=== PATIENT | female | born 1935 | race Caucasian/White ===

== ENCOUNTER 2017-08-30 16:56 | Emergency (ER) | payer MEDICARE, OTHER ==
[~2017-08-30] VITALS: Ht 162.6 cm; Wt 86.2 kg
[~2017-08-30 16:56] MED LIST: ALLOPURINOL 10100 M1 PO; ALLOPURINOL 10100 M2 PO; ALLOPURINOL 30300 M3 PO; AMLODIPINE BESYL5 MG PO; ANASTROZOLE1 MG PO; ASA81BEC PO; AUGMENTIN 875875 MG PO; AVELOX 400 MG400 MG PO; AZITHROMYCIN 2250 MG PO; BENEFIBER98 GM; BENICAR20 MG PO; BENICAR40 MG PO; BIPAP MISCELL; CALCIUM + D SO1 EACH PO; CATAPRES PO; CATAPRES-TTS 10.1 MG PO; CELEXA20 MG PO; CENTRUM SILVER1 EAC2 PO; CEPHALEXIN 500500 M3 PO; CHERATUSSIN DA480 ML; CLONIDINE0.1 PO; CO Q-10200 MG PO; CYCLOBENZAPRINE10 MG PO; DARVOCET-N 1001 EAC1; DIABETES HEALT1 EAC1 PO; DIFLUCAN PO; DIGEST ADV INT1 EACH PO; DUONEB 2.5-0.5 M3 ML INH; ELIQUIS5 MG PO; FISH OIL 1,2001 EAC4 PO; HORIZANT600 MG PO; HUMALOG MI100 UNIT/6 SQ; HYDROCODON-ACE1 EACH; HYDROCODON-ACE1 EACH PO; HYDROCODONE-AP1 EAC6 PO; LASIX 40 MG TAB40 M1 PO; LASIX 40 MG TAB40 M2 PO; LEVEMIR100 UNIT/1 SUBQ; LEVSIN0.125 MG PO; LIPITOR 20 MG T20 M1 PO; LORTABELXR PO; MEDROL DOSPAK21 TA1; MOBIC7.5 MG PO; MUCINEX TA600 MG/TA2 PO; MUCINEX600 MG PO; MULTIVITAMINS; NITROFURANTOIN100 MG PO; NITROFURANTOIN25 MG PO; NORVASC5 MG PO; NOVOLOG100 UNIT/1 SUBQ; OSCIMIN SL0.125 MG SL; PREDNISONE 10 M10 M1; PREDNISONE 10 M10 M1 PO; PREDNISONE 10 M10 MG PO; PREDNISONE50 MG PO; PRILOSEC 20 MG20 MG PO; PRISTIQ50 MG PO; PULMICORT0.25 MG/3 INH; PULMICORT0.5 MG/22 INH; PURELAX510 GM PO; SIMVASTATIN40 MG PO; SINGULAIR 10 MG10 M1 PO; STOOL SOFTENER50 MG PO; SYMBICORT160 MCG/4. INH; TESSALON PERLE100 MG PO; TESSALON200 MG PO; TYLENOL325 MG PO; VENTOLIN HFA 1818 GM INH; VENTOLIN HFA INH8 GM INH; VITAMIN D1000 UNI1 PO; ZOCOR80 MG PO; ZPAK PO; calcium; digestive advantage PO
[2017-08-30] MEDS ORDERED: ELIQUIS2.5 MG PO (17:10)
[2017-08-30] MEDS ORDERED: NITROFURANTOIN50 M2 PO (17:13)
[2017-08-30] MEDS ORDERED: NORCO 5-325 TA1 EACH PO (18:40)
[2017-08-30 19:55] VITALS: BP 173/72
== END 2017-08-30 19:56 | disposition home or self-care (01) ==
LOC: M.ERS 16:56
DX: S52.021A Displaced fracture of olecranon process without intraarticular extension of right ulna, initial encounter for closed fracture (principal); S09.8XXA Other specified injuries of head, initial encounter; J44.9 Chronic obstructive pulmonary disease, unspecified; I10 Essential (primary) hypertension; E11.9 Type 2 diabetes mellitus without complications; G89.29 Other chronic pain; M54.9 Dorsalgia, unspecified; M19.90 Unspecified osteoarthritis, unspecified site; I48.91 Unspecified atrial fibrillation; G47.33 Obstructive sleep apnea (adult) (pediatric); Z88.2 Allergy status to sulfonamides; Z79.4 Long term (current) use of insulin; W01.190A Fall on same level from slipping, tripping and stumbling with subsequent striking against furniture, initial encounter; Y93.89 Activity, other specified; Y92.090 Kitchen in other non-institutional residence as the place of occurrence of the external cause; Y99.8 Other external cause status

== ENCOUNTER 2017-09-25 10:17 | Inpatient (IN) | payer MEDICARE, OTHER ==
[~2017-09-25] VITALS: Ht 162.6 cm; Wt 95.3 kg
[~2017-09-25 10:17] MED LIST changes: +ELIQUIS2.5 MG PO; +NITROFURANTOIN50 M2 PO; +NORCO 5-325 TA1 EACH PO
[2017-09-25 10:23] VITALS: BP 138/87
[2017-09-25 10:47] LABS: ABSOLUTE BASOPHILS 0.1 thou/uL (0.0-0.2); ABSOLUTE LYMPHOCYTES 1.6 thou/uL (0.8-5.3); ABSOLUTE MONOCYTES 1.1 thou/uL (0.0-1.2); BASOPHILS 1.2 %; EOSINOPHILS 0.7 %; HEMATOCRIT 35.1 % (37.0-47.0); HEMOGLOBIN 11.3 gm/dL (12.0-15.0); MCH 30.3 pg (26.0-34.0); MCHC 32.2 g/dL (28.0-37.0); MCV 94.1 fL (80.0-100.0); MONOCYTES 15.8 %; MPV 8.8 fl. (7.2-11.1); NUCLEATED RBCS 0 /100WBC; PLATELET COUNT* 310 thou/uL (150-400); POLYS 59.3 %; RBC 3.73 mil/uL (4.20-5.00); RDW-CV 14.9 % (10.5-14.5); WBC 6.8 thou/uL (4.0-11.0)
[2017-09-25 10:55] LABS: CALCIUM 8.3 mg/dL (8.5-10.1); CREATININE 1.3 mg/dL (0.6-1.3); POTASSIUM 3.6 mmol/L (3.5-5.1)
[2017-09-25 11:00] LABS: ALBUMIN 2.9 g/dL (3.4-5.0); TOTAL BILIRUBIN 0.6 mg/dL (<0.1-1.0); TOTAL PROTEIN 6.2 g/dL (6.4-8.2)
[2017-09-25 11:04] LABS: BE 0.7 mmol/L (-2 to +3); HCO3 25.5 mmol/L (22.0-26.0); PCO2 41.4 mmHg (35.0-45.0); PO2 94.3 mmHg (75.0-100.0); pH 7.407 (7.340-7.450)
[2017-09-25] MEDS ORDERED: TESSALON PERLE100 MG PO (11:06)
[2017-09-25] MEDS ORDERED: LIPITOR 20 MG T20 M1 PO (11:06)
[2017-09-25] MEDS ORDERED: ELIQUIS5 MG PO (11:09)
[2017-09-25] MEDS ORDERED: CENTRUM SILVER1 EAC4 PO (11:11)
[2017-09-25] MEDS ORDERED: MUCINEX D ER 61 EACH PO (11:11)
[2017-09-25] MEDS ORDERED: NOVOLOG100 UNIT/1 SUBQ (11:12)
[2017-09-25] MEDS ORDERED: PROBIOTIC1 EAC1 PO (11:13)
[2017-09-25] MEDS ORDERED: PULMICORT0.5 MG/22 INH (11:14)
[2017-09-25] MEDS ORDERED: VITAMIN D3400 UNIT PO (11:15)
[2017-09-25 13:45] VITALS: BP 143/53
[2017-09-25 13:49] LABS: INFLUENZA A ANTIGEN None Detected (None Detect)
[2017-09-25 14:00] VITALS: BP 150/57
[2017-09-25 20:30] VITALS: BP 137/48
[2017-09-25 23:53] VITALS: BP 128/47
[2017-09-26 04:00] VITALS: BP 105/54
[2017-09-26 05:10] LABS: ABSOLUTE LYMPHOCYTES 0.4 thou/uL (0.8-5.3); ABSOLUTE MONOCYTES 0.3 thou/uL (0.0-1.2); ABSOLUTE NEUTROPHILS 3.1 thou/uL (1.6-8.1); BASOPHILS 0.2 %; HEMATOCRIT 32.5 % (37.0-47.0); HEMOGLOBIN 10.5 gm/dL (12.0-15.0); LYMPHOCYTES 10.9 %; MCH 30.2 pg (26.0-34.0); MCHC 32.2 g/dL (28.0-37.0); MCV 93.5 fL (80.0-100.0); MONOCYTES 7.1 %; MPV 9.3 fl. (7.2-11.1); NUCLEATED RBCS 0 /100WBC; PLATELET COUNT* 278 thou/uL (150-400); POLYS 81.8 %; RBC 3.47 mil/uL (4.20-5.00); RDW-CV 14.8 % (10.5-14.5); WBC 3.8 thou/uL (4.0-11.0)
[2017-09-26 05:57] LABS: CALCIUM 8.2 mg/dL (8.5-10.1); CREATININE 1.7 mg/dL (0.6-1.3); POTASSIUM 4.1 mmol/L (3.5-5.1)
[2017-09-26 08:00] VITALS: BP 145/66
[2017-09-26 10:26] LABS: URINE BILIRUBIN NEGATIVE (Negative); URINE BLOOD NEGATIVE (Negative); URINE CLARITY SL CLOUDY; URINE COLOR YELLOW; URINE GLUCOSE-RANDOM TRACE (Negative); URINE KETONES NEGATIVE (Negative); URINE LEUKOCYTES-REFLEX NEGATIVE (Negative); URINE NITRITE-REFLEX NEGATIVE (Negative); URINE PROTEIN 1+ (Negative); URINE SPECIFIC GRAVITY 1.025 (1.005-1.030); URINE UROBILINOGEN 0.2 E.U./dl (0.2-1.0)
[2017-09-26 10:35] LABS: CASTS None Seen /LPF (None Seen); CRYSTALS None Seen /LPF (None Seen); SQUAMOUS >10 Many /LPF (0-3); URINE RBC None Seen /HPF (0-2); URINE WBC-REFLEX 0-5 Rare /HPF (0-5)
[2017-09-26 19:45] VITALS: BP 109/39
[2017-09-26 23:49] VITALS: BP 142/51
[2017-09-27 03:08] LABS: GLYCOHEMOGLOBIN (HGB A1C) 7.1 % (4.8-5.6)
[2017-09-27 04:02] LABS: HEMATOCRIT 30.8 % (37.0-47.0); HEMOGLOBIN 9.9 gm/dL (12.0-15.0); MCHC 32.2 g/dL (28.0-37.0); MCV 93.2 fL (80.0-100.0); NUCLEATED RBCS 0 /100WBC; PLATELET COUNT* 256 thou/uL (150-400); RDW-CV 14.6 % (10.5-14.5)
[2017-09-27 04:20] LABS: ALBUMIN 2.5 g/dL (3.4-5.0); CALCIUM 8.1 mg/dL (8.5-10.1); POTASSIUM 3.9 mmol/L (3.5-5.1); TOTAL BILIRUBIN 0.4 mg/dL (<0.1-1.0); TOTAL PROTEIN 5.5 g/dL (6.4-8.2)
[2017-09-27 04:23] LABS: WBC 13.8 thou/uL (4.0-11.0)
[2017-09-27 06:54] LABS: ABSOLUTE LYMPHOCYTES 0.7 thou/uL (0.8-5.3); ABSOLUTE MONOCYTES 0.3 thou/uL (0.0-1.2); ABSOLUTE NEUTROPHILS 12.8 thou/uL (1.6-8.1); PLATELET ESTIMATE ADEQUATE
[2017-09-27 06:55] LABS: ANISOCYTOSIS 1+; OVALOCYTES 1+; POIKILOCYTOSIS 1+
[2017-09-27 07:30] VITALS: BP 142/50
[2017-09-27 16:00] VITALS: BP 140/44
[2017-09-27 20:00] VITALS: BP 152/65
[2017-09-28 07:45] VITALS: BP 115/50
[2017-09-28 11:45] LABS: CALCIUM 8.2 mg/dL (8.5-10.1); POTASSIUM 4.4 mmol/L (3.5-5.1)
[2017-09-28 16:50] VITALS: BP 137/59
[2017-09-28 19:50] VITALS: BP 129/54
[2017-09-29 08:10] VITALS: BP 156/57
[2017-09-29 10:53] LABS: CALCIUM 7.9 mg/dL (8.5-10.1); CREATININE 1.8 mg/dL (0.6-1.3); POTASSIUM 4.1 mmol/L (3.5-5.1)
[2017-09-29 11:21] VITALS: BP 156/57
[2017-09-29] MEDS ORDERED: ELIQUIS2.5 MG PO (12:22)
[2017-09-29] MEDS ORDERED: LEVAQUIN 250 M250 MG PO (12:23)
[2017-09-29] MEDS ORDERED: HYDROCODONE-AP1 EAC6 PO (12:25)
[2017-09-29] MEDS ORDERED: PREDNISONE 10 M10 MG PO (12:26)
[2017-09-29] MEDS ORDERED: PROTONIX40 M1 PO (12:27)
[2017-09-29] MEDS ORDERED: VITAMIN D1000 UNI1 PO (12:29)
== END 2017-09-29 13:40 | DRG 177 ==
LOC: M.ERS 10:17 → M.TBA-ER 12:51 → M.2W 12:51 → M.3W 09-26 16:35
PROVIDERS: Personal Emergency Response Attendant; ADMIT Internal Medicine
DX: J10.00 Influenza due to other identified influenza virus with unspecified type of pneumonia (principal); J96.21 Acute and chronic respiratory failure with hypoxia; J15.6 Pneumonia due to other Gram-negative bacteria; J44.1 Chronic obstructive pulmonary disease with (acute) exacerbation; J44.0 Chronic obstructive pulmonary disease with (acute) lower respiratory infection; R65.10 Systemic inflammatory response syndrome (SIRS) of non-infectious origin without acute organ dysfunction; N17.9 Acute kidney failure, unspecified; E11.9 Type 2 diabetes mellitus without complications; J20.9 Acute bronchitis, unspecified; I10 Essential (primary) hypertension; M19.90 Unspecified osteoarthritis, unspecified site; G47.33 Obstructive sleep apnea (adult) (pediatric); I48.91 Unspecified atrial fibrillation; Z87.891 Personal history of nicotine dependence; Z86.73 Personal history of transient ischemic attack (TIA), and cerebral infarction without residual deficits; Z79.01 Long term (current) use of anticoagulants; Z79.4 Long term (current) use of insulin; Z79.899 Other long term (current) drug therapy; Z88.2 Allergy status to sulfonamides; Z82.49 Family history of ischemic heart disease and other diseases of the circulatory system; Z83.3 Family history of diabetes mellitus

== ENCOUNTER 2017-10-03 11:34 | Inpatient (IN) | payer MEDICARE, OTHER ==
[~2017-10-03] VITALS: Ht 160 cm; Wt 88.5 kg
[~2017-10-03 11:34] MED LIST changes: +CENTRUM SILVER1 EAC4 PO; +LEVAQUIN 250 M250 MG PO; +MUCINEX D ER 61 EACH PO; +PROBIOTIC1 EAC1 PO; +PROTONIX40 M1 PO; +VITAMIN D3400 UNIT PO
[2017-10-03 11:48] VITALS: BP 183/89
[2017-10-03 13:03] LABS: BE 4.2 mmol/L (-2 to +3); HCO3 28.7 mmol/L (22.0-26.0); PO2 79.7 mmHg (75.0-100.0); pH 7.443 (7.340-7.450)
[2017-10-03 13:26] LABS: HEMATOCRIT 36.4 % (37.0-47.0); HEMOGLOBIN 11.4 gm/dL (12.0-15.0); MCH 29.4 pg (26.0-34.0); MCHC 31.3 g/dL (28.0-37.0); MCV 93.9 fL (80.0-100.0); MPV 9.8 fl. (7.2-11.1); NUCLEATED RBCS 0 /100WBC; PLATELET COUNT* 286 thou/uL (150-400); RBC 3.88 mil/uL (4.20-5.00); WBC 28.4 thou/uL (4.0-11.0)
[2017-10-03 13:34] LABS: CREATININE 1.3 mg/dL (0.6-1.3); POTASSIUM 4.4 mmol/L (3.5-5.1)
[2017-10-03 13:43] LABS: ALBUMIN 2.8 g/dL (3.4-5.0); TOTAL BILIRUBIN 1.6 mg/dL (<0.1-1.0); TOTAL PROTEIN 6.4 g/dL (6.4-8.2)
[2017-10-03 14:07] LABS: ABSOLUTE LYMPHOCYTES 1.7 thou/uL (0.8-5.3); ABSOLUTE MONOCYTES 0.9 thou/uL (0.0-1.2); ABSOLUTE NEUTROPHILS 25.8 thou/uL (1.6-8.1); ATYPICAL LYMPHS 3 %; PLATELET ESTIMATE ADEQUATE
[2017-10-03 16:32] VITALS: BP 125/68
--- NOTE | 2017-10-03 17:09 | EKG ---
[place] [address] ELECTROCARDIOGRAM REPORT Name: GORDOAZEB Room: [address] R.#: [id number] Admission: 10/03/17 Attend Phys: Ruby Jolly MD Discharge: Date of : 35 Report #: [id number] THIS REPORT FOR: //name// [facility] ED Test Date: 2017-10-03 Test Time: 12:56:26 Pat Name: AZEB ALARCON Department: Room: [facility] Gender: F Director Of Retail Analytics: Jose De Jesus FANG : 1935 Requested By: Marley Gil Order Number: [id number] MD: Gallo Martinez Measurements Intervals [place] Rate: 85 P: VT: QRS: -15 QRSD: 141 T: 4 QT: 415 QTc: 494 Interpretive Statements Atrial fibrillation Ventricular premature complex Right bundle branch block Compared to ECG 06/20/2016 13:45:59 Ventricular premature complex(es) now present Electronically Signed On 10-03-2017 17:09:15 SOLID STATE TESTER by Gallo Martinez [email or web address] <ELECTRONICALLY SIGNED> By: Gallo Martinez MD, [facility] 10/03/17 1709 [id number] Gallo Martinez MD, [facility] /EPI
[2017-10-03] MEDS ORDERED: MUCINEX600 MG PO (18:57)
[2017-10-03 20:00] VITALS: BP 141/83
[2017-10-04 00:33] VITALS: BP 139/59
[2017-10-04 04:43] VITALS: BP 139/58
[2017-10-04 05:00] LABS: HEMATOCRIT 28.7 % (37.0-47.0); MCH 30.1 pg (26.0-34.0); MCHC 32.9 g/dL (28.0-37.0); MCV 91.6 fL (80.0-100.0); MPV 10.2 fl. (7.2-11.1); RBC 3.14 mil/uL (4.20-5.00); RDW-CV 14.8 % (10.5-14.5); WBC 14.7 thou/uL (4.0-11.0)
[2017-10-04 05:02] LABS: CALCIUM 8.4 mg/dL (8.5-10.1); CREATININE 1.8 mg/dL (0.6-1.3); POTASSIUM 4.3 mmol/L (3.5-5.1)
[2017-10-04 05:27] LABS: HEMOGLOBIN 9.4 gm/dL (12.0-15.0)
--- NOTE | 2017-10-04 05:38 | NUR ---
PT CARE ASSUMED AFTER REPORT. ASSESSMENT COMPLETE. AFIB/AFLUTTER ON MONITOR. O2 2L NC. DENIES PAIN. INCREASED BG TREATED PER ORDERS. WEAK. UP TO BEDSIDE COMMODE WITH ASSIST. FALL PRECAUTIONS IN PLACE INCLUDING BED ALARM. CALL LIGHT IN REACH. BED IN LOWEST POSITION. SLOW TO PROGRESS TOWARDS GOALS.
[2017-10-04 08:00] VITALS: BP 104/62
[2017-10-04 12:07] VITALS: BP 150/71
--- NOTE | 2017-10-04 12:44 | NUR ---
CM ASSESSMENT: Pt is A&O. Resides at home with dtr. Per chart, it appears that Pt has been at [facility], spoke with Karol, tools administrator, she confirmed that Pt had recently discharged from there. Pt states that her dtr takes care of her. Pt wears home o2 at [facility], provided through [facility] and has a cpap. Pt uses a walker for mobility. Hx of , unsure of the name of the agency. Hx of [facility]. Pt's goal is to return home. Following for dc needs.
[2017-10-04 17:17] VITALS: BP 156/68
--- NOTE | 2017-10-04 19:11 | NUR ---
PT SLEPT THROUGHOUT DAY DENIES PAIN OR DISCOMFORT SOA NOTED ON 2L NC IN BED DID NOT GET UP EXCEPT TO VOID CALL LIGHT IN REACH
[2017-10-04 20:00] VITALS: BP 147/58
[2017-10-05] VITALS (7 sets, daily range): BP systolic 98–159; BP diastolic 43–79
[2017-10-05 05:26] LABS: HEMATOCRIT 33.3 % (37.0-47.0); HEMOGLOBIN 10.7 gm/dL (12.0-15.0); MCH 29.4 pg (26.0-34.0); MCHC 32.1 g/dL (28.0-37.0); MCV 91.6 fL (80.0-100.0); MPV 9.8 fl. (7.2-11.1); NUCLEATED RBCS 0 /100WBC; PLATELET COUNT* 298 thou/uL (150-400); RBC 3.64 mil/uL (4.20-5.00); RDW-CV 14.8 % (10.5-14.5); WBC 27.3 thou/uL (4.0-11.0)
--- NOTE | 2017-10-05 05:30 | NUR ---
PT CARE ASSUMED AFTER REPORT. ASSESSMENT COMPLETE. AFIB/AFLUTTER ON MONITOR. DENIES PAIN. O2 2L NC. PT WEAK. FALL PRECAUTIONS IN PLACE INCLUDING BED ALARM. CALL LIGHT IN REACH. BED IN LOWEST POSITION. SLOW TO PROGRESS TOWARDS GOALS.
[2017-10-05 05:53] LABS: CALCIUM 8.5 mg/dL (8.5-10.1); CREATININE 1.6 mg/dL (0.6-1.3)
[2017-10-05 06:06] LABS: ABSOLUTE MONOCYTES 1.6 thou/uL (0.0-1.2); ABSOLUTE NEUTROPHILS 22.7 thou/uL (1.6-8.1); PLATELET ESTIMATE ADEQUATE
[2017-10-05 06:07] LABS: ANISOCYTOSIS 1+; POIKILOCYTOSIS 1+
--- NOTE | 2017-10-05 09:44 | NUR ---
CM faxed initial referral to [facility] wants Pt to dc there for SNF. Awaiting decision to accept.
--- NOTE | 2017-10-05 18:48 | NUR ---
PT C/O OF SOA WHILE EATING BREAKFAST. PT WAS ABLE TO RESOLVE ON OWN AFTER GUIDED BREATHING EXERCISE. RESPIRATIONS SLIGHTLY LABORED, COARSE THROUGHOUT, LOOSE OCCASIONAL COUGH. O2 SAT MID 90'S 2L O2 NC. PT UP TO BSC WITH MOD ASSIST X1. PT ABLE TO MAKE NEEDS KNOWN, CALL LIGHT IN REACH
[2017-10-06 03:45] VITALS: BP 144/56
[2017-10-06 05:10] LABS: HEMATOCRIT 30.6 % (37.0-47.0); HEMOGLOBIN 9.8 gm/dL (12.0-15.0); MCH 29.9 pg (26.0-34.0); MCHC 31.9 g/dL (28.0-37.0); MCV 93.7 fL (80.0-100.0); MPV 11.1 fl. (7.2-11.1); RBC 3.26 mil/uL (4.20-5.00); RDW-CV 15.4 % (10.5-14.5); WBC 16.5 thou/uL (4.0-11.0)
[2017-10-06 05:26] LABS: ALBUMIN 2.4 g/dL (3.4-5.0); CREATININE 1.6 mg/dL (0.6-1.3); MAGNESIUM 2.2 mg/dL (1.8-2.4); POTASSIUM 4.8 mmol/L (3.5-5.1); TOTAL BILIRUBIN 0.7 mg/dL (<0.1-1.0); TOTAL PROTEIN 5.1 g/dL (6.4-8.2)
--- NOTE | 2017-10-06 05:42 | NUR ---
PT CARE ASSUMED AFTER REPORT. ASSESSMENT COMPLETE. AFIB/AFLUTTER ON MONITOR. BG 37 PER AM LABS. HYPOGLYCEMIC PROTOCOL FOLLOWED. D50 GIVEN. WILL CONTINUE TO MONITOR GLUCOSE LEVEL. O2 2L NC. DENIES PAIN. FALL PRECAUTIONS IN PLACE INCLUDING BED ALARM. CALL LIGHT IN REACH. BED IN LOWEST POSITION. SLOW TO PROGRESS TOWARDS GOALS.
[2017-10-06 09:00] VITALS: BP 143/62
[2017-10-06 12:05] VITALS: BP 144/64
--- NOTE | 2017-10-06 15:32 | NUR ---
I have reviewed the documentation by RINA SONG from 10/06/17 to 10/06/17 and I concur with it. GALE SORIANO
[2017-10-06 15:33] VITALS: BP 176/67
--- NOTE | 2017-10-06 18:25 | NUR ---
ASSUMED PT CARE AT 0730, FULL ASSESMENT DONE CHARTED. PT A/O X4, DENIES PAIN, VSS, BS IN APPROPRIATE RANGE THIS SHIFT, INSULIN GIVEN ONLY WITH DINNER. PT AFIB/AFLUTTER ON THE MONITOR. PT HAS PRODUCTIVE COUGH, WHEEZY, ON 2L O2 SATS 98%. PT DID COUGH WHEN TAKING PILLS THIS AM, ST CONSULTED, PT OK WITH THIN LIQUIDS, NO STRAW. PT EDUCATED ON THIS. PT UP WITH 1 ASSIST TO BSC. FALL PRECATIONS IN PLACE, CALL LIGHT IN REACH, PT USES IT APPROPRIATLY. WILL CONTINUE WITH PLAN OF CARE.
[2017-10-06 19:45] VITALS: BP 151/69
[2017-10-07 00:04] VITALS: BP 131/62
[2017-10-07 04:00] VITALS: BP 136/70
--- NOTE | 2017-10-07 05:23 | NUR ---
END SHIFT: PT RESTED WELL. NO COMPLAINS. AFIB NOTED ON MONIOR. ASSESSMENT UNCHANGED. VSS. 2L NC ON AND TOLERATING WELL. R ELBOW BRACE IN PLACE. SAFETY PRECAUTIONS IN PLACE. CALL LIGHT IN REACH. PERFORMED HOURLY ROUNDING. WILL CONT TO MONITOR.
[2017-10-07 05:35] LABS: HEMATOCRIT 30.2 % (37.0-47.0); HEMOGLOBIN 9.7 gm/dL (12.0-15.0); MCH 29.9 pg (26.0-34.0); MCV 93.3 fL (80.0-100.0); MPV 10.2 fl. (7.2-11.1); RBC 3.24 mil/uL (4.20-5.00); RDW-CV 15.4 % (10.5-14.5)
[2017-10-07 05:53] LABS: CALCIUM 7.8 mg/dL (8.5-10.1); CREATININE 1.8 mg/dL (0.6-1.3); MAGNESIUM 2.2 mg/dL (1.8-2.4); POTASSIUM 4.7 mmol/L (3.5-5.1)
[2017-10-07 08:04] VITALS: BP 117/76
[2017-10-07 12:00] VITALS: BP 145/65
[2017-10-07 20:00] VITALS: BP 141/58
--- NOTE | 2017-10-07 20:40 | NUR ---
ASSUMED CARES OF PT AT 1810 FROM TELE TRANSFER. PT ARRIVED VIA BED. BED IN LOW AND LOCKED POSITION. CALL BUTTON AND PERSONAL ITEMS IN PT REACH. DOCUMENTATION/ASSESSMENT REVIEWED AND AGREED BY THIS NURSE. PT STABLE AT TRANSFER AND SHIFT CHANGE. PT A&O X4, TALKATIVE, COOPERATIVE, DAUGHTER AT BEDSIDE. PT EDUCATED ON ROOM AND FALL PRECAUTIONS TO REINFORCE KNOWLEDGE AND AWARENESS. PT DENIES PAIN. LEFT HAND 22 GAUGE IV PATENT TO FLUSH. LUNGS COARSE TO AUSCULTATION. HOURLY ROUNDS AND ACCU CHECKS COMPLETED FOR THIS SHIFT. REPORT TO CONTINUOUS CRUSHER OPERATOR FOR CONTINUED CARES. BM TODAY.
[2017-10-08 07:30] VITALS: BP 150/68
--- NOTE | 2017-10-08 08:08 | NUR ---
PATIENT PROGRESS CONTINUES TOWARDS GOALS WITHOUT S/SX OF ACUTE DISTRESS IV ABX CONTINUES WITHOUT S/SX OF ADVERSE EFFECTS MEDICATIONS ADMINISTERED WHOLE 1 AT A TIME WITH APPLESAUCE PATIENT RESTING COMFORTABLY REPORT GIVEN TO ONCOMING RN
--- NOTE | 2017-10-08 09:39 | NUR ---
[facility] should [facility] a bed available Tuesday or Tuesday for Pt. Spoke with Neha, she had a few questions 1. is bipap continuous-no, at NOC 2. how old is fx 3. smoke free facility, does Pt still smoke? p:[phone] f:[phone]
[2017-10-08 16:00] VITALS: BP 137/50
--- NOTE | 2017-10-08 16:11 | NUR ---
ASSUMED CARE AT 0730. ALERT ORIENTED PLEASANT COPERATIVE. HX OF COPD PNEUMONIA. O2 ON AT 2L/M PER N/C CONTINOUSLY. SITTING UP IN CHAIR AT BEDSIDE FOR BREAKFAST. FEEDS SELF APPETITE GOOD. BLOOD SUGARS RUNNING HIGH [phone]. WORKING WITH P.T. AMBULATING IN HALLS WITH WALKER. DENIES PAIN OR REQUESTS. SLEPT AT LONG INTERVAL AFTER P.T. SESSION. USES CALL LIGHT APPROPRIATELY FOR ASSISTANCE. WILL BE DISCHARGED TOMORROW PER HIMS. IV ANTIBIOTICS WERE INFUSED NEW ORDERS PER HIMS.
[2017-10-08 17:33] VITALS: BP 132/48
--- NOTE | 2017-10-08 19:02 | NUR ---
PT. UP IN CHAIR AT BEDSIDE FOR SUPPER MEAL. BLOOD SUGAR 271 AT SUPPER. DENIES REQUESTS BRACE REAPPLIED ON RT. ELBOW X 1.
[2017-10-08 20:00] VITALS: BP 149/55
--- NOTE | 2017-10-09 04:54 | NUR ---
ASSUMED CARE OF PATIENT AT 1900 THE PATIENT O2 SAT MAINTAINED ON NC AT 2 L CONTINUES TO BE UP WITH ASSIST ROUTINE REGIMEN CONTINUES TO BE EFFECTIVE FOR SX MANAGEMENT PATINET PROGRESSING TOWARDS GOALS WITHOUT S/SX OF ACUTE DISTRESS SHIFT SAFETY INTERVENTIONS CONTINUE BED LOWERED WHEELS LOCKED CALL LIGHT IN REACH SIDE RAILS UP REPORT TO BE GIVEN TO ONCOMING RN
[2017-10-09 09:30] VITALS: BP 165/56
[2017-10-09 16:40] VITALS: BP 149/47
--- NOTE | 2017-10-09 20:47 | NUR ---
ASSUMED CARES OF PT AT 0700. PT IN BED, BED IN LOW LOCKED POSITION. FALL PRECAUTIONS IN PLACE. CALL BUTTON AND PERSONAL ITEMS IN PT REACH. PT A&O X4, IRREGULAR R/T CONTROLLED AFIB. VSS ON RA, AFEBRILE, PERRLA, SKIN INTACT, SCATTERED BRUISING AND SCARS. PT UP 1-2 ASSIST/WALKER TO BSC/WEAK. LEFT HAND 22 GAUGE IV PATENT TO FLUSH. HOURLY ROUNDING, Q2 TURNS AND ACCU CHECKS COMPLETED, LISPRO AND HUMALIN R GIVEN ORDERED. MEDS TAKEN 1-2 AT A TIME IN APPLESAUCE/MARY ANNE. PUDDING, WELL DONE. LOOSE, NONE PRODUCTIVE COUGH OCC. PT PROGRESSING TOWARDS GOAL, POSSIBLE D/C TOMORROW BACK TO SNF. REPORT TO HEAT ENGINEERING TEACHER FOR CONTINUED CARES.
[2017-10-09 21:35] VITALS: BP 167/80
--- NOTE | 2017-10-10 06:34 | NUR ---
Pt reports she slept "very well" overnight. Incontinent of bowel & bladder while up in chair last evening, likely related to coughing spell she had. VSS, and remains on RA with SaO2 mid-90s. States she is hopeful of being discharged today. Will continue to monitor.
[2017-10-10 08:00] VITALS: BP 169/73
--- NOTE | 2017-10-10 12:21 | NUR ---
Nutrition: Pt seen for LOS. Pt and dtr stated that pt is discharging to facility in [place] today. They had no nutrition questions/concerns at this time. Low risk.
[2017-10-10] MEDS ORDERED: AZITHROMYCIN 2250 MG PO (14:21)
[2017-10-10 14:22] VITALS: BP 169/73
[2017-10-10] MEDS ORDERED: CEFDINIR300 MG PO (14:22)
[2017-10-10 14:43] VITALS: BP 169/73
--- NOTE | 2017-10-10 14:44 | NUR ---
SW received dc orders and called [facility] [phone] and spoke with Kelsi who requested updated information and answers to her questions to which SW explained Bipap only at night, nurse stated actually CPAP and pt stated that she does not use her machine. According to nurse, pt has used 2L O2 at night. SW relayed info (after speaking with pt dtr) that pt fracture is at least 6 weeks old and pt has not smoked since the 1960s. Pt dtr to provide transportation. PALOMO faxed dc orders to fax [phone] and provided nurse with number and name of Iesha to whom to call report.
--- NOTE | 2017-10-10 16:07 | NUR ---
[facility] LEFT WITH DAUGHTER ASSISTX2 WITH A WALKER SOA AND WHEEZING STILL NOTED WITH COARSE LUNG SOUNDS PT TO WEAR 2L NC AT NIGHT OR CPAP/BIPAP AT NIGHT AND FACILITY AWARE PT IS DIABETIC ACHS ALERT AND ORIENTED FORGETFUL AND CONFUSED AT TIMES INCONTINENT NOTED IRREGULAR HR HX OF A-FIB ON ELIQUIS GAVE NUMBER TO JOCELYN IF NEED ANY QUESTIONS OR CONCERNS ANSWERED
== END 2017-10-10 16:10 | DRG 177 ==
LOC: M.ERS 11:34 → M.TBA-ER 14:56 → M.2W 14:56 → M.3W 10-07 18:11
PROVIDERS: Personal Emergency Response Attendant; ADMIT Internal Medicine
DX: J11.08 Influenza due to unidentified influenza virus with specified pneumonia (principal); J96.91 Respiratory failure, unspecified with hypoxia; J15.6 Pneumonia due to other Gram-negative bacteria; J44.1 Chronic obstructive pulmonary disease with (acute) exacerbation; J44.0 Chronic obstructive pulmonary disease with (acute) lower respiratory infection; N17.9 Acute kidney failure, unspecified; I10 Essential (primary) hypertension; E11.9 Type 2 diabetes mellitus without complications; M19.90 Unspecified osteoarthritis, unspecified site; G47.33 Obstructive sleep apnea (adult) (pediatric); K59.00 Constipation, unspecified; I48.91 Unspecified atrial fibrillation; Z87.891 Personal history of nicotine dependence; Z79.01 Long term (current) use of anticoagulants; Z79.4 Long term (current) use of insulin; Z79.899 Other long term (current) drug therapy; Z88.2 Allergy status to sulfonamides; Z82.49 Family history of ischemic heart disease and other diseases of the circulatory system; Z83.3 Family history of diabetes mellitus

== ENCOUNTER 2018-02-20 09:48 | Inpatient (IN) | payer MEDICARE, OTHER ==
[~2018-02-20] VITALS: Ht 162.6 cm; Wt 81.6 kg
[~2018-02-20 09:48] MED LIST changes: +CEFDINIR300 MG PO
[2018-02-20 09:49] VITALS: BP 181/74
[2018-02-20 10:31] LABS: ABSOLUTE BASOPHILS 0.2 thou/uL (0.0-0.2); ABSOLUTE EOSINOPHILS 0.2 thou/uL (0.0-0.7); ABSOLUTE LYMPHOCYTES 2.2 thou/uL (0.8-5.3); ABSOLUTE MONOCYTES 1.3 thou/uL (0.0-1.2); BASOPHILS 1.3 %; EOSINOPHILS 1.6 %; HEMATOCRIT 36.6 % (37.0-47.0); HEMOGLOBIN 11.7 gm/dL (12.0-15.0); MCH 29.3 pg (26.0-34.0); MCHC 31.9 g/dL (28.0-37.0); MCV 91.8 fL (80.0-100.0); MONOCYTES 10.2 %; MPV 9.4 fl. (7.2-11.1); NUCLEATED RBCS 0 /100WBC; PLATELET COUNT* 275 thou/uL (150-400); POLYS 69.9 %; RBC 3.98 mil/uL (4.20-5.00); RDW-CV 15.6 % (10.5-14.5); WBC 12.8 thou/uL (4.0-11.0)
[2018-02-20 10:42] LABS: ANION GAP 7 mmol/L (7-16); BUN 25 mg/dL (7-18); CALCIUM 9.2 mg/dL (8.5-10.1); CHLORIDE 109 mmol/L (98-107); CO2 27 mmol/L (21-32); CREATININE 1.3 mg/dL (0.6-1.3); GLUCOSE 107 mg/dL (70-99); POTASSIUM 3.5 mmol/L (3.5-5.1); SODIUM 143 mmol/L (136-145)
[2018-02-20 10:53] LABS: ALBUMIN 3.1 g/dL (3.4-5.0); ALKALINE PHOSPHATASE 77 U/L (46-116); NT-PRO BRAIN NAT PEPTIDE 8727 pg/mL (<300); SGOT 15 U/L (15-37); SGPT 14 U/L (30-65); TOTAL BILIRUBIN 0.9 mg/dL (<0.1-1.0); TOTAL PROTEIN 6.5 g/dL (6.4-8.2); TROPONIN-I LEVEL <0.06 ng/mL (<0.06)
[2018-02-20 11:30] LABS: URINE BILIRUBIN NEGATIVE (Negative); URINE BLOOD 1+ (Negative); URINE CLARITY CLEAR; URINE COLOR YELLOW; URINE GLUCOSE-RANDOM NEGATIVE (Negative); URINE KETONES NEGATIVE (Negative); URINE LEUKOCYTES-REFLEX NEGATIVE (Negative); URINE NITRITE-REFLEX NEGATIVE (Negative); URINE PROTEIN 2+ (Negative); URINE SPECIFIC GRAVITY 1.025 (1.005-1.030); URINE UROBILINOGEN 0.2 E.U./dl (0.2-1.0)
[2018-02-20 11:44] LABS: CRYSTALS None Seen /LPF (None Seen); SQUAMOUS NONE SEEN /LPF (0-3); URINE WBC-REFLEX 0-5 Rare /HPF (0-5)
[2018-02-20 11:45] LABS: BACTERIA-REFLEX None Seen /HPF (None Seen); CASTS None Seen /LPF (None Seen); URINE RBC 0-2 Rare /HPF (0-2)
[2018-02-20 13:28] VITALS: BP 149/62
--- NOTE | 2018-02-20 15:29 | EKG ---
[place] [address] ELECTROCARDIOGRAM REPORT Name: AZEB ALARCON Room: [address] IN [facility]#: [id number] Admission: 02/20/18 Attend Phys: Jaxon Hdez MD Discharge: Date of : 35 Report #: [id number] THIS REPORT FOR: //name// [facility] ED Test Date: 2018-02-20 Test Time: 09:53:14 Pat Name: AZEB ALARCON Department: Room: Gender: F Fast Food Sales Assistant: Jose De Jesus GTZ : 1935 Requested By: Carl Kirkland Order Number: [id number] MD: Damaso Renteria Measurements Intervals [place] Rate: 88 P: AR: QRS: -43 QRSD: 147 T: -9 QT: 409 QTc: 495 Interpretive Statements Atrial fibrillation Right bundle branch block septal infarct, age indeterminate Compared to ECG 10/03/2017 12:56:26 Ventricular premature complex(es) no longer present Electronically Signed On 02-20-2018 15:28:58 CDT by Damaso Renteria [email or web address] <ELECTRONICALLY SIGNED> By: Damaso Renteria MD, [facility] 02/20/18 [id number] Damaso Renteria MD, [facility] /EPI
[2018-02-20 16:30] VITALS: BP 152/55
--- NOTE | 2018-02-20 19:00 | NUR ---
ALERT AND ORIENTED X4. FORGETFUL AT TIMES. IV IS PATENT AND INFUSING. DENIES PAIN AND NAUSEA. ATTENDED THERAPY THIS AFTERNOON. TOLERATING DIET. VSS ON 2LO2. HOURLY ROUNDS HAVE BEEN MAINTAINED SINCE ARRIVING ON UNIT. CALL LIGHT IS WITHIN REACH. NURSING WILL CONTINUE TO MONITOR.
[2018-02-20 20:00] VITALS: BP 150/69
[2018-02-21 04:08] LABS: HEMATOCRIT 32.5 % (37.0-47.0); HEMOGLOBIN 10.3 gm/dL (12.0-15.0); MCH 29.3 pg (26.0-34.0); MCHC 31.7 g/dL (28.0-37.0); MCV 92.5 fL (80.0-100.0); RBC 3.51 mil/uL (4.20-5.00); RDW-CV 15.9 % (10.5-14.5); WBC 11.9 thou/uL (4.0-11.0)
[2018-02-21 04:27] LABS: CALCIUM 8.7 mg/dL (8.5-10.1); CREATININE 1.6 mg/dL (0.6-1.3); MAGNESIUM 1.3 mg/dL (1.8-2.4); POTASSIUM 4.4 mmol/L (3.5-5.1)
--- NOTE | 2018-02-21 05:44 | NUR ---
PATIENT ALERT AND ORIENTED X4 BUT FORGETFUL AT TIMES. REPOSITIONED FOR COMFORT. IV ABX INFUSED ORDERED. NON PRODUCTIVE COUGH NOTED. CONTACT ISOLATION MAINTAINED PENDING MRSA RESULTS. VITALS STABLE ON 1.5L NC. CONTINUE TO MONITIOR.
[2018-02-21 08:00] VITALS: BP 166/72
--- NOTE | 2018-02-21 15:13 | NUR ---
MET WITH PT TO DISCUSS HOME SITUATION/DC PLANNING. PT LIVES WITH HER DTR/PARRIS. SHE IS FAIRLY INDEPENDENT AT HOME. USES WALKER, W/C, SHOWER BENCH, NEB O2 AND CPAP THRU [facility]. SHE IS CURRENT WITH [facility] AND WOULD LIKE TO CONTINUE WITH THEM [place]. NOTIFIED THEM THAT PT WAS HOSPITALIZED. PT HAS HAD SNF STAYS AT [facility] AND [facility]. WOULD PREFER [facility] IF NEEDED SNF BUT SHE WANTS TO RETURN HOME AT [place]. DTR PARRIS IS DPOA. WILL FOLLOW ENCOURAGED PT TO WORK WITH THERAPY SO SHE KEEPS UP HER STRENGTH
--- NOTE | 2018-02-21 16:35 | NUR ---
PT C/O SOA AT REST, RESPIRATIONS EVEN AND UNLABORED AT REST. LUNGS CLEAR AND DIM IN BASES, NONPRODUCTIVE LOOSE SOUNDING COUGH. C/O PAIN IN LEGS, GIVEN PAIN MED ORDERED WITH SOME RELIEF ON REASSESSMENT. PT UP TO CHAIR WITH ASSIST X1. PT ABLE TO MAKE NEEDS KNOWN, CALL LIGHT IN REACH
[2018-02-21 16:54] VITALS: BP 127/70
[2018-02-21 20:00] VITALS: BP 131/47
[2018-02-22 04:40] LABS: ABSOLUTE BASOPHILS 0.1 thou/uL (0.0-0.2); ABSOLUTE EOSINOPHILS 0.3 thou/uL (0.0-0.7); ABSOLUTE LYMPHOCYTES 2.3 thou/uL (0.8-5.3); ABSOLUTE MONOCYTES 1.3 thou/uL (0.0-1.2); ABSOLUTE NEUTROPHILS 7.4 thou/uL (1.6-8.1); BASOPHILS 0.7 %; EOSINOPHILS 2.7 %; HEMATOCRIT 31.1 % (37.0-47.0); MCH 29.8 pg (26.0-34.0); MONOCYTES 11.3 %; NUCLEATED RBCS 0 /100WBC; PLATELET COUNT* 205 thou/uL (150-400); POLYS 65.3 %; RBC 3.35 mil/uL (4.20-5.00); RDW-CV 15.8 % (10.5-14.5); WBC 11.3 thou/uL (4.0-11.0)
--- NOTE | 2018-02-22 06:51 | NUR ---
ASSUMED PATIENT CARE AT 1900. PATIENT VERBALIZES CONTENTMENT WITH RELAXING IN BED. IV PATENT TO ABT'S. ALERT AND ORIENTED TIMES FOUR. NO COMPLAINTS OF PAIN OR DISCOMFORT NOTED. HOURLY ROUNDING AND FOOD PRESERVATION SCIENTIST COMPLETED DOCUMENTED
[2018-02-22 09:15] VITALS: BP 128/62
[2018-02-22 17:03] VITALS: BP 138/70
--- NOTE | 2018-02-22 17:15 | NUR ---
ASSUMED CARE OF PATIENT AFTER MORNING REPORT AT 0720. ALERT AND ORIENTED X4. ASSESSMENT COMPLETED AND CHARTED. VSS ON 1.5 LITERS 02. NO COMPLAINTS OF PAIN, NAUSEA, OR SOS THIS SHIFT. BREATHING TREATMENTS ADMINISTEED BY RT. ANTIBIOTICS INFUSED ORDERED. PATIENT UP IN THE CHAIR FOR MEALS THIS SHIFT.RESTING COMFORTABLY IN BED AT THIS TIME. HOURLY ROUNDS MAINTAINED, CALL LIGHT IN REACH, NURSING WILL CONTINUE TO MONITOR.
[2018-02-22 20:10] VITALS: BP 121/49
--- NOTE | 2018-02-23 04:58 | NUR ---
PT RESTED WELL THROUGHOUT HOURLY ROUNDS, LOOSE CONGESTED COUGH NOTED SHIFT PROGRESS , SOA NOTED WHEN UP TO BSC. TOLERATING IV ABX. NO CHANGES NOTED WILL CONITINUE WITH CURRENT PLAN OF CARE.
[2018-02-23 05:37] LABS: CALCIUM 8.3 mg/dL (8.5-10.1); CREATININE 2.1 mg/dL (0.6-1.3); MAGNESIUM 1.6 mg/dL (1.8-2.4); POTASSIUM 4.3 mmol/L (3.5-5.1)
--- NOTE | 2018-02-23 05:38 | NUR ---
AGREE WITH ALL CHARTING BY ELISSA LOPEZ.
[2018-02-23 09:37] VITALS: BP 132/55
--- NOTE | 2018-02-23 12:00 | NUR ---
SPOKE WITH PT.AND DAUGHTER,PARRIS,IN ROOM. TALKED ABOUT DISCHARGE PLANNING, THAT SHE MIGHT BE READY FOR DISCHARGE TOMORROW. DAUGHTER WOULD LIKE FOR HER TO GO TO A SNF FOR SHORT TERM STAY. SHE DOES NOT FEEL SHE CAN TAKE CARE OF HER THE WAY SHE IS RIGHT NOW. ONLY ABLE TO WALK 30 FT.TODAY WITH THERAPY. PT.RELUCTANT BUT WILL ALLOW CM TO MAKE REFERRAL TO [facility] AND WILL TALK WITH DAUGHTER,MORE ABOUT IT. YASMANI SPOKE WITH ANGÉLICA/[facility] [phone] AND FAXED HER REFERRAL [phone].
[2018-02-23 16:00] VITALS: BP 122/43
--- NOTE | 2018-02-23 18:46 | NUR ---
ASSUMED CARE OF PATIENT AFTER MORNING REPORT. ALERT AND ORIENTED X4. ASSESSMENT COMPLETED AND CHARTED. VSS ON 1.5 LITERS 02. IV REMAINS PATENT WITH FLUSHES AND ANTIBIOTICS INFUSED ORDERED. SOLUMEDROL, PREDNISONE AND RT TX GIVEN ORDERED TODAY. PATIENT HAS A MORE PROMINENT AND PRODUCTIVE COUGH THIS AFTERNOON. WORKED WELL WITH PT AND OT TODAY. HOURLY ROUNDS MAINTAIND, CALL LIGTH IN REACH, NURSING WILL CONTINUE TO MONITOR.
[2018-02-23 20:00] VITALS: BP 122/49
[2018-02-24 04:12] LABS: HEMATOCRIT 28.8 % (37.0-47.0); HEMOGLOBIN 9.4 gm/dL (12.0-15.0); MCH 29.9 pg (26.0-34.0); MCHC 32.5 g/dL (28.0-37.0); MPV 9.9 fl. (7.2-11.1); RBC 3.13 mil/uL (4.20-5.00); RDW-CV 15.3 % (10.5-14.5); WBC 7.5 thou/uL (4.0-11.0)
[2018-02-24 04:21] LABS: CALCIUM 8.7 mg/dL (8.5-10.1); CREATININE 2.5 mg/dL (0.6-1.3); MAGNESIUM 1.9 mg/dL (1.8-2.4); POTASSIUM 4.5 mmol/L (3.5-5.1)
--- NOTE | 2018-02-24 05:32 | NUR ---
ASSUMED CARE OF PT AT 1900 PT ALERT AND ORIENTED X4. VS AND ASSESSMENT STABLE. PT BEGAN COUGHING AT 0000 GAVE PRN JACQUES CAO AND LOUIS. PT THEN SLEPT THROUGH THE NIGHT. WILL CONTINUE PLAN OF CARE
[2018-02-24 07:30] VITALS: BP 139/45
--- NOTE | 2018-02-24 09:07 | NUR ---
PT.NOT STABLE FOR DISCHARGE TODAY. NOTIFIED [facility]. THEY HAVE ACCEPTED HER AND COULD TAKE HER TOMORROW IF ORDERS RECEIVED BY NOON. OTHERWISE IT WILL BE TUESDAY BEFORE THEY COULD ACCEPT. WILL NOTIFY PT.AND DAUGHTER. [phone]/[phone].
--- NOTE | 2018-02-24 14:54 | NUR ---
RECEIVED CONSULT FOR POSSIBLE REHAB ADMISSION. CONSULT HAS BEEN ACKNOWLEDGED BY SCRAP DROP OPERATOR AND DR. MASON. PATIENT DX WITH ENCEPHALOPATHY PNUEMONIA AND SEPSIS. SHE IS DEBILITATED AND WORKING WITH THERAPIES. SPOKE WITH THERAPIES AND PATIENT IS IN NEED OF AND APPROPRIATE FOR REHAB. SPOKE WITH PATIENT AND SHE IS WILLING AND AGREEABLE TO ACUTE REHAB. SPOKE WITH ADITI GRUBER AND NOTIFIED PATIENT ACCEPTED TO ACUTE REHAB ONCE MEDICALLY STABLE. THANK YOU FOR THIS CONSULT.
[2018-02-24 16:07] VITALS: BP 134/56
--- NOTE | 2018-02-24 18:32 | NUR ---
PT REMAINS A&OX4. VITAL SIGNS REMAIN STABLE WITH 2L OF O2. NO REPORTS OF PAIN OR NAUSEA. IV REMAINS PATENT WITH FLUIDS AND ANTIBIOTICS INFUSING ORDERED. PT HAD A MORE PROMINENT COUGH THIS AFTERNOON AND REPORTED SOME RELIEF AFTER MEDS. UP WITH 1X ASSIST WITH WALKER TO CHAIR AND COMMODE. HOURLY ROUNDS MAINTAINED, WILL CONTINUE TO MONITOR.
--- NOTE | 2018-02-24 20:05 | NUR ---
GRACIELA HOUSER HAS REVIEWED AND AGREES WITH PREVIOUS NURSES CHARTING.
[2018-02-24 21:30] VITALS: BP 149/60
[2018-02-25 03:16] LABS: CALCIUM 8.6 mg/dL (8.5-10.1); CREATININE 2.3 mg/dL (0.6-1.3); MAGNESIUM 1.9 mg/dL (1.8-2.4); POTASSIUM 5.3 mmol/L (3.5-5.1)
--- NOTE | 2018-02-25 08:11 | NUR ---
ALERT AND ORIENTED. UP WITH 1 ASSIST, WITH WALKER AND GAIT BELT. HAS MOST NONPRODUCTIVE COUGH. LUNGS SOUNDS COARSE AND HAS WHEEZES THROUGHOUT. CONTINUES ON BREATHING TREATMENT. CALL LIGHT WITHIN REACH.
[2018-02-25 08:15] VITALS: BP 139/44
--- NOTE | 2018-02-25 11:10 | NUR ---
YASMANI RECIEVED A CALL FROM YAJAIRA WITH [facility] AND SHE INFORMS THAT THE FACILITY WOULD NEED D/C ORDERS TODAY BY IN ORDER TO ACCEPT THE PATIENT AND OBTAIN MEDS FROM PHARMACY, AND IS NOT ABLE TO ACCEPT THE PATIENT ON TUESDAY. YAJAIRA ALSO INFORMS THAT THE FACILITY IS ABLE TO ACCEPT THE PAITENT ON TUESDAY IF NEEDED. YASMANI INFORMED YAJAIRA THAT THE PATIENT'S DISCHARGE IS BEING HELD D/T LABS. YASMANI WILL REMAIN AVAILABLE TO ASSIST AND FOLLOW NEEDED.
[2018-02-25 16:11] VITALS: BP 136/64
--- NOTE | 2018-02-25 17:37 | NUR ---
PATIENT RESTING IN BED. PATIENT IS UP WITH MIN/MOD ASSIST WITH GAITBELT. PATIENT WAS UP IN CHAIR FOR LUNCH. PATIENT DENIES ANY PAIN. PATIENT HAS CONGESTED COUGH. PATIENT HAS FAIR APPETITE. PATIENT DENIES ANY NEEDS AT THIS TIME. CALL LIGHT WITHIN REACH. WILL CONTINUE TO MONITOR.
[2018-02-25 20:30] VITALS: BP 144/85
--- NOTE | 2018-02-26 05:13 | NUR ---
UP WITH 1 ASSIST GAIT BELT AND WALKER IN ROOM . OCCASSIONALLY HAS STRESS INCONTINENTS. DENIES NEED FOR PAIN OR NAUSEA MEDICATON. CONTINUES TO RECEIVE BREATHING TREATMENTS. HAS MOIST NONPRODUCTIVE COUGH. REMAINS ON O2 AT 1L/C. CALL LIGHT WITHIN REACH. BED ALARM ON.
[2018-02-26 07:45] VITALS: BP 136/60
[2018-02-26 08:50] VITALS: BP 136/60
[2018-02-26 10:03] LABS: CALCIUM 8.7 mg/dL (8.5-10.1); CREATININE 2.2 mg/dL (0.6-1.3); POTASSIUM 4.4 mmol/L (3.5-5.1)
--- NOTE | 2018-02-26 15:10 | NUR ---
PATIENT A&OX4, FORGETFUL AT TIMES. 1L O2 VIA NC, IV RIGHT FOREARM SALINE LOCK. DISCONTINUED, CATHETER FULLY INTACT. UP WITH ASSISTX1 WITH GAITBELT AND WALKER, STEADY GIAT. NO C/O PAIN/N/V. PATIENT DISCHARGED TO IN HOUSE REHAB FACILITY. CALLED AND GAVE REPORT TO BASHIR, ALL QUESTIONS AND CONCERNS ANSWERED. PATIENT LEFT UNIT AT 1510 VAI W/C WITH ALL BELONGINGS, NOTHING LEFT BEHIND. APPROPRIATE AND COOPORATIVE WITH CARE.
[2018-02-26] MEDS ORDERED: MELATONIN5 M1 PO (16:40)
[2018-02-26] MEDS ORDERED: LEVAQUIN 750 M750 MG PO (17:21)
== END 2018-02-26 15:14 | DRG 871 ==
LOC: M.ERS 09:48 → M.ORTHSURG 12:46 → M.TBA-ER 12:46 → M.ORTHSURG 13:20
PROVIDERS: Emergency Medicine Emergency Medical Services; Internal Medicine; ADMIT Internal Medicine
DX: A41.9 Sepsis, unspecified organism (principal); G92 Toxic encephalopathy; J15.9 Unspecified bacterial pneumonia; J44.1 Chronic obstructive pulmonary disease with (acute) exacerbation; J96.11 Chronic respiratory failure with hypoxia; J44.0 Chronic obstructive pulmonary disease with (acute) lower respiratory infection; J20.9 Acute bronchitis, unspecified; I10 Essential (primary) hypertension; M19.90 Unspecified osteoarthritis, unspecified site; G47.33 Obstructive sleep apnea (adult) (pediatric); E11.9 Type 2 diabetes mellitus without complications; G89.29 Other chronic pain; I48.91 Unspecified atrial fibrillation; Z96.651 Presence of right artificial knee joint; Z79.01 Long term (current) use of anticoagulants; Z79.2 Long term (current) use of antibiotics; Z87.891 Personal history of nicotine dependence; Z79.4 Long term (current) use of insulin; Z79.899 Other long term (current) drug therapy; Z88.2 Allergy status to sulfonamides; Z82.49 Family history of ischemic heart disease and other diseases of the circulatory system; Z83.3 Family history of diabetes mellitus

== ENCOUNTER 2018-02-26 14:32 | Inpatient (IN) | payer MEDICARE, OTHER ==
[~2018-02-26] VITALS: Ht 162.6 cm; Wt 92.7 kg
--- NOTE | 2018-02-26 16:33 | NUR ---
PATIENT TO ROOM 333 THIS AFTERNOON, ADMITTING DIAGNOSIS OF ENCEPHALOPATHY SECONDARY TO RECURRENT PNEUMONIA. REPORTS RECENT FALL AT [facility], NON-INJURY. DENIES CURRENT PAIN, REPORTS CHRONIC PAIN TO LEFT SHOULDER AND RIGHT ELBOW. BASELINE HOME FUNCTION IS UP WITH USE OF WALKER AND OXYGEN. EXT ASSIST OF ONE WITH STAND/PIVOT FOR USE OF BSC, BASELINE INCONTINENCE OF BOWEL AND BLADDER, LUNGS COARSE, STRIDOR, WHEEZES, NONPROD COUGH, HISTORY OF A-FIB, IRREG ON AUSC. ADELA DIET WELL, LAST BM THIS AM, BILAT UE BRUISING FROM IV/LAB DRAW, OTHERWISE SKIN IS W/D/I, FAMILY AT BEDSIDE, PATIENT STATED CODE STATUS INTENT IS "DO NOT RECUSSITATE", DOES NOT HAVE ANY SUPPORTING DOCUMENTATION AT THIS TIME. CARE PLAN REVIEWED WITH PATIENT AND FAMILY, NO QUESTIONS VOICED AT THIS TIME, CALL LIGHT IN REACH, BED ALARM ON.
[2018-02-26] MEDS ORDERED: MELATONIN5 M1 PO (16:40)
[2018-02-26] MEDS ORDERED: LEVAQUIN 750 M750 MG PO (17:21)
[2018-02-26 19:30] VITALS: BP 160/61
--- NOTE | 2018-02-27 01:47 | NUR ---
ASSUMED CARE @ 1924-02/26-TUESDAY.AWAKE IN BED W/ HOB UP & O2 CONTINOUS @ 1L/NC. BED ALARM PUT ON @ 1924.COARSE COUGHING & PATIENT REQUESTED PRN PUL TX.CALLED @ 2049 & PUL TX GIVEN TO PATIENT @ 2099.COUGH-RESOLVED AFTER PUL TX.AT 1924-HAD GARGLING NOISE THROAT BUT UNABLE TO CLEAR.AFTER PUL TX-GARGLING SOUND THROAT-ALSO RESOLVED.ON HOURLY ROUNDS.
[2018-02-27 04:15] LABS: HEMATOCRIT 29.2 % (37.0-47.0); HEMOGLOBIN 9.2 gm/dL (12.0-15.0); MCH 28.8 pg (26.0-34.0); MCHC 31.4 g/dL (28.0-37.0); MCV 91.7 fL (80.0-100.0); MPV 10.7 fl. (7.2-11.1); NUCLEATED RBCS 0 /100WBC; PLATELET COUNT* 210 thou/uL (150-400); RBC 3.19 mil/uL (4.20-5.00); RDW-CV 15.6 % (10.5-14.5); WBC 12.7 thou/uL (4.0-11.0)
[2018-02-27 04:57] LABS: CALCIUM 8.8 mg/dL (8.5-10.1); POTASSIUM 5.2 mmol/L (3.5-5.1)
--- NOTE | 2018-02-27 05:38 | NUR ---
SLEEPING SINCE 2199.USED BSC X3.URINE ACCIDENTS X3.PULL UPS PUT ON @ 0440. ASSISTED TO TURN TO RIGHT SIDE @ 0450.REFUSED HS SNACKS.
[2018-02-27 05:46] LABS: ABSOLUTE LYMPHOCYTES 1.8 thou/uL (0.8-5.3); ABSOLUTE MONOCYTES 0.4 thou/uL (0.0-1.2); ABSOLUTE NEUTROPHILS 10.5 thou/uL (1.6-8.1); ANISOCYTOSIS 1+; PLATELET ESTIMATE ADEQUATE; POIKILOCYTOSIS 1+
[2018-02-27 08:00] VITALS: BP 180/69
--- NOTE | 2018-02-27 11:14 | NUR ---
SW met with pt to complete initial assessment, introduce self, and SW role on rehab unit. Pt alert, oriented. Pt lives at home with her dtr and pt reports that her dtr is able to be with her "most of the time". From initial assessment on acute stay, pt was fairly independent prior to hospitalization. Pt has a nebulizer, CPAP, oxygen at night through [employer], and RW, wc, shower chair. Pt says she is current with agency but could not recall name (from previous note, pt is current with [facility]). Pt has history with [facility] and [facility]. Pt goal is to be able to return home at ut. SW to continue to follow as well as follow up with pt dtr Yadira.
--- NOTE | 2018-02-27 13:23 | NUR ---
Nutrition: Pt admitted with encephalopathy, PNA w/ sepsis. Labs: WBC 12.7, alb 3.1, BUN 66, cr 2, BG 249, K+ 5.2. PMHx: DM, COPD, afib. Eating 100% of CHO count diet. Wt: stable at 196#. RX: MVI, fish oil, L. acidophilus, D3, Ca, insulin. Uses CPAP at home. No acute nutrition concerns at this time. Will follow po intake, wt, labs weekly.
--- NOTE | 2018-02-27 17:09 | NUR ---
ASSUMED CARE AT 0730 ALERT ORIENTED, PLEASANT COOPERATIVE. HX OF ENCEPHALOPATHY COPD WEARS O2 AT 1 L/M PER N/C. GETS SOA WITH EXERTION. COUGHS AT INTERVALS NON PRODUCTIVELY. WHEEZES AUDIBLY WITHOUT AUSCULTATION. TAKES MEDS WHOLE WITH WATER 1-2 AT A TIME FEEDS SELF APPETITE GOOD. DENIES PAIN. VOIDS IN TOILET WEARS PULLUPS FOR STRESS INCONTINENCE. PARTICIPATING IN THERAPIES THROUGHOUT THE DAY. RT TX X 2 TODAY. USES CALL LIGHT APPROPRIATELY FOR ASSIST. TO DR FOR MEALS. WILL BE ON LOW ENDURANCE PROTOCOL TOMORROW.
[2018-02-27 19:57] VITALS: BP 104/53
--- NOTE | 2018-02-28 02:28 | NUR ---
ASSUMED CARE @ 1939-02/27-TUESDAY.SITS IN W/C DOING BILLS W/ DAUGHTER.FOUND O2 OFF @ THIS TIME.O2 1L/NC PUT ON.HOB UP IN BED.BED ALARM PUT ON @ 2044.WEARS PULL UPS.BP @ 0800-180/69.BP @ 1956-104/53.HS DOSE CLONIDINE HELD.COARSE COUGHING @ 2151.PRN TESSALON PERLE ONE CAP ORAL GIVEN @ 2151.CALLED FOR RESP.TX & GIVEN @ 2214-FOR GARGLING SOUND THROAT.SLEEPING @ 2229 W/ GARGLING THROAT SOUND RESOLVED.ON HOURLY ROUNDS.PROCESSING TECHNICIAN DOING ODD HOUR ROUNDS.SEE POSITION CHANGE CHARTING.
--- NOTE | 2018-02-28 05:50 | NUR ---
SLEPT LATE @ 2230.REFUSED HS SNACK.HAD COUGHING SPELL @ 0240.BUT NOT TIME YET FOR PRN [place] NULL.WARM TEA GIVEN @ 0250 & DRANK ALL.SLEEPING @ 0316 W/ COUGH RESOLVED.USED BSC X2.STRESS INCONTINENCE X1 @ 0250.PULL UPS CHANGED. SEE POSITION CHANGE CHARTING.
[2018-02-28 08:24] VITALS: BP 163/64
--- NOTE | 2018-02-28 14:38 | NUR ---
PALOMO called and spoke with pt dtr in law Cathy at [phone] in preparation for team conference tomorrow. Cathy said that she did not have any questions except wondering if pt is "just weak from the pnuemonia". SW to update pt and pt family after team conference and SW to continue to follow to assist with safe dc planning.
--- NOTE | 2018-02-28 16:02 | NUR ---
AM ASSESSMENT AND VITAL SIGNS COMPLETED DOCUMENTED. PT HAS WORKED WITH PT, OT AND ST BUT HAS VERY POOR ENDURANCE. PT HAS A FREQUENT LOOSE, NON PRODUCTIVE COUGH AND IS ON OXYGEN AT 1-2 LITERS DEPENDING ON HER ACTIVITY LEVEL. PT ENCOURAGED TO USE THE INCENTIVE SPIROMETER EVERY HOUR WHILE AWAKE. HOURLY ROUNDING AND FALL PRECAUTIONS IN PLACE.
[2018-02-28 20:30] VITALS: BP 94/55
--- NOTE | 2018-03-01 02:37 | NUR ---
ASSUMED CARE @ 1939-02/28-TUESDAY.SITS IN W/C WATCHING TV W/ 02 ON @ 1L/NC. LUNGS-EXP.WHEEZES.HS DOSE CLONIDINE HELD.BP @ 2029-/58.HOB UP WHEN IN BED. BED ALARM PUT ON @ 2099.PRN TESSALON PERLE-ONE PERLE GIVEN @ 2145.COUGH- -RESOLVED.SEE POSITION CHANGE CHARTING.AWAKE @ 0025 W/CONGESTED COUGHS.WARM TEA GIVEN & COUGHING-RESOLVED.WEARS PULL UPS.ON HOURLY ROUNDS.[employer] DOING ODD HOUR ROUNDS.CALLED FOR RESP.TX @ 0030 FOR SOB.SLEEPING NOW @ 0110 & BREATHING BETTER.
--- NOTE | 2018-03-01 05:34 | NUR ---
SLEEPING SINCE 2199.REFUSED HS SNACK.USED BSC X2.STRESS INCONTINENCE X1.
[2018-03-01 08:00] VITALS: BP 157/57
--- NOTE | 2018-03-01 18:40 | NUR ---
AM ASSESSMENT AND VITAL SIGNS COMPLETED DOCUMENTED. PT IS LOW ENDURANCE WITH THERAPY DUE TO COPD. FALL PRECAUTIONS AND HOURLY ROUNDING CONTINUE.
[2018-03-01 20:26] VITALS: BP 111/75
--- NOTE | 2018-03-02 05:24 | NUR ---
ASSUMED PT CARE AT 1930. PT ALERT AND ORIENTED X4, POLITE AND COOPERATIVE WITH CARES. PT ON 2L 02 PER NC. PT AWAKENED SEVERAL TIMES OVERNIGHT WITH HARSH, NON-PRODUCTIVE COUGH. PRN RT TX TWICE THIS SHIFT FOR SHORTNESS OF AIR. TESSALON PERLES ONCE AND HOT TEA SEVERAL TIMES FOR COUGHING. PT ON LOW ENDURANCE THERAPY DUE TO COPD. PT UP TO BSC TO VOID SEVERAL TIMES OVERNIGHT. USES CALL LIGHT APPROPRIATELY. CALL LIGHT AND FREQUENTLY USED ITEMS WITHIN REACH. HOURLY ROUNDING IN PROGRESS, WILL CONTINUE TO MONITOR.
[2018-03-02 08:00] VITALS: BP 159/63
--- NOTE | 2018-03-02 14:10 | NUR ---
PALOMO and Dr Zambrano met with pt to review team conference summary. Plan for pt to remain on rehab unit another week with team to reassess pt length of stay during team conference on next Tuesday. Pt in agreement with plan. SW to continue to follow to assist with safe dc planning.
--- NOTE | 2018-03-02 17:53 | NUR ---
ASSUMMED CARE OF PT AT 0730, PT ALERT AND ORIENTED, TRANSFERS WITH ASSIST OF 1, GB AND WALKER, ON 02 AT 2 L SATING AT 98%, PT HAS HARSH DRY COUGH AT TIMES, MEDICATED X 1 FOR COUGH, PT VOIDS PER COMMODE,WEARS BRIEF, DENIES PAIN,TAKING FOOD AND FLUIDS WELL, PARTICIPATED IN ALL THERAPIES, HOURLY ROUDNING COMPLETED, ASSESSMENT COMPLETED.
[2018-03-02 20:39] VITALS: BP 155/62
--- NOTE | 2018-03-03 05:24 | NUR ---
ASSUMED PT CARE AT 1930. NURSING ASSESSMENT COMPLETED AT START OF SHIFT. PT VOICED NO CONCERNS THIS SHIFT. HIGH FALL PRECAUTIONS IN PLACE. HOURLY ROUNDING COMPLETED. CALL LIGHT WITHIN REACH.
[2018-03-03 08:07] VITALS: BP 154/57
--- NOTE | 2018-03-03 16:09 | NUR ---
ASSUMED CARE AT 0730. ALERT ORIENTED PLEASANT COOPERATIVE. HX OF ENCEPHALOPATHY COPD. WEARS O2 AT 2L/M PER N/C. SOA WITH EXERTION. COUGHS AT INTERVALS HAD CHOKING EPISODE AT LUNCH BUT WAS ABLE TO RECOVER QUICKLY. USES CALL LIGHT APPROPRIATELY FOR ASSIST PARTICIPATING IN THERAPIES. FEEDS SELF WITH MIN SET UP TAKES MEDS WHOLE WITHOUT DIFFICULTY. UP IN RECLINER AFTER THERAPIES COMPLETED. TESSALON PERLES X 1 GIVEN FOR COUGH. UP TO BSC TO VOID THIS AFTERNOON.
[2018-03-03 20:42] VITALS: BP 148/61
--- NOTE | 2018-03-04 05:13 | NUR ---
ASSUMED PT CARE AT 1930. PT ALERT AND ORIENTED X4, POLITE AND COOPERATIVE WITH CARES. HX OF ENCEPHALOPATHY AND COPD. WEARS 2L 02 PER NC. TESSALON PERLES WITH HS MEDS FOR COUGH. PT SLEPT WELL OVERNIGHT. TAKES MEDS WHOLE ONE AT A TIME WITHOUT DIFFICULTY. UP TO BSC TO VOID, STOOL X1 THIS SHIFT. USES CALL LIGHT APPROPRIATELY. CALL LIGHT AND FREQUENTLY USED ITEMS WITHIN REACH. HOURLY ROUNDING IN PROGRESS, WILL CONTINUE TO MONITOR.
[2018-03-04 08:16] VITALS: BP 145/61
--- NOTE | 2018-03-04 17:01 | NUR ---
ASSUMMED CARE OF PT AT 0730, PT ALERT AND ORIENTED, TRANSFERS WITH MIN ASSIST, GB AND WALKER, VOIDS PER COMMODE, PT HAS HARSH NON PRODUCTIVE COUGH, MEDICATED X 1 FOR COUGH, O2 ON AT 2L SATS OF 98%, CXR COMPLETED AND PHYSICIAN NOTIFIED OF RESULTS, PT DENIES PAIN, UP IN CHAIR ALL SHIFT, REPOSTIONED IN CHAIR EVERY 2 HOURS, PARTICIPATED IN ALL THERAPIES, HOURLY ROUNDING COMPLETED, ASSESSMENT COMPLETE, WILL CONTINUE TO MONITOR.
[2018-03-04 20:37] VITALS: BP 156/54
--- NOTE | 2018-03-04 21:00 | NUR ---
SITTING UP IN RECLINER WITH LEGS ELEVATED. DENIES DISCOMFORT. 02 NC AT 2 LITERS. HAS NON PRODUCTIVE COUGH. PRN TESSALON PERLES GIVEN. TOOK MEDICATIONS WHOLE A FEW SMALL ONES AT A TIME AND THE BIG ONES ONE AT A TIME AND FOLLOWED THE PILLS WITH WATER. TOOK 3 ATTEMPTS FOR PATIENT TO GET FROM SITTING TO STANDING POSITION BUT DID SO WITHOUT ASSIST. TRANSFERRED FROM CHAIR TO BEDSIDE COMMODE WITH CGA, GAITBELT, WALKER. DID OWN HYGIENE. NEEDED ASSIST WITH CLOTHING. SHORTNESS OF BREATH WITH EXERTION.
[2018-03-05 05:10] LABS: MCH 29.2 pg (26.0-34.0); MCHC 32.1 g/dL (28.0-37.0); MCV 91.1 fL (80.0-100.0); MPV 10.4 fl. (7.2-11.1); RBC 3.07 mil/uL (4.20-5.00); RDW-CV 15.2 % (10.5-14.5); WBC 15.4 thou/uL (4.0-11.0)
--- NOTE | 2018-03-05 05:34 | NUR ---
RESTED QUIETLY. NO COMPLAINTS VOICED. ASSISTED WITH REPOSITIONING DURING THE NIGHT. HOURLY ROUNDING IN PROGRESS.
[2018-03-05 05:36] LABS: CALCIUM 8.8 mg/dL (8.5-10.1); CREATININE 1.7 mg/dL (0.6-1.3); POTASSIUM 4.5 mmol/L (3.5-5.1)
[2018-03-05 08:21] VITALS: BP 173/60
--- NOTE | 2018-03-05 18:23 | NUR ---
ASSUMMED CARE OF PT AT 0730, PT ALERT AND ORIENTED, PT TRANSFERS WITH ASSIST OF 1, GB WALKER, O2 AT 2L WITH SATS OF 96%. PT BATHED WITH SET UP, GROOMING WITH SET UP, PT DENIES PAIN, TAKING FOOD AND FLUIDS WELL, TO DININGROOM FOR MEALS, HARSH LOOSE COUGH, MEDICATED X 1 PER ORDER, PT REPOSITIONED EVERY 2 HOURS, HOURLY ROUNDING COMPLETED, ASSESSMENT COMPLETE WILL CONTINUE TO MONITOR.
[2018-03-05 19:30] VITALS: BP 184/70
--- NOTE | 2018-03-05 20:15 | NUR ---
SITTING UP IN RECLINER WATCHING TV. 02 NC AT TWO LITERS. REQUIRED LIFTING ASSIST TO GET FROM SITTING TO STANDING. TOOK MEDICATIONS WHOLE ONE AT A TIME WITH WATER. PULL UPS WET BUT VOIDED MORE PER BEDSIDE COMMODE. DID OWN HYGIENE. NEEDS ASSISTANCE WITH PULLING PANTS UP AND DOWN. DENIES PAIN.
--- NOTE | 2018-03-06 04:55 | NUR ---
[place] BROWNING. UP X ONE DURING THE NIGHT TO BEDSIDE COMMODE TO VOID. HOURLY ROUNDING IN PROGRESS.
[2018-03-06 07:35] VITALS: BP 117/52
--- NOTE | 2018-03-06 15:58 | NUR ---
ARRIVED PER WHEELCHAIR TO INFUSION LAB. TRANSFERED SELF TO CART. MADE COMFORTABLE. RISK AND BENIFIT OF PICC REVIEWED. PT VOICED UNDERSTANDING AND AGREED. CONSENT SIGNED. RIGHT UPPER ARM ASSESSED WITH ULTRASOUND. RIGHT BASILIC IDENTIFIED AND NOTED TO BE WIDLEY PATENT. SINGLE LUMAN POWER PICC PLACED PER HOSPTIAL PROTOCOL. GOOD BRISK BLOOD RETURN AND FLUSHES WITH EASE. LINE SECURED. PT IN A-FIB. STAT CHEST X-RAY COMPLETED. AWAITING RESULTS. LINE SECURED.
--- NOTE | 2018-03-06 18:46 | NUR ---
ASSUMED CARE AT 0730. ALERT ORIENTED PLEASANT COOPERATIVE. HX OF ENCEPHALOPATHY AND COPD. TRANSFERS WITH SBA G BELT WALKER UP TO RECLINER FOR BREAKFAST VOIDS IN BSC BEFORE MEAL. FRESH PULLUP APPLIED AFTER LAMAR CARE FEEDS SELF BREAKFAST APPETITE GOOD TOOK MEDS WITHOUT DIFFICULTY. COUGHING AT INTERVALS TESSALON PERLE GIVEN WITH A.M. MEDS. O2 ON AT 2L/M PER N/C SOA WITH EXERTION. CXR DONE AND DR. RIVERA ORDERED IV ANTIBIOTICS PICC LINE PLACED THIS AFTERNOON. KERON DRESSING HAS BLOOD UNDER IT. FLUSHES WELL. SINGLE LUMEN PICC. PARTICIPATING IN THERAPIES THROUGHOUT THE DAY. TOOK SUPPER IN HER ROOM AFTER PICC PLACED. DAUGHTER VISITED WITH SARAY LUCIANO THIS AFTERNOON.
[2018-03-06 19:30] VITALS: BP 162/59
--- NOTE | 2018-03-06 20:45 | NUR ---
IN [place] IN BED WATCHING TV. 02 NASAL CANNULA AT 2 LITERS. WHEEZES AUSCULATED IN UPPER LOBES. LEIGH ANN ALSO COARSE. RESPIRATORY NOTIFIED OF PATIENT'S REQUEST FOR A PRN BREATHING TREATMENT. GAVE PRN TESSALON PERLE PER PATIENT'S REQUEST. TOOK MEDICATION WHOLE ONE AT A TIME WITH WATER.
[2018-03-07 03:51] LABS: HEMATOCRIT 27.5 % (37.0-47.0); HEMOGLOBIN 8.8 gm/dL (12.0-15.0); MCH 29.3 pg (26.0-34.0); MCHC 32.1 g/dL (28.0-37.0); MCV 91.1 fL (80.0-100.0); MPV 10.2 fl. (7.2-11.1); RBC 3.01 mil/uL (4.20-5.00); RDW-CV 15.6 % (10.5-14.5); WBC 17.2 thou/uL (4.0-11.0)
[2018-03-07 04:10] LABS: CALCIUM 8.2 mg/dL (8.5-10.1); CREATININE 1.8 mg/dL (0.6-1.3); MAGNESIUM 1.7 mg/dL (1.8-2.4); POTASSIUM 4.1 mmol/L (3.5-5.1)
--- NOTE | 2018-03-07 06:07 | NUR ---
UP X TWO DURING THE NIGHT TO THE BEDSIDE COMMODE TO VOID. NO COMPLAINTS VOICED. SWAB FOR MRSA DONE PER ORDER AND SENT TO LAB. GOOD BLOOD RETURN FROM SINGLE LUMEN UPPER RIGHT ARM PICC. HOURLY ROUNDING IN PROGRESS.
[2018-03-07 08:33] VITALS: BP 148/55
--- NOTE | 2018-03-07 15:35 | NUR ---
PALOMO called and spoke with pt dtr in [facility] in preparation for team conference tomorrow. Pt dtr in law said she would just like to know if pt has made any improvements over the past week. PALOMO explained that SW will be able to follow up with pt dtr in law after team conference and discuss pt progress in therapies. SW to continue to follow to assist with safe dc planning.
--- NOTE | 2018-03-07 17:13 | NUR ---
GRACIELA HOUSER HAS REVIEWED AND AGREES WITH STUDENT NURSES CHARTING.
--- NOTE | 2018-03-07 18:20 | NUR ---
PT REMAINS A&OX4. VITAL SIGNS STABLE WITH 2L OF O2. NO COMPLAINTS OF PAIN OR NAUSEA. SINGLE LUMEN PICC IS PATENT IN RUE INFUSING ANTIBIOTICS PER DR ORDERS. WHEEZES ASCULTATED IN UPPER LOBES, COARSE IN LOWER LOBES. TRANSFERS X1 WITH GB AND WALKER. PARTICIPATED IN THERAPIES THROUGHOUT SHIFT. HOURLY ROUNDING MAINTAINED. CALL LIGHT WITHIN REACH. WILL CONTINUE TO MONITOR.
[2018-03-07 19:30] VITALS: BP 154/56
--- NOTE | 2018-03-08 01:56 | NUR ---
ASSUMED CARE @ 1937-03/07-.SITS IN RECLINER W/ LE'S UP & O2 CONTINOUS @ 2L/NC.WATCHING TV @ THIS TIME.CHAIR ALARM PUT ON @ 1937.PICC LINE HAS GOOD BLOOD RETURN @ 1954 & FLUSHED WELL.EDEMA-+1 PITTING LEGS.+2 PITTING-FEET & ANKLES.ASSISTED BY STAINED GLASS PAINTER TO BED @ 2109.HOB UP.BED ALARM PUT ON @ 2119.FOOT OF BED UP.HEELS OFF BED ALSO @ 2199.ON HOURLY ROUNDS.STAINED GLASS PAINTER DOING ODD HOUR ROUNDS.
[2018-03-08 05:12] LABS: HEMATOCRIT 27.2 % (37.0-47.0); HEMOGLOBIN 8.9 gm/dL (12.0-15.0); MCH 29.5 pg (26.0-34.0); MCHC 32.7 g/dL (28.0-37.0); MCV 90.2 fL (80.0-100.0); MPV 9.9 fl. (7.2-11.1); RBC 3.01 mil/uL (4.20-5.00); RDW-CV 15.2 % (10.5-14.5); WBC 18.7 thou/uL (4.0-11.0)
--- NOTE | 2018-03-08 05:26 | NUR ---
AWAKE @ INTERVALS DURING NIGHT.BRP X1 & USED BSC X1 @ 0200.HAD SMALL BM @ 0200.REFUSED HS SNACK.SEE POSITION CHANGE CHARTING.PICC LINE DRESSING CHANGED @ 0500 AFTER BLOOD DRAWN FOR LAB WORKS TODAY-03/08-TUE.
[2018-03-08 05:35] LABS: ALBUMIN 2.5 g/dL (3.4-5.0); CALCIUM 8.2 mg/dL (8.5-10.1); CREATININE 1.6 mg/dL (0.6-1.3); MAGNESIUM 1.8 mg/dL (1.8-2.4); POTASSIUM 4.1 mmol/L (3.5-5.1); TOTAL BILIRUBIN 0.5 mg/dL (<0.1-1.0); TOTAL PROTEIN 5.4 g/dL (6.4-8.2)
[2018-03-08 08:00] VITALS: BP 144/64
--- NOTE | 2018-03-08 16:59 | NUR ---
Plan for team to reassess pt length of stay during team conference next Tuesday with tentative dc on Thursday 03/15 to home with dtr and HH services. SW to continue to follow to assist with safe dc planning.
--- NOTE | 2018-03-08 17:33 | NUR ---
AM ASSESSMENT AND VITAL SIGNS COMPLETED DOCUMENTED. PT HAS BEEN PLEASANT AND COOPERATIVE, CONTINUES TO WORK TOWARD DISCHARGE GOALS. OXYGEN HAS BEEN WEANED OFF TODAY AND IV ABX CONTINUE ORDERED. FALL PRECAUTIONS AND HOURLY ROUNDING CONTINUE. NO ACUTE DISSTRESS.
[2018-03-08 19:50] VITALS: BP 168/55
--- NOTE | 2018-03-08 20:00 | NUR ---
SITTING UP IN RECLINER WATCHING TV. DENIES DISCOMFORT. GOOD BLOOD RETURN FROM LEFT UPPER SINGLE LUMEN PICC. AMBULATED FROM THE RECLINER TO THE BATHROOM WITH SBA, GAITBELT, WALKER. DID OWN HYGIENE. NEEDED ASSIST WITH PULLING UP HER PULL UPS. NEEDED ASSIST TO GET FROM SITTING TO STANDING. TOOK MEDICATIONS WHOLE ONE AT A TIME WITH WATER. DAUGHTER HERE VISITING WITH PATIENT'S DASCHUND.
--- NOTE | 2018-03-09 06:17 | NUR ---
UP X ONE DURING THE NIGHT TO THE BEDSIDE COMMODE. VOIDED AND HAD A MODERATE SOFT UNFORMED BM. TOLERATED SLEEPING WITHOUT ANY OXYGEN. HOURLY ROUNDING IN PROGRESS.
[2018-03-09 08:27] VITALS: BP 163/58
--- NOTE | 2018-03-09 14:59 | NUR ---
PT CARE ASSUMED THIS AM AT 0730, ASSESSMENT AND VITAL SIGNS COMPLETED DOCUMENTED. PT IS ON LOW ENDURANCE THERAPY SCHEDULE AND TOLERATES IT WELL. PT IS AMBULATING 10-15 FEET WITH A WALKER AND MIN ASSIST. O2 SAT REMAINS ABOVE 90% WITH ACTIVITY. PT CONTINUES TO PROGRESS TOWARD DISCHARGE GOALS. FALL PRECAUTIONS AND HOURLY ROUNDING CONTINUE.
[2018-03-09 20:00] VITALS: BP 168/69
--- NOTE | 2018-03-10 05:09 | NUR ---
ASSUMED PT CARE AT 1930. PT ALREADY IN BED AT SHIFT CHANGE. DENIES PAIN. PT USED BSC TWICE OVERNIGHT. UP WITH SBA AND GAITBELT, NEEDS ASSIST TO STAND. NEEDS HELP WITH PULLUPS. TOOK MEDICATIONS ONE AT A TIME WITH WATER. SINGLE LUMEN PICC TO LEFT UPPER ARM FLUSHES EASILY AND GIVES GOOD BLOOD RETURN. LABS OBTAINED. PT REQUESTING TO WEAR 02 AT 2L PER NC, STATING THAT'S WHAT SHE WEARS AT HOME AT NIGHT. PRN BREATHING TREATMENT PER PT REQUEST. CALL LIGHT AND FREQUENTLY USED ITEMS WITHIN REACH. BED ALARM ON FOR SAFETY. HOURLY ROUNDING IN PROGRESS, WILL CONTINUE TO MONITOR.
[2018-03-10 08:00] VITALS: BP 170/60
--- NOTE | 2018-03-10 11:40 | NUR ---
SW tried to contact pt family, pt dtr in [facility] and pt dtr Yadira, no answer from either phone and no voice mail available. Plan for team to reteam with possible dc Thursday 03/15. [facility] services to resume at dc. SW was going to discuss with pt family the pt progress in therapies and what to expect at dc. SW to continue to follow to assist with safe dc planning.
--- NOTE | 2018-03-10 16:14 | NUR ---
ASSUMMED CARE OF PT AT 0730, PT ALERT AND ORIENTED, TRANSFERS WITH ASSIST OF 1, GB WALKER, PT DENIES PAIN, TAKING FOOD AND FLUIDS WELL, HARSH NON PRODUCTIVE COUGH NOTED AT TIMES, O2 ON AT NIGHT BUT REMOVED THIS AM, PT SATS 94-96% ON RA, PICC TO RIGHT ARM PATENT, NO LOOSE STOOLS THIS SHIFT, ORDER FOR C-DIFF DC'D PER PROTOCAL, PARTICIPATED IN ALL THERAPIES, HOURLY ROUNDING COMPLETED, HAD LUNCH IN DININGROOM, VOIDS PER TOILET, ASSESSMENT COMPLETE, WILL CONTINUE TO MONITOR,
[2018-03-10 20:09] VITALS: BP 165/70
[2018-03-10 22:08] LABS: GLYCOHEMOGLOBIN (HGB A1C) 7.7 % (4.8-5.6)
--- NOTE | 2018-03-11 05:22 | NUR ---
ASSUMED PT CARE AT 1930. PT ALREADY IN BED AT SHIFT CHANGE. DENIES PAIN. TAKES PILLS WHOLE WITH WATER ONE AT A TIME. SINGLE LUMEN PICC TO LEFT UPPER ARM FLUSHES EASILY AND GIVES GOOD BLOOD RETURN. IV ABX INFUSED PER OCT. PT ON 2L 02 PER NC OVERNIGHT. OCCASIONAL NON-PRODUCTIVE COUGH. UP TO BSC WITH SBA AND GAIT BELT. PT NEEDS ASSIST WITH PERICARES AND PULLUPS. STOOL X2 THIS SHIFT. CALL LIGHT AND FREQUENTLY USED ITEMS WITHIN REACH. HOURLY ROUNDING IN PROGRESS, WILL CONTINUE TO MONITOR.
[2018-03-11 08:00] VITALS: BP 162/60
--- NOTE | 2018-03-11 15:47 | NUR ---
PT CARE ASSUMED AT 0730, ASSESSMENT AND VITAL SIGNS COMPLETED DOCUMENTED. PT HAS BEEN PLEASANT AND COOPERATIVE, COMPLETED ALL THERAPY SESSIONS AND TOLERATED WELL. FALL PRECAUTIONS AND HOURLY ROUNDING IN PLACE. PT RESTING IN BED THIS AFTERNOON.
[2018-03-11 19:47] VITALS: BP 168/53
--- NOTE | 2018-03-11 20:08 | CON ---
[facility] [address] [place] [address] CONSULTATION Name: AZEB ALARCON Room: [address] IN [place]#: [id number] Admission: 02/26/18 Attend Phys: Andreia Zambrano DO Discharge: Date of : 35 Report #: [id number] THIS REPORT FOR: //name// CC: Andreia Gray DATE OF SERVICE: 03/09/2018 CONSULTATION: Infectious diseases. HISTORY OF PRESENT ILLNESS: Ms Catarina Alarcon is an 82-year-old white female who was admitted to [facility] 02/26/2018 because of increased dyspnea and weakness. She has some confusion and was unsteady on her feet. She was being treated for outpatient community-acquired pneumonia with Levaquin. In the hospital, the x-ray was considered to have atelectasis and COPD, but not an obvious infiltrate. The Levaquin was changed to IV antibiotic therapy. She was followed. The radiographs did show more atelectasis or infiltrates. The patient continued to be weak, so she was transferred for acute rehab. Here in rehab, the patient continued to have leukocytosis and more distinct infiltrates on chest x-ray in spite of being on Levaquin. On 03/06/2018, the antibiotics were changed to vancomycin plus Rocephin. The white count continued to go up and now the radiologist is interpreting the mid left lung is having a definitive infiltrate. In this setting, Infectious Disease consultation was requested. PAST MEDICAL HISTORY: Significant for COPD associated with tobacco use, atrial fibrillation, stroke, diabetes, hyperlipidemia, anxiety, depression, gout, chronic back pain. ALLERGIES: THE PATIENT HAS A HISTORY OF SULFA ALLERGY. MEDICATION RECONCILIATION: Current medication list is as follows: The patient is on prednisone 40 mg daily, vancomycin 500 mg b.i.d., Rocephin 1 g daily, amlodipine 10 mg daily, sliding scale insulin, glucose, glucagon, lactobacillus 1 tablet daily, multivitamins with minerals daily, fish oil daily, calcium carbonate supplement daily, cholecalciferol 1000 units p.o. daily, citalopram 30 mg daily, allopurinol 100 mg daily, budesonide 0.5 mg inhalation daily, pantoprazole 40 mg p.o. daily, montelukast 10 mg at bedtime, guaifenesin 600 mg b.i.d., clonidine 0.1 mg at bedtime., apixaban 2.5 mg p.o. b.i.d., atorvastatin 20 mg daily, docusate 100 mg b.i.d., melatonin 10 mg at bedtime p.r.n., DuoNeb inhaler 3 mL inhalation q.i.d., hydrocodone 5/325 one p.o. q.i.d. p.r.n., benzonatate 100 mg t.i.d., zolpidem 5 mg at bedtime daily, Maalox p.r.n., bisacodyl 10 mg CO daily p.r.n., Tylenol 325-650 mg q. 4 h. p.r.n. pain. FAMILY HISTORY: Noncontributory. [facility] [address] [place] [address] CONSULTATION Name: AZEB ALARCON Room: [address] IN [place]..#: [id number] Admission: 02/26/18 Attend Phys: Andreia Dela CruzBetty Juan Manuel Discharge: Date of : 35 Report #: [id number] SOCIAL HISTORY: The patient is . She lives with her daughter who does not work. Her other child last year from cancer. The patient did smoke cigarettes about a pack per day and quit 1 year ago. No history of significant alcohol use. REVIEW OF SYSTEMS: The patient says that she feels weak, but otherwise okay. She denies fevers, chills, sweats. She denies any malaise. She has weakness and difficulty walking. The patient denies headache, sinus congestion, sore throat, trouble swallowing. The patient has a cough, but is unable to produce any sputum. She says she is more short of breath than baseline, but notes that she has been taken off supplemental oxygen even at night. She denies any chest pain. She denies any angina, syncope, palpitations. GASTROINTESTINAL: The patient denies nausea, vomiting. She is having increasing bowel movements, but she does not characterize it as diarrhea. She denies any abdominal pain. GENITOURINARY: The patient notes incontinence of bowel and bladder. EXTREMITIES: No complaints. PHYSICAL EXAMINATION: GENERAL: The patient appears stated age, alert, oriented, comfortable, not in any distress. VITAL SIGNS: Show the patient has been afebrile throughout this hospitalization. SKIN: Pale and sallow, but without rash, lesions, wounds nor exanthem. PICC LINE: Right arm appears unremarkable. ENT: Negative. The patient is mentally awake, alert, appropriate, able to carry on a meaningful conversation. NECK: Supple. HEART: Sounds S1, S2. Irregular rhythm. CHEST: Breath sounds are coarse. The patient has what sounds like a productive cough, but said she could not raise up any sputum. ABDOMEN: Belly is obese, soft, nontender. Multiple ecchymoses, probably from enoxaparin earlier. The bowel sounds were not heard. EXTREMITIES: Show 1+ edema in the right leg, 2+ in the left. No wounds. LABORATORY DATA: White count is at a new high of 18.7, hemoglobin 8.9, hematocrit 27.2%, platelets 200,000. Electrolytes: Sodium 143, potassium 4.1, chloride 109, bicarbonate 27, BUN has gone from 70-47, creatinine has gone from 2.5-1.6. Liver function tests are normal. Chest x-ray now shows left lobe infiltrate. Multiple blood cultures are negative. There are no sputum nor urine cultures. ASSESSMENT AND PLAN: In summary, the patient [place] [address] CONSULTATION Name: AZEB ALARCON Room: [address] IN [facility]#: [id number] Admission: 02/26/18 Attend Phys: Andreia Zambrano, DO Discharge: Date of : 35 Report #: [id number] presumed pneumonia. In spite of that, she continues to be very weak, has a rising white count and decreasing strength. She continues to have a productive sounding cough. I concur with broader spectrum antibiotic therapy for patient who now is well colonized with nosocomial clay after being in the hospital for 10 days. I recommend vancomycin plus cefepime. Pharmacy is helping with vancomycin dosing. I will discontinue the Levaquin as patient has been on this now for almost 2 weeks. I would like to try to obtain sputum for culture. We can check urinary antigens for pneumococcus and legionella. With the abnormal stool and the prolonged antibiotics, we will check a C. difficile. I would like to check a BNP and TSH to see if there are other explanations for her dyspnea and weakness. We will want to do a followup chest x-ray, CBC and BMP in a few days. I appreciate the opportunity of input in the care of this complex patient. Thank you for requesting infectious disease consultation. <ELECTRONICALLY SIGNED> By: Gallo Braden MD 03/11/182007 [id number] Braden MD /nt
[2018-03-12 03:45] LABS: HEMATOCRIT 27.2 % (37.0-47.0); HEMOGLOBIN 8.7 gm/dL (12.0-15.0); MCH 28.9 pg (26.0-34.0); MCHC 31.9 g/dL (28.0-37.0); MCV 90.7 fL (80.0-100.0); MPV 9.8 fl. (7.2-11.1); NUCLEATED RBCS 0 /100WBC; PLATELET COUNT* 189 thou/uL (150-400); RDW-CV 15.7 % (10.5-14.5); WBC 18.3 thou/uL (4.0-11.0)
[2018-03-12 04:41] LABS: CALCIUM 8.3 mg/dL (8.5-10.1); CREATININE 1.3 mg/dL (0.6-1.3); POTASSIUM 4.3 mmol/L (3.5-5.1)
--- NOTE | 2018-03-12 05:57 | NUR ---
ASSUMED PT CARE AT 1930. PT SITTING UP IN RECLINER VISITING WITH FAMILY. DENIES PAIN. TAKES PILLS WHOLE WITH WATER ONE AT A TIME. SINGLE LUMEN PICC TO RIGHT UPPER ARM, IV ABX INFUSED PER OCT. PT ON 2L 02 PER NC OVERNIGHT. NO COUGH NOTED. UP TO BATHROOM X1 TO VOID WITH SBA, GAIT BELT AND WALKER. PT NEEDS ASSIST WITH PERICARES AND PULLUPS. NO STOOL THIS SHIFT. CALL LIGHT AND FREQUENTLY USED ITEMS WTIHIN REACH. HOURLY ROUNDING IN PROGRESS, WILL CONTINUE TO MONITOR.
[2018-03-12 06:40] LABS: ABSOLUTE LYMPHOCYTES 0.2 thou/uL (0.8-5.3); ABSOLUTE MONOCYTES 0.7 thou/uL (0.0-1.2); ABSOLUTE NEUTROPHILS 17.4 thou/uL (1.6-8.1)
[2018-03-12 06:42] LABS: PLATELET ESTIMATE ADEQUATE
[2018-03-12 06:43] LABS: HYPOCHROMASIA 1+
[2018-03-12 08:00] VITALS: BP 171/73
--- NOTE | 2018-03-12 18:44 | NUR ---
AM ASSESSMENT AND VITAL SIGNS COMPLETED DOCUMENTED. PT CONTINUES TO WORK TOWARD DISCHARGE GOALS. HOURLY ROUNDING AND FALL PRECAUTIONS IN PLACE.
[2018-03-12 20:00] VITALS: BP 160/60
--- NOTE | 2018-03-13 05:15 | NUR ---
ASSUMED CARES AT 1920. ALERT AND ORIENTED. PLEASANT. DENIED ANY PAIN. LUNGS COURSE. O2 2L NC OVERNIGHT. IV SL PICC KERON. SHE IS MIN ASSIST WITH GAIT BELT AND PLATFORM WALKER. UP TO BATHROOM. CAN GET SOA WITH EXERTION. WEARS PULLUPS FOR STRESS INCONTINENCE. SLEPT OFF AND ON. CALL LIGHT IN REACH AND BED ALARM ON.
[2018-03-13 08:00] VITALS: BP 146/57
--- NOTE | 2018-03-13 10:00 | NUR ---
SW called and spoke with pt dtr in [facility] to discuss safe dc planning and for pt possibly to dc on Thursday 03/15 after team reassesses pt length of stay. Pt dtr in law in agreement with plan and did not have any questions or concerns at this time. SW to continue to follow to assist with finalizing safe dc plan. SW to arrange resumption of care with [facility] at dc.
--- NOTE | 2018-03-13 16:22 | NUR ---
ASSUMMED CARE OF PT AT 0730, PT ALERT AND ORIENTED, TRANSFERS WITH SBA/MIN ASSIST GB WALKER, PICC LINE INTACT TO UPPER RIGHT ARM, VOIDS PER TOILET, INCONTINENT OF SMALL AMOUNT OF URINE X 1, WEARS BRIEF, DENIES PAIN, CXR COMPLETED, PT HAS COARSE LUNGS, OCCASIONAL HARSH COUGH, PARTICIPATED IN ALL THERAPIES, HOURLY ROUNDING COMPLETED, ASSESSMENT COMPLETE, WILL CONTINUE TO MONITOR.
[2018-03-13 20:45] VITALS: BP 163/56
--- NOTE | 2018-03-14 05:15 | NUR ---
ASSUMED PT CARE AT 1930. PT SITTING UP IN RECLINER WATCHING TELEVISION. ALERT AND ORIENTED X4, POLITE AND COOPERATIVE WITH CARES. DENIES PAIN. PICC TO RIGHT UPPER ARM, ABX INFUSED PER OCT. UP WITH MIN ASSIST, GAIT BELT AND PLATFORM WALKER TO BATHROOM TO VOID. WEARS PULLUPS FOR STRESS INCONTINENCE. PRN BREATHING TREATMENT PER PT REQUEST. OCCASIONAL HARSH PRODUCTIVE COUGH. 2L 02 PER NC OVERNIGHT. SLEPT WELL. USES CALL LIGHT APPROPRIATELY. CALL LIGHT AND FREQUENTLY USED ITEMS WITHIN REACH. HOURLY ROUNDING IN PROGRESS, WILL CONTINUE TO MONITOR.
[2018-03-14 08:00] VITALS: BP 137/69
[2018-03-14 14:15] LABS: URINE BILIRUBIN NEGATIVE (Negative); URINE BLOOD 1+ (Negative); URINE CLARITY CLEAR; URINE COLOR YELLOW; URINE GLUCOSE-RANDOM NEGATIVE (Negative); URINE KETONES NEGATIVE (Negative); URINE LEUKOCYTES-REFLEX TRACE (Negative); URINE NITRITE-REFLEX NEGATIVE (Negative); URINE PROTEIN 2+ (Negative); URINE UROBILINOGEN 0.2 E.U./dl (0.2-1.0)
[2018-03-14 14:47] LABS: BACTERIA-REFLEX 1-9 Few /HPF (None Seen); HYALINE CASTS 4-10 Moderate /LPF (None Seen); SQUAMOUS 4-10 Moderate /LPF (0-3); URINE RBC 3-10 Few /HPF (0-2); URINE WBC-REFLEX 0-5 Rare /HPF (0-5)
[2018-03-14 14:48] LABS: CRYSTALS None Seen /LPF (None Seen); YEAST-REFLEX Present (None Seen)
--- NOTE | 2018-03-14 18:21 | NUR ---
ASSUMMED CARE OF PT AT 0730, PT ALERT AND ORIENTED, PT TRANSFERS WITH SBA GB WALKER, PT HAS LOOSE COUGH BUT UNABLE TO BRING UP SPUTUM, PT AWARE OF NEED FOR SPUTUM SPECIMEN, CUP AT BEDSIDE, URINE SAMPLE OBTAINED AND SENT TO LAB, PT HAD LARGE INCONTINENT LOOSE STOOL X 1 THIS SHIFT, PT VOIDS PER TOILET, WEARS BRIEF AND HAS SOME URINARY INCONTINENCE, PT DENIES PAIN, TAKING FOOD AND FLUIDS WELL, OS SATS 92% ON RA, AMBULATES TO DININGROOM FOR MEALS, PARTICIPATED IN ALL THERAPIES, HOURLY ROUNDING COMPLETED, ASSESSMENT COMPLETE, WILL CONTINUE TO MONITOR.
[2018-03-14 19:50] VITALS: BP 166/55
--- NOTE | 2018-03-15 05:22 | NUR ---
ASSUMED PT CARE AT 1930. PT ALERT AND ORIENTED X4, POLITE AND COOPERATIVE WITH CARES. DENIES PAIN. PICC TO RIGHT UPPER ARM, ABX INFUSED PER ORDERS. UP WITH MIN ASSIST, GAIT BELT AND PLATF ORM WALKER TO BATHROOM TO VOID. WEARS BRIEF. INCONTIENT OF BLADDER ONCE THIS SHIFT. NO STOOL THIS SHIFT. OCCASIONAL HARSH COUGH, NO SPUTUM SPECIMEN OBTAINED. 2L 02 PER NC OVERNIGHT. PT SLEPT WELL OVERNIGHT. CALL LIGHT AND FREQUENTLY USED ITEMS WITHIN REACH. BED ALARM ON FOR SAFETY. HOURLY ROUNDING IN PROGRESS, WILL CONTINUE TO MONITOR.
[2018-03-15 08:11] VITALS: BP 167/74
--- NOTE | 2018-03-15 14:36 | NUR ---
PALOMO and Dr Zambrano met with pt to review team conference summary and plan for pt to remain on rehab unit a couple more days due to medical reasons of switching to oral abx soon and to ensure stability prior to dc home on Tuesday. PALOMO discussed a platform attachment for RW will be ordered and provided as well as HH services to be arranged. Pt in agreement with plan. PALOMO called and spoke with pt dtr in law Cathy and informed of the dc plans and Cathy will relay message to pt dtr Yadira as well. PALOMO to continue to follow to assist with safe dc planning.
--- NOTE | 2018-03-15 17:43 | NUR ---
ASSUMED CARE AT 0730 PATIENT ALERT/ORIENTED, NO COMPLAINTS OF PAIN THIS SHIFT, UP WITH ASSIST OF ONE WITH GAIT BELT AND WALKER, PARTICIPATED IN ALL THERAPIES TODAY, TO DINING ROOM FOR MEALS, BED/CHAIR ALARMS IN PLACE, CALL LIGHT IN REACH, HOURLY ROUNDING COMPLETED. IV ANTIBIOTICS INFUSING TO RIGHT PICC LINE WITH NO DIFFICULTIES. TO BE DISCHARGE TO HOME ON Tuesday03/17/18
[2018-03-15 19:30] VITALS: BP 171/56
--- NOTE | 2018-03-16 01:38 | NUR ---
ASSUMED CARE @ -TUE.AWAKE IN RECLINER W/ LE'S UP.WATCHING TV.PICCLINE HAS GOOD BLOOD RETURN @ 1957.ASSISTED TO BED @ 2049.HOB UP.HEELS OFF BED. EDEMA-+2 PITTING LEGS,FEET & ANKLES.BED ALARM PUT ON @ 2049.O2 ON @ 2/L NC @ 2049.AWAKENED ONLY TO TURN.ON HOURLY ROUNDS.OVERLAY PLASTICIAN DOING ODD HOUR ROUNDS.
--- NOTE | 2018-03-16 05:40 | NUR ---
REFUSED HS SNACK.SLEEPING SINCE -03/16-TUESDAY.BRP W/ ASSIST X1.FOR CHEST X RAY 03/17 & FOR DISCHARGE 03/17-TUESDAY.
[2018-03-16 07:35] LABS: HEMATOCRIT 28.8 % (37.0-47.0); HEMOGLOBIN 9.2 gm/dL (12.0-15.0); MCH 28.8 pg (26.0-34.0); MCV 90.1 fL (80.0-100.0); MPV 9.6 fl. (7.2-11.1); RBC 3.19 mil/uL (4.20-5.00); RDW-CV 16.3 % (10.5-14.5); WBC 26.4 thou/uL (4.0-11.0)
[2018-03-16 07:45] LABS: CALCIUM 8.7 mg/dL (8.5-10.1); CREATININE 1.3 mg/dL (0.6-1.3); MAGNESIUM 1.9 mg/dL (1.8-2.4); POTASSIUM 3.8 mmol/L (3.5-5.1)
[2018-03-16 08:00] VITALS: BP 177/59
--- NOTE | 2018-03-16 12:46 | H ---
[place] [address] HISTORY AND PHYSICAL Name: AZEB ALARCON Room: [address] IN [facility]#: [id number] Admission: 02/26/18 Attend Phys: Andreia Zambrano DO Discharge: Date of : 35 Report #: [id number] THIS REPORT FOR: //name// CC: Andreia Gray DATE OF SERVICE: 02/26/2018 HISTORY OF PRESENT ILLNESS: This is an 82-year-old female, admitted to inpatient rehabilitation to facilitate safe discharge home, status post acute diagnosis of debility with alterations in activities of daily living, admitted through the Emergency Department with worsening shortness of breath, generalized weakness, previously independent to modified independent with activities of daily living, currently minimum to moderate assistance of 1-2 depending on therapy, activity and time of day. She is having difficulty toileting, this is not her baseline. She has been on antibiotics and a steroid taper. Weakness has been worsening over the last 2-3 days, more confused from her baseline. No significant changes since the preadmission screening. Estimated length of stay is 14-16 days with discharge disposition to the home setting where she has an accessible home and supportive family. She has multiple medical comorbidities requiring acute daily medical care. PAST MEDICAL HISTORY: History of fall, altered mental status, closed head injury, COPD exacerbation, CVA, dyspnea with respiratory abnormalities, fall, fracture of the right olecranon process, laceration, pneumonia, respiratory distress, shortness of breath, urinary tract infection. Wheezing. ALLERGIES: SULFA. Vital signs, laboratories and diagnostics have all been reviewed. MEDICATIONS: Reviewed, reconciled and are available in the MAR. FAMILY HISTORY: Heart disease and diabetes. SOCIAL HISTORY: No tobacco, alcohol or illicit drug use. REVIEW OF SYSTEMS: A 14-point review of systems is done and is negative except as mentioned in HPI, specifically no fever, chest pain, shortness of breath, abdominal pain or distention, change in bowel or change in bladder. PHYSICAL EXAMINATION: GENERAL: Alert, oriented, no apparent distress. VITAL SIGNS: Reviewed and are stable. HEENT: Head atraumatic, normocephalic. Pupils equal, round, reactive. ABDOMEN: Soft, nontender, [place] [address] HISTORY AND PHYSICAL Name: AZEB ALARCON Alex Room: [address]#: [id number] Admission: 02/26/18 Attend Phys: Andreia Zambrano DO Discharge: Date of : 35 Report #: [id number] NEUROLOGIC: Cranial nerves 2 through 12 are grossly intact. No focal neuro deficits, 5/5 strength in the bilateral upper and lower extremities. SKIN: Warm and dry. No rashes or lesions noted. ASSESSMENT: 1. Acute debility. 2. Toxic encephalopathy. 3. Alterations in activities of daily living from previously modified independent to independent level of care. 4. Acute bacterial bronchitis with chronic hypoxic respiratory failure. 5. Chronic obstructive pulmonary disease with exacerbation. 6. Diabetes. 7. Atrial fibrillation. PLAN: 1. Recommend admission to inpatient rehabilitation to facilitate safe discharge home. 2. PT, OT, speech, language, case management, nursing and HIMS to make evaluations and recommendations. 3. Plan of care is pending. 4. We will team her weekly and make changes to plan of care. The remainder of issues can be noted from her admission paperwork. <ELECTRONICALLY SIGNED> By: Andreia Zambrano DO 03/16/18 1246 1555 [id number] Zambrano DO /nt
--- NOTE | 2018-03-16 16:15 | NUR ---
SW ordered platform for rolling walker and discussed with PT that platform could be issued as approved and provided through [employer]. SW to finalize dc plan and fax orders and info to [facility] at nm. Pt to dc home tomorrow, Tuesday with pt dtr.
--- NOTE | 2018-03-16 17:53 | NUR ---
ASSUMED CARE AT 0730 PATIENT ALERT/ORIENTED, NO COMPLAINTS OF PAIN THIS SHIFT, PARTICIPATED IN ALL THERAPIES TODAY, TO DINING ROOM FOR MEALS, BED/CHAIR ALARMS IN PLACE, CALL LIGHT IN REACH, HOURLY ROUNDING COMPLETED.
[2018-03-16 19:45] VITALS: BP 121/64
--- NOTE | 2018-03-17 01:53 | NUR ---
ASSUMED CARE @ 1919-03/16-.SITS IN RECLINER WATCHING TV.BRP W/ ASSIST #1 @ 1924.SBA FOR TOILETING.WEARS PULL UPS.ASSISTED TO BED @ 1929.HOB UP.HEELS OFF BED & FOOT OF BED ELEVATED.EDEMA-+2 PITTING LEGS,FEET & ANKLES.BED ALARM PUT ON @ 1929.PICC LINE HAS BLOOD RETURN @ 1949.ON HOURLY ROUNDS.
--- NOTE | 2018-03-17 05:34 | NUR ---
SLEEPING SINCE 2299.INCREASED SOA & PRN RESP.TX GIVEN @ 2124.BRP W/ ASSIST X1 @ 1924.INC.URINE X1 IN PULL UPS @ 1924.PULL UPS CHANGED.TOOK ALL ONE PACKAGE FROY CRACKERS W/ APPLE JUICE 120 ML HS SNACKS.FOR CHEST X RAY & FOR DISCHARGE TODAY-03/17-TUESDAY.
[2018-03-17 08:00] VITALS: BP 182/64
--- NOTE | 2018-03-17 08:07 | NUR ---
JOELP W/ ASSIST #2 @ 0620.INC URINE ALREADY.WEARS PULL UPS BUT DRIBBLING ON FLOOR ON WAY TO TOILET.PULL UPS CHANGED.WEIGHT @ 0620-204.3.LAST WEIGHT TAKEN-03/10-194 LBS.EDEMA DECREASED FROM +2 TO +1 PITTING LEGS,ANKLES & FEET @ 0620.WILL ASK HIMS IF CAN GIVE LASIX THIS AM.
[2018-03-17] MEDS ORDERED: DIFLUCAN200 MG PO (11:15)
[2018-03-17] MEDS ORDERED: LEVAQUIN 500 M500 M2 PO (11:17)
[2018-03-17 11:29] VITALS: BP 182/64
[2018-03-17] MEDS ORDERED: LASIX 40 MG TAB40 M2 PO (12:56)
[2018-03-17 13:58] VITALS: BP 182/64
--- NOTE | 2018-03-17 14:19 | NUR ---
ASSUMED CARE AT 0730. ALERT ORIENTED PLEASANT COOPERATIVE. HX OF ENCEPHALOPATHY AND COPD. TRANSFERS WITH SBA G BELT WALKER AND AMBULATES TO BR TO VOID ABLE TO DO CLOTHING ADJUSTMENTS WEARS PULLUPS FOR STRESS INCONTINENCE. UP IN W/C AND READY FOR BREAKFAST FEEDS SELF OPENED MILK CONTAINER AND JUICE FOR PT. APPETITE GOOD TAKES MEDS 1 AT A TIME WITH WATER WITHOUT DIFFICULTY. HAD C XRAY THIS A.M. DENIES PAIN OR REQUESTS. HAS PICC LINE KERON FOR IV ANTIBIOTICS DR. EASTON ROUNDED AND D/CD IV ANTIBIOTICS STARTED ORAL. DR. PETERS WAS NOTIFIED OF WEIGHT GAIN IN 1 WEEK ORDERED LASIX 40 MG. PO X 7 DAYS. PARTICIPATED IN THERAPIES. PICC LINE DCD THIS AFTERNOON WITHOUT DIFFICULTY DRESSING APPLIED. RESTING IN BED AT PRESENT WILL D/C THIS AFTERNOON.
--- NOTE | 2018-03-17 15:46 | NUR ---
PALOMO faxed final orders and med list to pt preference of [facility]; PALOMO spoke with [facility] intake who accepted referral. Pt dtr Yadira to provide pt ride home. No other dc needs expressed.
--- NOTE | 2018-03-17 15:48 | NUR ---
DISMISSED WITH BELONGINGS WITH SCRIPT D/C INSTRUCTIONS WITH DAUGHTER PER W/C AND PRIVATE CAR AT 1430. VERBALIZED UNDERSTANDING OF INSTRUCTIONS ALLOWED TIME FOR QUESTIONS. WILL CALL ANY SCRIPTS TO [facility] IN [place].
--- NOTE | 2018-04-12 14:10 | D ---
[facility] [address] [place] [address] DISCHARGE SUMMARY Name: AZEB ALARCON Room: [address] IN .R.#: [id number] Admission: 02/26/18 Attend Phys: Andreia Zambrano DO Discharge: 03/17/18 Date of : 35 Report #: [id number] THIS REPORT FOR: //name// CC: Andreia Zambrano Chance Gray DATE OF SERVICE: 03/17/2018 DISCHARGE DIAGNOSIS: Debility. DISCHARGE DISPOSITION: To home with home health PT, OT and nursing. Oxygen per nasal cannula to keep sats greater than 90%. She will follow with her primary care physician within 1 week and Pulmonology within 2-4 weeks. Notifications for physician were given. She will maintain a regular diet. Monitor weight gain, ambulate with a front-wheeled walker with a platform and maintain fall precautions again. MEDICATIONS: Reviewed and reconciled by myself and are available in the MAR. DISCHARGE PHYSICAL EXAMINATION: GENERAL: Alert, oriented, in no apparent distress. VITAL SIGNS: Reviewed and are stable. HEENT: Atraumatic, normocephalic. Pupils equal, round, reactive. ABDOMEN: Soft, nontender, nondistended. <ELECTRONICALLY SIGNED> By: Andreia Zambrano DO 04/12/18 1410 1242 1405Kelmary Zambrano DO /kunal
== END 2018-03-17 15:30 | disposition home health service (06) | DRG 91 ==
LOC: M.TBA 14:32 → M.REH 15:18
PROVIDERS: Internal Medicine; Internal Medicine Infectious Disease; ADMIT Physical Medicine & Rehabilitation
DX: G92 Toxic encephalopathy (principal); A41.9 Sepsis, unspecified organism; J15.9 Unspecified bacterial pneumonia; J96.11 Chronic respiratory failure with hypoxia; J44.0 Chronic obstructive pulmonary disease with (acute) lower respiratory infection; J44.1 Chronic obstructive pulmonary disease with (acute) exacerbation; R53.81 Other malaise; J20.9 Acute bronchitis, unspecified; I48.91 Unspecified atrial fibrillation; I10 Essential (primary) hypertension; G89.29 Other chronic pain; M54.9 Dorsalgia, unspecified; M19.90 Unspecified osteoarthritis, unspecified site; G47.33 Obstructive sleep apnea (adult) (pediatric); E78.5 Hyperlipidemia, unspecified; F41.9 Anxiety disorder, unspecified; F32.9 Major depressive disorder, single episode, unspecified; E11.649 Type 2 diabetes mellitus with hypoglycemia without coma; Z87.891 Personal history of nicotine dependence; Z86.73 Personal history of transient ischemic attack (TIA), and cerebral infarction without residual deficits; Z87.440 Personal history of urinary (tract) infections; Z87.01 Personal history of pneumonia (recurrent); Z87.81 Personal history of (healed) traumatic fracture; Z91.81 History of falling; Z88.2 Allergy status to sulfonamides; Z83.3 Family history of diabetes mellitus; Z82.49 Family history of ischemic heart disease and other diseases of the circulatory system

== ENCOUNTER 2018-03-29 16:12 | Inpatient (IN) | payer MEDICARE, OTHER ==
[~2018-03-29] VITALS: Ht 162.6 cm; Wt 86.2 kg
[~2018-03-29 16:12] MED LIST changes: +DIFLUCAN200 MG PO; +LEVAQUIN 500 M500 M2 PO; +LEVAQUIN 750 M750 MG PO; +MELATONIN5 M1 PO
[2018-03-29 16:19] VITALS: BP 119/83
[2018-03-29 16:35] LABS: ABSOLUTE BASOPHILS 0.1 thou/uL (0.0-0.2); ABSOLUTE EOSINOPHILS 0.2 thou/uL (0.0-0.7); ABSOLUTE LYMPHOCYTES 1.3 thou/uL (0.8-5.3); ABSOLUTE NEUTROPHILS 9.4 thou/uL (1.6-8.1); BASOPHILS 0.5 %; EOSINOPHILS 1.5 %; HEMATOCRIT 32.6 % (37.0-47.0); HEMOGLOBIN 10.4 gm/dL (12.0-15.0); LYMPHOCYTES 11.1 %; MCHC 31.8 g/dL (28.0-37.0); MCV 91.2 fL (80.0-100.0); MONOCYTES 8.1 %; MPV 9.6 fl. (7.2-11.1); NUCLEATED RBCS 0 /100WBC; PLATELET COUNT* 203 thou/uL (150-400); POLYS 78.8 %; RBC 3.57 mil/uL (4.20-5.00); RDW-CV 16.2 % (10.5-14.5); WBC 11.9 thou/uL (4.0-11.0)
[2018-03-29 16:42] LABS: CALCIUM 7.7 mg/dL (8.5-10.1); CREATININE 1.8 mg/dL (0.6-1.3); POTASSIUM 3.3 mmol/L (3.5-5.1)
[2018-03-29 16:46] LABS: ALBUMIN 2.8 g/dL (3.4-5.0); TOTAL BILIRUBIN 0.7 mg/dL (<0.1-1.0); TOTAL PROTEIN 5.8 g/dL (6.4-8.2)
[2018-03-29 17:10] LABS: MAGNESIUM 1.8 mg/dL (1.8-2.4); TROPONIN-I LEVEL <0.06 ng/mL (<0.06)
[2018-03-29 18:13] LABS: URINE BILIRUBIN NEGATIVE (Negative); URINE BLOOD NEGATIVE (Negative); URINE CLARITY CLEAR; URINE COLOR YELLOW; URINE GLUCOSE-RANDOM NEGATIVE (Negative); URINE KETONES TRACE (Negative); URINE LEUKOCYTES-REFLEX 1+ (Negative); URINE NITRITE-REFLEX NEGATIVE (Negative); URINE PROTEIN 1+ (Negative); URINE SPECIFIC GRAVITY 1.015 (1.005-1.030); URINE UROBILINOGEN 0.2 E.U./dl (0.2-1.0)
[2018-03-29 18:25] LABS: HYALINE CASTS 4-10 Moderate /LPF (None Seen)
[2018-03-29 18:26] LABS: CRYSTALS None Seen /LPF (None Seen); MUCUS None Seen strn/LPF (None Seen); SQUAMOUS 0-3 Few /LPF (0-3); YEAST-REFLEX Present (None Seen)
[2018-03-29 18:27] LABS: BACTERIA-REFLEX 1-9 Few /HPF (None Seen); URINE RBC None Seen /HPF (0-2); URINE WBC-REFLEX 6-15 Few /HPF (0-5)
[2018-03-29 18:33] VITALS: BP 142/52
[2018-03-29 19:00] VITALS: BP 127/49
--- NOTE | 2018-03-29 19:00 | NUR ---
PT. ARRIVED TO UNIT AT APPROX. 1845. PT. A/OX4, VSS, MONITOR PLACED. PT ORIENTED TO ROOM AND PROVIDED A BOXED DINNER. REPORT GIVEN TO MADISYN HOUSER TO FOLLOW AND COMPLETE ADMISSION PROCESS.
[2018-03-29 19:30] VITALS: BP 113/40
[2018-03-30] VITALS: BP 94/43
[2018-03-30 04:00] VITALS: BP 121/47
[2018-03-30 05:39] LABS: ABSOLUTE EOSINOPHILS 0.2 thou/uL (0.0-0.7); ABSOLUTE LYMPHOCYTES 1.4 thou/uL (0.8-5.3); ABSOLUTE MONOCYTES 0.7 thou/uL (0.0-1.2); ABSOLUTE NEUTROPHILS 6.3 thou/uL (1.6-8.1); BASOPHILS 0.5 %; EOSINOPHILS 2.2 %; HEMATOCRIT 26.4 % (37.0-47.0); HEMOGLOBIN 8.5 gm/dL (12.0-15.0); LYMPHOCYTES 16.5 %; MCH 29.6 pg (26.0-34.0); MCHC 32.1 g/dL (28.0-37.0); MCV 92.4 fL (80.0-100.0); MONOCYTES 8.3 %; MPV 9.7 fl. (7.2-11.1); NUCLEATED RBCS 0 /100WBC; PLATELET COUNT* 154 thou/uL (150-400); POLYS 72.5 %; RBC 2.85 mil/uL (4.20-5.00); RDW-CV 16.1 % (10.5-14.5); WBC 8.8 thou/uL (4.0-11.0)
[2018-03-30 05:53] LABS: CALCIUM 7.1 mg/dL (8.5-10.1); CREATININE 1.8 mg/dL (0.6-1.3); POTASSIUM 3.8 mmol/L (3.5-5.1)
--- NOTE | 2018-03-30 08:08 | NUR ---
RECEIVED REPORT AND ASSUMED CARE AT 1900. VSS. CARDIAC MONITORING IN PLACE. ASSESSMENT COMPLETED CHARTED. MEDICATION ADMIN PER EMAR. DISCUSSED PLAN OF CARE WITH PT. VERBALIZED UNDERSTANDING. PT UP WITH ASSISTANCE, ON 2LNC. POSITION CHANGED EVERY TWO HOURS. BED LOCKED IN LOWEST POSITION, CALL LIGHT WITHIN REACH, BED ALARM ON. HOURLY ROUDNING COMPLETED AND ALL NEEDS MET. NURSING WILL CONTINUE TO MONITOR
[2018-03-30 08:35] VITALS: BP 120/40
--- NOTE | 2018-03-30 08:35 | NUR ---
PATIENT A/O X 4 THIS AM, FORGETFUL AT TIMES. PATIENT DENIES ANY PAIN OR N/V. O2 IN PLACE AT 2L/NC, CONGESTED COUGH NOTED. PATIENT TRACING AFIB WITH BBB ON LIBRARY MEDIA SPECIALIST. PATIENT'S ASSESSMENT CHARTED. DENIES ANY NEEDS AT THIS TIME. AWAITING NEURO AND CARDIO CONSULT. FALL PRECAUTIONS IN PLACE. CALL LIGHT WITHIN REACH. WILL CONTINUE WITH PLAN OF CARE.
--- NOTE | 2018-03-30 15:32 | NUR ---
ATTEMPTED TO MEET WITH PT, WAS SLEEPING. CALL TO DTR/PARRIS. PT KNOWN TO CM FROM [facility]OUS [facility]OS[facility] AND THEN INPT REHAB STAY. WAS DC'D 03/17 TO HOME WITH [facility]. PER PARRIS, IS STILL SEEING HER. PARRIS STATED PT HAD BEEN DOING FAIRLY WELL UNTIL 'EPISODE' DAY OF ADMIT. SHE VOICED CONCERN ABOUT POSSIBLE SEIZURE. AWAITING NEURO EVAL AND THERAPY EVALS. TALKED WITH PARRIS ABOUT POSSIBLE NEED FOR SNF PER DR KHAN. PT HAS BEEN TO [facility], [place] AND [facility]. SHE WAS INTERESTED IN [facility] AT LAST ADMIT PRIOR TO GOING TO INPT REHAB. WILL F/U WITH DTR AFTER EVALS COMPLETED TO DISCUSS FURTHER
[2018-03-30 16:25] VITALS: BP 112/41
--- NOTE | 2018-03-30 18:01 | NUR ---
PATIENT HAS BEEN A/O X 4, SLIGHTLY FORGETFUL AT TIMES THIS SHIFT. PATIENT HAS DENIED PAIN, N/V, OR DIZZINESS THIS SHIFT. PATIENT CONTINUES ON WELL DRILL OPERATOR CABLE TOOL TRACING AFIB WITH BBB. SEEN BY CARDIO AND HAD EEG COMPLETED THIS SHIFT. UP TO CHAIR FOR MEALS. PARTICIPATED WITH THERAPIES THIS SHIFT. PATIENT'S DAUGHTER HERE THIS AFTERNOON AND UPDATED ON PLAN OF CARE. FALL PRECAUTIONS IN PLACE. BED ALARM ON FOR PATIENT SAFETY. HOURLY ROUNDING COMPLETED. CALL LIGHT WITHIN REACH. WILL CONTINUE WITH PLAN OF CARE.
[2018-03-30 19:45] VITALS: BP 144/43
[2018-03-31] VITALS: BP 125/50
[2018-03-31 04:00] VITALS: BP 152/68
--- NOTE | 2018-03-31 05:07 | NUR ---
RECEIVED REPORT AND ASSUMED CARE AT 1900. VSS. CARDIAC MONITORING IN PLACE. PT DENIES ANY COMPLAINTS OF PAIN. ASSESSMENT COMPLETED CHARTED. DISCUSSED PLAN OF CARE WITH PT. VERBALIZED UNDERSTANDING. PT POSITION CHANGED EVERY TWO HOURS. PT UP WITH ASSIST TO BSC, ON 2L NC. PT SLEPT THE MAJORITY OF THE NIGHT. BED LOCKED IN LOWEST POSITION, CALL LIGHT WITHIN REACH, BED ALARM ON. HOURLY ROUDNING COMPLETED AND ALL NEEDS MET. WILL CONTINUE TO MONITOR
[2018-03-31 05:10] LABS: ABSOLUTE BASOPHILS 0.1 thou/uL (0.0-0.2); ABSOLUTE EOSINOPHILS 0.2 thou/uL (0.0-0.7); ABSOLUTE LYMPHOCYTES 1.9 thou/uL (0.8-5.3); ABSOLUTE MONOCYTES 0.6 thou/uL (0.0-1.2); BASOPHILS 0.7 %; EOSINOPHILS 2.8 %; HEMATOCRIT 26.5 % (37.0-47.0); HEMOGLOBIN 8.5 gm/dL (12.0-15.0); LYMPHOCYTES 24.1 %; MCH 29.4 pg (26.0-34.0); MONOCYTES 8.2 %; MPV 9.7 fl. (7.2-11.1); NUCLEATED RBCS 0 /100WBC; PLATELET COUNT* 162 thou/uL (150-400); POLYS 64.2 %; RBC 2.88 mil/uL (4.20-5.00); WBC 7.8 thou/uL (4.0-11.0)
[2018-03-31 06:02] LABS: ALBUMIN 2.3 g/dL (3.4-5.0); TOTAL BILIRUBIN 0.5 mg/dL (<0.1-1.0); TOTAL PROTEIN 4.6 g/dL (6.4-8.2)
[2018-03-31 06:05] LABS: POTASSIUM 3.7 mmol/L (3.5-5.1)
[2018-03-31 06:07] LABS: CALCIUM 8.3 mg/dL (8.5-10.1)
[2018-03-31 08:15] VITALS: BP 134/42
--- NOTE | 2018-03-31 08:15 | NUR ---
ASSUMED CARE OF PATIENT THIS AM. PATIENT DENIES ANY PAIN, N/V, OR SHORTNESS OF AIR. O2 IN PLACE AT 2L/NC. CONTINUES ON CARDIAC MONTIOR, TRACING AFIB WTIH BBB. ASSESSMENT CHARTED. VITALS STABLE. FALL PRECAUTIONS IN PLACE. CALL LIGHT WITHIN REACH. WILL CONTINUE WITH PLAN OF CARE.
--- NOTE | 2018-03-31 10:21 | EKG ---
[place] [address] ELECTROCARDIOGRAM REPORT Name: GORDOAZEB Room: [address] ADM IN .R.#: [id number] Admission: 03/29/18 Attend Phys: Isaiah Bullard MD Discharge: Date of : 35 Report #: [id number] THIS REPORT FOR: //name// [facility] ED Test Date: 2018-03-29 Test Time: 16:43:15 Pat Name: AZEB ALARCON Department: Room: [facility] Gender: F Nail Setter: Jose De Jesus FANG : 1935 Requested By: Milana Grover Order Number: [id number] MD: Antoni Guevara Measurements Intervals [place] Rate: 58 P: ID: QRS: -34 QRSD: 151 T: -81 QT: 539 QTc: 530 Interpretive Statements Atrial fibrillation Right bundle branch block Baseline wander in lead(s) V6 Compared to ECG 02/20/2018 09:53:14 Myocardial infarct finding no longer present Electronically Signed On 03-31-2018 10:21:35 CDT by Antoni Guevara [email or web address] <ELECTRONICALLY SIGNED> By: Antoni Guevara MD, [facility] 03/31/18 1021 1643 1643 Antoni Guevara MD, [facility] /EPI
[2018-03-31 11:33] VITALS: BP 142/58
--- NOTE | 2018-03-31 13:45 | NUR ---
PALOMO called and spoke with pt dtr in [facility] to discuss possible dc planning. If SNF is needed at time of dc, Pt/pt family preference would be for pt to go to [facility]. SW to continue to follow to assist with safe dc planning.
[2018-03-31 15:33] VITALS: BP 142/55
--- NOTE | 2018-03-31 18:17 | NUR ---
PATIENT A/O X 4 THIS SHIFT, SLIGHTLY FORGETUL AT TIMES. PATIENT HAS DENIED PAIN OR SHORTNESS OF AIR. PATIENT HAS BEEN AFIB WITH BBB, RATE IN THE 50s TO 60s. PATIENT UP TO CHAIR FOR ALL MEALS THIS SHIFT. STARTED ON IV ANTIBIOTICS THIS AFTERNOON. PATIENT WORKED WITH PT/OT THIS SHIFT. PATIENT TOLERATING DIET. LABS ORDERED FOR THE AM, HAD RENAL ULTRASOUND COMPLETED THIS SHIFT. FALL PRECAUTIONS IN PLACE. HOURLY ROUNDING COMPLETED. CALL LIGHT WITHIN REACH. WILL CONTINUE WITH PLAN OF CARE.
[2018-03-31 19:30] VITALS: BP 152/52
[2018-04-01] VITALS: BP 134/59
[2018-04-01 04:00] VITALS: BP 147/43
[2018-04-01 04:50] LABS: HEMATOCRIT 27.4 % (37.0-47.0); HEMOGLOBIN 8.8 gm/dL (12.0-15.0); MCH 29.3 pg (26.0-34.0); MCV 91.5 fL (80.0-100.0); MPV 9.6 fl. (7.2-11.1); RBC 2.99 mil/uL (4.20-5.00); RDW-CV 15.4 % (10.5-14.5)
--- NOTE | 2018-04-01 05:05 | NUR ---
RECEIVED REPORT AND ASSUMED CARE AT 1900. VSS. CARDIAC MONITORING IN PLACE. PT DENIES ANY COMPLAINTS OF PAIN. ASSESMENT COMPLETED CHARTED. MEDICATION ADMIN PER EMAR. DISCUSSED PLAN OF CARE WITH PT, VERBALIZED UNDERSTANDING. POSITION CHANGED EVERY TWO HOURS. BED LOCKED IN LOWEST POSITION, CALL LIGHT WITHIN REACH. BED ALARM ON. HOURLY ROUNDING COMPLETED AND ALL NEEDS MET. WILL CONTINUE TO MONITOR
[2018-04-01 05:09] LABS: ALBUMIN 2.3 g/dL (3.4-5.0); CALCIUM 7.8 mg/dL (8.5-10.1); CREATININE 1.8 mg/dL (0.6-1.3); MAGNESIUM 1.7 mg/dL (1.8-2.4); TOTAL BILIRUBIN 0.5 mg/dL (<0.1-1.0); TOTAL PROTEIN 5.4 g/dL (6.4-8.2)
[2018-04-01 08:30] VITALS: BP 121/84
--- NOTE | 2018-04-01 10:00 | NUR ---
ASSUMED CARE OF PT AT 0730 AFTER RECEIVING REPORT FROM NOC MIK MARS. RESEARCH NURSE IN PLACE, AFIB/BBB. IV SL. ROOM AIR, SATS 99%. NO C/O OF PAIN OR DISTRESS. CALL LIGHT IN PLACE.
[2018-04-01 12:00] VITALS: BP 150/87
[2018-04-01 15:52] VITALS: BP 152/90
--- NOTE | 2018-04-01 16:30 | NUR ---
PT'S FAMILY MEMBER INQUIRING ABOUT DC PLAN FOR PT. REVIEWED NOTES WHICH REVEAL SNF PLAN AT DC. INFORMED PT'S DTR PARRIS THAT WE WILL COMMUNICATE WITH HER ABOUT PLACEMENT.
[2018-04-01 20:00] VITALS: BP 164/56
[2018-04-02] VITALS (9 sets, daily range): BP systolic 116–139; BP diastolic 45–81
[2018-04-02 04:22] LABS: HEMATOCRIT 27.2 % (37.0-47.0); HEMOGLOBIN 8.7 gm/dL (12.0-15.0); MCH 29.1 pg (26.0-34.0); MCHC 31.9 g/dL (28.0-37.0); MCV 91.5 fL (80.0-100.0); RBC 2.97 mil/uL (4.20-5.00); RDW-CV 15.3 % (10.5-14.5); WBC 7.1 thou/uL (4.0-11.0)
[2018-04-02 04:59] LABS: ALBUMIN 2.3 g/dL (3.4-5.0); CREATININE 1.6 mg/dL (0.6-1.3); MAGNESIUM 1.5 mg/dL (1.8-2.4); POTASSIUM 3.9 mmol/L (3.5-5.1); TOTAL BILIRUBIN 0.5 mg/dL (<0.1-1.0); TOTAL PROTEIN 4.9 g/dL (6.4-8.2)
--- NOTE | 2018-04-02 06:59 | NUR ---
ASSUMED PT CARE REPORT RECEIVED FROM NURSE. PT IS ALERT AWAKE ORIENTED X4 VITAL SIGNS WITHIN NORMAL LIMIT. SHE IS LAYING IN BED . ON FALL PRECAUTION BED ALRM ON.CALL LIGHT AT REACH. REMAINS AFIB ON THE GLASS CLEANING MACHINE TENDER. MAGNESIUM RPLACMENT GIVEN IN THE AM ALONG WITH MORNING MEDS. IV LINE IS PATENT.
--- NOTE | 2018-04-02 10:00 | NUR ---
ASSUMED CARE OF PT AT 729, AFTER RECEIVING REPORT FROM NOC MIK EDMOND. PT A & O X4. LICSW IN PLACE, AFIB BBB. IV SL. SATS 98% ON 2L NC. ASSESSMENT COMPLETED. MEDS PER OCT. CALL LIGHT IN REACH.
--- NOTE | 2018-04-02 15:45 | NUR ---
SPOKE TO PT'S DTR WHO WILL PICK HER UP. SHE STATES SHE WOULD LIKE HH FROM [facility]. FACE SHEET AND DC SUMMARY FAXED TO
--- NOTE | 2018-04-02 16:30 | NUR ---
CONTACTED DR. PEÑA TO REPORT MAGNESIUM LEVEL OF 1.4. REC'D ORDER TO GIVE PATIENT IV INFUSION OF MAGNESIUM AND RECHECK MAGNESIUM LAB AT 1999. DC ON HOLD UNTIL LAB WNL.
[2018-04-02] MEDS ORDERED: COLACE100 MG PO (17:59)
[2018-04-02] MEDS ORDERED: KEFLEX250 MG PO (18:07)
--- NOTE | 2018-04-02 21:13 | NUR ---
ASSUMED PT CARE REPORT RECEIVED FROM NURSE. PT IS AWAITNIG FOR LAB RESULT FOR MAGNESIUM THEN IS OK TO BE DISCHARGED ORDERED. SHE IS ALERT AWAKE ORIENTED X 4. A FIB ON THE FORK ASSEMBLER. HR 71. O2 SATURATION 92% ON RA. PT DOES WEAR OZ AT NIGHT AT HOME, BUT DAUGHTER WAS UNABLE TO FIND AN O2 TANK TO BRING WITH HER. HER VITALS ARE WITHIN NORMAL LIMIT. MAGNESIUM LAB DRAWN AT 1999 RESULT CAME BACK TO 2.0 ( NORMAL) SO PT READY TO LEAVE WITH DAUGHTER WHO IS IN THE ROOM. IV LINE WAS TAKEN OUT. FORK ASSEMBLER OFF. DISCHARGE INSTRUCTION GIVEN TO PT ALONG WITH DAUGHTER. PT WAS DISCHARGED AT 2109 ACCOMPANIED BY TECH AND DAUGHTER ON A WHEELCHAIR. BELONGINGS BROUGHT ALONG.
--- NOTE | 2018-04-06 12:34 | EEG ---
[address] [address] EEG STUDY REPORT Name: AZEB ALARCON Room: [address]#: [id number] Admission: 03/29/18 Attend Phys: Isaiah Bullard MD Discharge: 04/02/18 Date of : 35 Report #: [id number] THIS REPORT FOR: //name// CC: Isaiah Bullard [facility] DATE OF SERVICE: 03/30/2018 This patient is being evaluated for altered mental status. EEG was done by placing the electrodes by standard 10-20 system of electrode placement. Both referential and sequential montages were used for recording. Background activity in this patient's EEG is about 9 Hz and 30 microvolt. This patient's goes to sleep and that is associated with bilaterally symmetrical sleep spindles and vertex sharp waves. Photic stimulation was unremarkable. Throughout the record, no active epileptiform activity was noticed. IMPRESSION: This patient's electroencephalogram is unremarkable. <ELECTRONICALLY SIGNED> By: Rick Ga MD 04/06/18 1234 0735 0749Rick Ga MD /nt
--- NOTE | 2018-04-06 12:34 | CON ---
[facility] [address] [place] [address] CONSULTATION Name: AZEB ALARCON Room: [address] IN .R.#: [id number] Admission: 03/29/18 Attend Phys: Isaiah Bullard MD Discharge: 04/02/18 Date of : 35 Report #: [id number] THIS REPORT FOR: //name// CC: Isaiah Gray DATE OF SERVICE: 03/30/2018 HISTORY OF PRESENT ILLNESS: This is an 82-year-old female patient who was evaluated by me for the possibility of seizure. The patient gives a history that she was on the potty and then, she felt weak and there was some jerking noticed. She was fully conscious during this episode. She is a diabetic and she does not know what her blood sugar was at that time. This patient does have a history of atrial flutter in the past. In fact, I had seen this patient in 2016 and at that time, she also had a spell, which was attributed to her heart. During this admission, she was noticed to be bradycardic in Emergency Room. She does not know what brought this episode on. REVIEW OF SYSTEMS: Positive for atrial flutter. She is on anticoagulation. She has had some weakness and dehydration. She does have a history of COPD. I carried out 14-point review of system. She does have a history of diabetes, COPD, chronic anticoagulation. She does not feel she is confused and although she knew that I was the one who saw her in 2016. She feels back to her baseline. She does have a history of diabetes and carotid disease in the past. Her last carotid Doppler was in 2017 and that showed only mild disease. She is not complaining of any new eye, ENT, cardiac, GI, , musculoskeletal, constitutional, dermatological, hematological, psychiatric, throat, allergic symptom associated with present symptomatology. She does have a cardiac history, but is not having any active symptoms. PAST MEDICAL HISTORY: Positive for similar spell in 2016. FAMILY HISTORY: Negative for early age stroke. SOCIAL HISTORY: She lives with her daughter, but able to do most of the things by herself. PHYSICAL EXAMINATION: Indicate that she is alert. She is responsive. She is oriented. She can follow simple command. She believes her speech, concentration, fund of knowledge and memory is at her baseline. Cranial nerve examination 2-12 looks unremarkable. She has some restriction of motion in the shoulder and the elbows, but that is her baseline. Her position sense is intact on both sides. The reflexes are diminished. Tone is diminished. There is no cerebellar sign. There is no carotid bruit. Her pulses are difficult to feel. She has no edema, cyanosis or jaundice. Cardiac is positive for history of [facility] [address] [place] [address] CONSULTATION Name: AZEB ALARCON Room: [address]#: [id number] Admission: 03/29/18 Attend Phys: Isaiah Bullard MD Discharge: 04/02/18 Date of : 35 Report #: [id number] atrial fibrillation. She does have rhonchi on both sides, but not much respiratory difficulty. Her blood pressure is 120/40, pulse is 64, temperature is 98.6. Her hemoglobin is 8.5 and that is diminished from 10.4. Her GFR is only 27. She does have a high LDL at 141. She is otherwise a reasonably well-built individual who does not have any dysmorphic features of eyes, ears and face. Vision and hearing looks adequate. She did have a CT scan of the head, which did not show any acute process. IMPRESSION: This patient presents with an episode of seizure-like activity. She was conscious during this episode, making it unlikely that it was epileptic seizure. It is possible that systemic problems cause this. She is also recuperating from a prolonged illness and because of that she may predispose to have vasovagal spell. I discussed that aspect with her. We will do some further workup and that workup is ordered with MRI and EEG and we will see if it shows any abnormality and if it does, then we will follow up this patient with you. Thank you very much for this referral and if you have any question, please feel free to contact me. <ELECTRONICALLY SIGNED> By: Rick Ga MD 04/06/18 1234 1058 1410Rick Ga MD /nt
== END 2018-04-02 21:10 | disposition home health service (06) | DRG 100 ==
LOC: M.ERS 16:12 → M.TBA-ER 17:43 → M.2W 17:43
PROVIDERS: Family Medicine; Nurse Practitioner; Physician Assistant; ADMIT Internal Medicine
DX: R56.9 Unspecified convulsions (principal); G93.41 Metabolic encephalopathy; R65.11 Systemic inflammatory response syndrome (SIRS) of non-infectious origin with acute organ dysfunction; N39.0 Urinary tract infection, site not specified; E44.0 Moderate protein-calorie malnutrition; I48.3 Typical atrial flutter; J44.9 Chronic obstructive pulmonary disease, unspecified; G89.29 Other chronic pain; M54.9 Dorsalgia, unspecified; E66.9 Obesity, unspecified; D64.9 Anemia, unspecified; R00.1 Bradycardia, unspecified; E11.22 Type 2 diabetes mellitus with diabetic chronic kidney disease; N18.3 Chronic kidney disease, stage 3 (moderate); R46.4 Slowness and poor responsiveness; I12.9 Hypertensive chronic kidney disease with stage 1 through stage 4 chronic kidney disease, or unspecified chronic kidney disease; E86.0 Dehydration; M19.90 Unspecified osteoarthritis, unspecified site; G47.33 Obstructive sleep apnea (adult) (pediatric); I48.91 Unspecified atrial fibrillation; Z87.81 Personal history of (healed) traumatic fracture; Z68.32 Body mass index [BMI] 32.0-32.9, adult; Z88.2 Allergy status to sulfonamides; Z82.49 Family history of ischemic heart disease and other diseases of the circulatory system; Z83.3 Family history of diabetes mellitus; Z87.891 Personal history of nicotine dependence; Z79.01 Long term (current) use of anticoagulants; Z79.899 Other long term (current) drug therapy

== ENCOUNTER 2018-04-27 11:20 | Inpatient (IN) | payer MEDICARE, OTHER ==
[~2018-04-27] VITALS: Ht 165.1 cm; Wt 82.6 kg
[~2018-04-27 11:20] MED LIST changes: +COLACE100 MG PO; +KEFLEX250 MG PO
[2018-04-27 11:53] LABS: ABSOLUTE BASOPHILS 0.2 thou/uL (0.0-0.2); ABSOLUTE EOSINOPHILS 0.1 thou/uL (0.0-0.7); ABSOLUTE LYMPHOCYTES 2.4 thou/uL (0.8-5.3); ABSOLUTE MONOCYTES 1.2 thou/uL (0.0-1.2); ABSOLUTE NEUTROPHILS 7.3 thou/uL (1.6-8.1); BASOPHILS 1.4 %; EOSINOPHILS 0.9 %; HEMATOCRIT 38.9 % (37.0-47.0); HEMOGLOBIN 12.3 gm/dL (12.0-15.0); LYMPHOCYTES 21.7 %; MCH 28.7 pg (26.0-34.0); MCHC 31.5 g/dL (28.0-37.0); MCV 91.3 fL (80.0-100.0); MONOCYTES 10.9 %; MPV 9.7 fl. (7.2-11.1); NUCLEATED RBCS 0 /100WBC; PLATELET COUNT* 270 thou/uL (150-400); POLYS 65.1 %; RBC 4.27 mil/uL (4.20-5.00); RDW-CV 17.1 % (10.5-14.5); WBC 11.2 thou/uL (4.0-11.0)
[2018-04-27 11:57] LABS: ANION GAP 8 mmol/L (7-16); BUN 16 mg/dL (7-18); CALCIUM 9.3 mg/dL (8.5-10.1); CHLORIDE 105 mmol/L (98-107); CO2 27 mmol/L (21-32); CREATININE 1.3 mg/dL (0.6-1.3); GLUCOSE 224 mg/dL (70-99); POTASSIUM 3.7 mmol/L (3.5-5.1); SODIUM 140 mmol/L (136-145)
[2018-04-27 12:04] LABS: ALBUMIN 3.2 g/dL (3.4-5.0); ALKALINE PHOSPHATASE 73 U/L (46-116); SGOT 20 U/L (15-37); SGPT 15 U/L (30-65); TOTAL PROTEIN 6.5 g/dL (6.4-8.2); TROPONIN-I LEVEL <0.06 ng/mL (<0.06)
[2018-04-27 13:26] LABS: URINE BLOOD 1+ (Negative); URINE CLARITY CLEAR; URINE COLOR YELLOW; URINE GLUCOSE-RANDOM NEGATIVE (Negative); URINE KETONES TRACE (Negative); URINE LEUKOCYTES-REFLEX TRACE (Negative); URINE NITRITE-REFLEX NEGATIVE (Negative); URINE PROTEIN 2+ (Negative); URINE SPECIFIC GRAVITY 1.025 (1.005-1.030); URINE UROBILINOGEN 0.2 E.U./dl (0.2-1.0)
[2018-04-27 13:28] LABS: ICTOTEST (BILI CONFIRMATORY) Negative (Negative); URINE BILIRUBIN 1+ (Negative)
[2018-04-27 13:34] LABS: SQUAMOUS 4-10 Moderate /LPF (0-3)
[2018-04-27 13:35] LABS: CASTS None Seen /LPF (None Seen); CRYSTALS None Seen /LPF (None Seen); MUCUS None Seen strn/LPF (None Seen); URINE RBC 3-10 Few /HPF (0-2)
[2018-04-27 15:22] VITALS: BP 160/49
--- NOTE | 2018-04-27 16:49 | EKG ---
[place] [address] ELECTROCARDIOGRAM REPORT Name: JEANIE ALARCONLENE Alex Room: [address] IN [facility].#: [id number] Admission: 04/27/18 Attend Phys: Ruby Jolly MD Discharge: Date of : 35 Report #: [id number] THIS REPORT FOR: //name// [facility] ED Test Date: 2018-04-27 Test Time: 11:52:03 Pat Name: AZEB ALARCON Department: Room: [facility] Gender: F Energy Infrastructure Engineer: : 1935 Requested By: Merlyn Mcqueen Order Number: [id number] MD: Gallo Martinez Measurements Intervals [place] Rate: 58 P: UT: QRS: -58 QRSD: 152 T: 262 QT: 471 QTc: 463 Interpretive Statements Atrial fibrillation RBBB and LAFB Compared to ECG 03/29/2018 16:43:15 Left anterior fascicular block persists Electronically Signed On 04-27-2018 16:49:16 CDT by Gallo Martinez [email or web address] <ELECTRONICALLY SIGNED> By: Gallo Martinez MD, [facility] 04/27/18 1649 1152 1152 Gallo Martinez MD, [facility] /EPI
[2018-04-27 16:53] VITALS: BP 140/62
--- NOTE | 2018-04-27 17:43 | NUR ---
ASSUMED CARE OF PT AT 1525. AFTER RECIEVING REPORT FROM RAYO HOUSER. PT ORIENTED TO UNIT AND SERVICES, VS OBTAINED AND FOOD AND DRINJK OFFERED. NURSING ASSESSMENT COMPLETED AND FAMILY PROGRAM SPECIALIST APPLED. MEDICATIONS ADMINISTERED PER OCT. PT TRACING A FIN ON THE MONITOR AND VSS ON ROOM AIR. NURSING WILL CONTINUE TO MONITOR.
[2018-04-28] VITALS: BP 111/73
--- NOTE | 2018-04-28 02:08 | NUR ---
ASSUMED CARE OF PATIENT AT 1900. VSS, AFEBRILE. HAD BEEN UP TO BSC DURING SHIFT CHANGE. HAD BOWEL MOVEMENT THAT IS BEST DESCRIBED EXPLOSIVE. SALESPERSON WOMEN'S DRESSES'S IN TO CLEAN IT UP. PATIENT IS A&OX2-3, FORGETFUL AT TIMES. TEARFUL AND STATES TODAY IS ONE YEAR ANNIVERSARY OF DAUGHTER PASSING FROM CANCER. DENIES PAIN, SOA OR N/V. NO OBVIOUS SIGNS OF DISTRESS. WILL CONTINUE TO MONITOR CLOSELY.
[2018-04-28 04:00] VITALS: BP 169/74
[2018-04-28 05:03] LABS: HEMATOCRIT 34.5 % (37.0-47.0); HEMOGLOBIN 10.9 gm/dL (12.0-15.0); MCHC 31.5 g/dL (28.0-37.0); MPV 9.7 fl. (7.2-11.1); RBC 3.75 mil/uL (4.20-5.00); RDW-CV 17.4 % (10.5-14.5); WBC 11.3 thou/uL (4.0-11.0)
[2018-04-28 05:22] LABS: CALCIUM 8.3 mg/dL (8.5-10.1); CREATININE 1.2 mg/dL (0.6-1.3); MAGNESIUM 1.3 mg/dL (1.8-2.4); POTASSIUM 3.4 mmol/L (3.5-5.1)
[2018-04-28 08:00] VITALS: BP 135/73
[2018-04-28 11:52] VITALS: BP 162/61
--- NOTE | 2018-04-28 12:23 | NUR ---
8180 ASSUMED CARE OF PATIENT. SEE DOCUMENTED ASSESSMENT. PT ORIENTED X 2. BED ALARM ON AND SAFETY PRECAUTIONS IN PLACE.
--- NOTE | 2018-04-28 12:24 | NUR ---
1200 7 BEAT V TACH. PRIMARY NOTIFIED. WILL RECHECK LABS AT 1400
[2018-04-28 14:30] LABS: MAGNESIUM 1.6 mg/dL (1.8-2.4); POTASSIUM 3.5 mmol/L (3.5-5.1)
--- NOTE | 2018-04-28 15:00 | NUR ---
SPOKE TO PATIENT AND DTR TO DISCUSS HOME SITUATION, DISCHARGE PLANNING, AND TO INFORM OF THE ROLE OF CM. PATIENT IS ALERT AND ORIENTED, BUT FORGETFUL. PATIENT RESIDES AT HOME WITH HER DTR PARRIS, AND SHE ASSIST THE PATIENT NEEDED WITH CARES. PATIENT USES A WALKER OR WC FOR MOBILITY, AND ALSO HAS NEB, O2, AND CPAP FROM [facility] AT HOME. PATIENT IS CURRENTLY ON-SERVICE WITH [facility] FOR PT/OT. PATIENT HAS A HX OF SNF AT [facility] AND [facility]. PATIENT AND DTR INFORM THAT THE PLAN IS FOR PATIENT TO GO TO [facility] SKILLED AT DC AND EVENTUALLY TRANSITION TO LTC. SPOKE TO ANGÉLICA WITH ADMISSIONS AT [facility], AND FAXED REFERRAL. CM WILL REMAIN AVAILABLE TO ASSIST AND FOLLOW NEEDED.
[2018-04-28 15:38] VITALS: BP 168/59
--- NOTE | 2018-04-28 17:59 | NUR ---
SOME PROGRESSION TOWARDS GOALS. ORIENTED X 2. DOES NOT USE CALL LIGHT. INCONTINENT. UP TO CHAIR AND WORKED WITH THERAPY. HAS HAD POTASSIUM AND MAGNESIUM REPLACED TODAY WITH REDRAW THIS EVENING AGAIN. DAUGHTER HAS VISITED
[2018-04-28 20:00] VITALS: BP 153/66
[2018-04-28 21:18] LABS: MAGNESIUM 1.4 mg/dL (1.8-2.4); POTASSIUM 4.3 mmol/L (3.5-5.1)
[2018-04-29 00:17] VITALS: BP 162/72
[2018-04-29 04:10] VITALS: BP 142/44
--- NOTE | 2018-04-29 04:25 | NUR ---
ASSUMED PT CARE AT 1930. ASSESSMENT COMPLETED CHARTED. PT AGREEABLE TO MOST OF THE CARE GIVEN, PT SPIT OUT HER MEDICATION AFTER DRINKING WATER THEN SPITTING OUT THE WATER, PT WAS DIFFICULT TO KEEP AWAKE. PT HAS BEEN RESTING IN BED ALL NIGHT, Q2TURN, INCONTINENT OF BOWEL AND BLADDER. WILL CONTINUE TO MONITOR.
[2018-04-29 05:32] LABS: ALBUMIN 2.8 g/dL (3.4-5.0); CALCIUM 8.8 mg/dL (8.5-10.1); CREATININE 1.3 mg/dL (0.6-1.3); MAGNESIUM 1.5 mg/dL (1.8-2.4); POTASSIUM 4.5 mmol/L (3.5-5.1); TOTAL BILIRUBIN 0.6 mg/dL (<0.1-1.0); TOTAL PROTEIN 5.3 g/dL (6.4-8.2)
[2018-04-29 06:26] LABS: HEMATOCRIT 35.6 % (37.0-47.0); HEMOGLOBIN 11.3 gm/dL (12.0-15.0); MCH 29.5 pg (26.0-34.0); MCHC 31.6 g/dL (28.0-37.0); MCV 93.4 fL (80.0-100.0); MPV 10.1 fl. (7.2-11.1); RBC 3.81 mil/uL (4.20-5.00); RDW-CV 17.6 % (10.5-14.5); WBC 10.3 thou/uL (4.0-11.0)
[2018-04-29 08:00] VITALS: BP 161/68
[2018-04-29 12:00] VITALS: BP 149/74
[2018-04-29 16:39] VITALS: BP 112/67
[2018-04-29 19:30] VITALS: BP 150/66
[2018-04-30] VITALS: BP 114/43
[2018-04-30 04:44] LABS: HEMATOCRIT 31.6 % (37.0-47.0); HEMOGLOBIN 10.1 gm/dL (12.0-15.0); MCH 29.4 pg (26.0-34.0); MCHC 32.2 g/dL (28.0-37.0); MCV 91.6 fL (80.0-100.0); RBC 3.45 mil/uL (4.20-5.00); WBC 10.5 thou/uL (4.0-11.0)
[2018-04-30 04:48] LABS: CALCIUM 8.2 mg/dL (8.5-10.1); CREATININE 1.4 mg/dL (0.6-1.3); MAGNESIUM 1.3 mg/dL (1.8-2.4); POTASSIUM 3.8 mmol/L (3.5-5.1)
--- NOTE | 2018-04-30 05:05 | NUR ---
AT BEGINNING OF SHIFT PT AAOX1. PT CONFUSED, BUT FOLLOWS COMMANDS WITHOUT DIFFUICLUTLY, RESP REG ADN UNALBORED SKIN W/D AND NO ACUTE DISTRESS NOTED. PT DENIES ANY PAIN OR SOB. PT IS INCONTINENT, O2 3 LBNC INTACT VSS AND NO ACUTE CHANGES DURING SHIFT WILL CONTNUE TO MONITOR
[2018-04-30 07:30] VITALS: BP 157/55
[2018-04-30 15:57] VITALS: BP 155/55
--- NOTE | 2018-04-30 16:05 | NUR ---
VSS, ASSUMED CARE IN THE AM, ASSESSMENT PERFORMED AND CHARTED, FALL PRECAUTIONS IN PLACE NAD CALL LIGHT IN REACH, PT IS ON RA AND IF POSSIBLE TO SAT ON ONLY RA, SHE IS MED-SURG STATUS, UP WITH ONE AND IS CONFUSED ALERT TO SELF, PT GOAL IS TO SIT UP IN CHAIR, SHE DENIES ANY PAIN, AT THIS TIME GOAL HAS BEEN MET, PT WAS UP IN CHAIR FOR LUNCH, AND REMAINS IN RA, WILL FOLLOW WITH PLAN OF CARE.
[2018-04-30 19:25] VITALS: BP 117/85
[2018-05-01] VITALS: BP 159/59
[2018-05-01 04:42] LABS: HEMATOCRIT 33.8 % (37.0-47.0); HEMOGLOBIN 10.8 gm/dL (12.0-15.0); MCH 29.1 pg (26.0-34.0); MPV 9.9 fl. (7.2-11.1); RBC 3.71 mil/uL (4.20-5.00); RDW-CV 16.6 % (10.5-14.5); WBC 11.1 thou/uL (4.0-11.0)
[2018-05-01 04:46] LABS: CALCIUM 9.6 mg/dL (8.5-10.1); CREATININE 1.8 mg/dL (0.6-1.3); MAGNESIUM 1.9 mg/dL (1.8-2.4)
--- NOTE | 2018-05-01 04:51 | NUR ---
PT IS ALERT BUT CONFUSED ORIENTED TO SELF ONLY. RESP REG AND UNALABORED SKIN W/D NO ACUTE DISTRESS NOTED AT THIS TIME. PT DENIES PAIN AND SOB. PT HAS NOTEREQUIRED ANY O2 THIS SHIFT. PT IS INCONTINENT AND HAS BEEN TURNED Q2 HOURS. PT STATES SHE WANTS TO GO HOME. VSS AND NO ACUTE CHANGES DURING SHIFT WILL CONTINUE TO MONITOR
[2018-05-01 08:00] VITALS: BP 115/49
--- NOTE | 2018-05-01 12:30 | NUR ---
BUSINESS SERVICES REPRESENTATIVE SPOKE TO PATIENT AND DTR TO DISCUSS DISCHARGE PLANNING NEEDS AND SKILLED AT D/C. PATIENT'S DTR INFORMS THAT THEY STILL PLAN FOR THE PATIENT TO GO TO [facility] SKILLED AT D/C. DR RIVERA INFORMS THAT PATIENT WILL REMAIN IN THE HOSPITAL FOR 1-2 MORE DAYS. SPOKE TO ANGÉLICA WITH ADMISSIONS AT [facility] TO INFORM OF THIS INFO AND SHE INFORMS THAT THEY WILL AWAIT D/C UPDATE AND D/C ORDERS FOR THE PATIENT. CM WILL REMAIN AVAILABLE TO ASSIST AND FOLLOW NEEDED.
--- NOTE | 2018-05-01 18:01 | NUR ---
VSS, ASSUMED CARE IN THE AM, ASSESSMENT PERFORMED AND CHARTED, FALL PRECAUTIONS IN PLACE AND CALL LIGHT IN REACH, PT IS CONFUSED ALERT TO HERSELF AND STAFF, PT DENIES ANY PAIN, IS ON RA AND DENIES ANY PAIN, MED-SURG STATUS, PT GOAL IS TO SIT UP IN CHAIR AND IMOROVE LABS, AT THIS TIME NOT STAUTUS CHANGE IS NOTED, PT IS INCONT OF URINE, AND IS IN BED RESTING, PT WORKED WITH PT, AND HER D/C PLAN IS TO TRANSFUR TO [facility], HOURLY ROUNDS COMPLETED WILL FOLLOW WITH PLAN OF CARE.
[2018-05-01 20:00] VITALS: BP 180/60
[2018-05-02 00:59] VITALS: BP 124/43
[2018-05-02 04:03] LABS: HEMATOCRIT 33.3 % (37.0-47.0); HEMOGLOBIN 10.7 gm/dL (12.0-15.0); MCH 29.5 pg (26.0-34.0); MCHC 32.1 g/dL (28.0-37.0); MCV 91.9 fL (80.0-100.0); MPV 10.3 fl. (7.2-11.1); RBC 3.62 mil/uL (4.20-5.00); RDW-CV 16.6 % (10.5-14.5); WBC 11.4 thou/uL (4.0-11.0)
[2018-05-02 04:26] LABS: CALCIUM 8.7 mg/dL (8.5-10.1); CREATININE 1.5 mg/dL (0.6-1.3); POTASSIUM 3.8 mmol/L (3.5-5.1)
--- NOTE | 2018-05-02 07:40 | NUR ---
PT SLEPT MOST OF SHIFT. ASSESSMENT DOCUMENTED. MEDS GIVEN PER E-MAR. IV PATENT, FLUIDS INFUSING. NO REPORTS OF PAIN. PT REPOSITIONED THROUGH NIGHT. WILL CONTINUE WITH PLAN OF CARE.
[2018-05-02 09:00] VITALS: BP 102/36
--- NOTE | 2018-05-02 10:53 | NUR ---
CALL FROM ANGÉLICA[facility] ASKING FOR UPDATE ON PT. READ PROGRESS NOTE FOR TODAY. APPEARS PT.MAY BE READY FOR DISCHARGE TOMORROW TO SNF. CM WILL UPDATE ANGÉLICA TOMORROW REGARDING DISCHARGE.
--- NOTE | 2018-05-02 16:12 | NUR ---
PATIENT UP TO CHAIR WITH THERAPY THIS SHIFT. INCONTINENT OF URINE, NO BM FOR SEVERAL DAYS WILL GIVEN PRN STOOL SOFTNER AND PRUNE JUICE. IVF INFUSING, SCHED ABX INFUSED. PATIENT TO GO TO [facility] TOMORROW. NO COMPLAINTS OF PAIN THIS SHIFT. PATIENT SET UP FOR MEALS AND ABLE TO FEED SELF.
[2018-05-02 19:45] VITALS: BP 152/55
[2018-05-03 04:25] LABS: CALCIUM 8.1 mg/dL (8.5-10.1); CREATININE 1.2 mg/dL (0.6-1.3); POTASSIUM 4.2 mmol/L (3.5-5.1)
[2018-05-03 09:00] VITALS: BP 179/59
[2018-05-03] MEDS ORDERED: MACRODANTIN100 MG PO (10:41)
[2018-05-03 11:20] VITALS: BP 179/59
[2018-05-03 11:32] VITALS: BP 179/59
--- NOTE | 2018-05-03 11:53 | NUR ---
PHILATELIC CONSULTANT SPOKE TO PATIENT'S DTR TO DISCUSS DISCHARGE PLANNING NEEDS AND THE PATIENT'S D/C TO [facility]. PATIENT'S DTR INFORMS THAT SHE WILL ARRIVE AT THE HOSPITAL TODAY AT 1400 TO PROVIDE TRANSPORT TO [facility]. SPOKE TO ANGÉLICA WITH [facility] TO INFORM THAT PATIENT WILL D/C TODAY, PATIENT'S DTR WILL PROVIDE TRANSPORT, AND FAXED PATIENT'S D/C ORDERS. INFORMED RN IN-CHARGE OF PATIENT OF PATIENT'S TIME OF TRANSPORT, AND WHERE TO CALL REPORT. CM WILL REMAIN AVAILABLE TO ASSIST AND FOLLOW NEEDED.
--- NOTE | 2018-05-03 15:50 | NUR ---
PATIENT DISCHARGED FROM UNIT AT 1445. ALERT AND ORIENTED X 4. VITAL SIGNS STABLE ON ROOM AIR. IV DISCONTINUED. DAUGHTER ARRIVED TO TRANSPORT PATIENT TO [place] FOR LTC. DISCHARGE PACKET GIVEN TO DAUGHTER TO GIVE TO FACILITY. LEFT WITH DAUGHTER VIA CAR.
[2018-05-03 16:00] VITALS: BP 179/59
== END 2018-05-03 14:45 | DRG 91 ==
LOC: M.ERS 11:20 → M.2W 13:53 → M.TBA-ER 13:53 → M.3W 13:53 → M.2W 15:34 → M.3W 05-01 19:34
PROVIDERS: Physician Assistant Surgical; ADMIT Internal Medicine
DX: G92 Toxic encephalopathy (principal); R65.11 Systemic inflammatory response syndrome (SIRS) of non-infectious origin with acute organ dysfunction; N30.01 Acute cystitis with hematuria; J96.11 Chronic respiratory failure with hypoxia; N17.9 Acute kidney failure, unspecified; J44.9 Chronic obstructive pulmonary disease, unspecified; I10 Essential (primary) hypertension; E11.9 Type 2 diabetes mellitus without complications; G89.29 Other chronic pain; M54.9 Dorsalgia, unspecified; F03.90 Unspecified dementia, unspecified severity, without behavioral disturbance, psychotic disturbance, mood disturbance, and anxiety; E66.9 Obesity, unspecified; Z96.651 Presence of right artificial knee joint; E87.8 Other disorders of electrolyte and fluid balance, not elsewhere classified; M19.90 Unspecified osteoarthritis, unspecified site; G47.33 Obstructive sleep apnea (adult) (pediatric); Z87.81 Personal history of (healed) traumatic fracture; Z87.01 Personal history of pneumonia (recurrent); Z79.4 Long term (current) use of insulin; Z79.899 Other long term (current) drug therapy; Z88.2 Allergy status to sulfonamides; Z87.891 Personal history of nicotine dependence; Z82.49 Family history of ischemic heart disease and other diseases of the circulatory system; Z83.3 Family history of diabetes mellitus; Z86.73 Personal history of transient ischemic attack (TIA), and cerebral infarction without residual deficits; Z68.30 Body mass index [BMI] 30.0-30.9, adult

== ENCOUNTER 2018-06-14 12:26 | Inpatient (IN) | payer MEDICARE, OTHER ==
[~2018-06-14] VITALS: Ht 162.6 cm; Wt 88.0 kg
--- NOTE | ~2018-06-14 | CON ---
[facility] [address] [place] [address] CONSULTATION Name: AZEB ALARCON Room: [address] IN .R.#: [id number] Admission: 06/14/18 Attend Phys: Glenis Herring Discharge: Date of : 35 Report #: [id number] THIS REPORT FOR: //name// CC: Shade Manninge Marina DATE OF SERVICE: 06/15/2018 REQUESTING PHYSICIAN: Dr. Tang. REASON FOR CONSULTATION: Acute kidney injury. HISTORY OF PRESENT ILLNESS: This pressure is very pleasant 83-year-old female admitted to the hospital on 06/14/2018 with complaints of shortness of breath. The patient states that symptoms started several days ago. She also had some pain in the right side of her chest. She had chest x-ray done that revealed a small to moderate size right pleural effusion and right basilar atelectasis versus pneumonitis. So she was admitted to the hospital and started on Lasix. Her Lasix was stopped today because renal function worsened. She also started on Zosyn 3.375 grams IV q.8h. Her creatinine today is 2.0, it is 1.7 yesterday. In reviewing old records her creatinine was 1.2. It looks like baseline creatinine is somewhere around 1.4-1.5. PAST MEDICAL HISTORY: Significant for: 1. Chronic kidney disease stage 3. 2. Chronic obstructive pulmonary disease. 3. History of cerebrovascular accident. 4. History of urinary tract infection. 5. She also has history of diabetes. 6. Hypertension. 7. Chronic back pain. 8. Atrial fibrillation. FAMILY HISTORY: Noncontributory. SOCIAL HISTORY: No current tobacco or alcohol abuse. REVIEW OF SYSTEMS: As mentioned earlier. PHYSICAL EXAMINATION: GENERAL: Awake, alert. VITAL SIGNS: Her blood pressure is 148/75, heart rate 95, afebrile. HEENT: Pupils are round. NECK: Supple. LUNGS: Decreased air movement at both bases, especially on the right side. CARDIOVASCULAR: [place]ant [place] [address] CONSULTATION Name: AZEB ALARCON Room: [address]#: [id number] Admission: 06/14/18 Attend Phys: Glenis Herring Discharge: Date of : 35 Report #: [id number] ABDOMEN: Soft. LOWER EXTREMITIES: Trace edema to 1+ edema. LABORATORY DATA: Her serum sodium 128, potassium 4.1, chloride 99, carbon dioxide 27, BUN 56 and creatinine 2.0, glucose 313. Her urinalysis pending. Her hemoglobin is pending. White count pending. Microbiology: Blood cultures pending. ASSESSMENT: An 83-year-old female admitted to the hospital with COPD exacerbation and right-sided pleural effusion with possible pneumonia and also acute kidney injury. Her acute kidney injury, probably due to infection process. I discussed this case with Dr. Cabrales. The patient is not in respiratory distress at this moment, so Lasix was stopped. I agree with his decision. I will order a renal ultrasound and ordered a urinalysis and order urine for eosinophils. Follow her labs. Thank you very much for asking my opinion on acute kidney injury in this patient. By: [id number] Mcghee MD /nt
[~2018-06-14 12:26] MED LIST changes: +MACRODANTIN100 MG PO
[2018-06-14 13:00] VITALS: BP 153/60
[2018-06-14 15:02] LABS: ALBUMIN 3.1 g/dL (3.4-5.0); CALCIUM 8.5 mg/dL (8.5-10.1); CREATININE 1.7 mg/dL (0.6-1.3); PHOSPHORUS* 3.3 mg/dL (2.5-4.9); TROPONIN-I LEVEL 0.3 ng/mL (<0.06)
--- NOTE | 2018-06-14 16:24 | 2DMMODE ---
[place] [address] 2 D/M-MODE ECHOCARDIOGRAM Name: AZEB ALARCON Room: [address] IN [facility]#: [id number] Admission: 06/14/18 Attend Phys: Shade Tang Discharge: Date of : 35 Date of Service: 06/14/18 1624 Report #: [id number] THIS REPORT FOR: //name// APPROVED REPORT Study performed: 06/14/2018 14:45:29 EXAM: Comprehensive 2D, Doppler, and color-flow Echocardiogram Patient Location: In-Patient Room #: [facility] Status: routine BSA: 1.92 HR: 114 bpm BP: 153/60 mmHg Other Information Study Quality: Fair Indications Resp failure 2D Dimensions IVSd: 14.15 (7-11mm) LVOT Diam: 20.60 (18-24mm) LVDd: 43.48 mm PWd: 14.51 (7-11mm) Ascending Ao: 29.25 (22-36mm) LVDs: 33.13 (25-40mm) Aortic Root: 29.10 mm Volumes Left Atrial Volume (Systole) LA ESV Index: 26.60 mL/m2 Aortic Valve AoV Peak Cristóbal.: 1.24 m/s AO Peak Gr.: 6.16 mmHg LVOT Max P.21 mmHg AO Mean Gr.: 3.57 mmHg LVOT Mean P.04 mmHg LVOT Max V: 0.74 m/s AO V2 VTI: 20.43 cm LVOT Mean V: 0.46 m/s AYLIN (VTI): 1.82 cm2 LVOT V1 VTI: 11.19 cm Mitral Valve MV Peak Gr.: 5.39 mmHg MV Mean Gr.: 2.61 mmHg E/A Ratio: 1.03 MV Decel. Time: 140.89 ms MV E Max Cristóbal.: 1.06 m/[place] [address] 2 D/M-MODE ECHOCARDIOGRAM Name: AZEB ALARCON Room: [address] IN .R.#: [id number] Admission: 06/14/18 Attend Phys: Shade Tang Discharge: Date of : 35 Date of Service: 06/14/18 1624 Report #: [id number] MV PHT: 40.86 ms MVA (PHT): 5.38 cm2 TDI E/Lateral E': 13.25 E/Medial E': 8.83 Medial E' Cristóbal.: 0.12 m/s Lateral E' Cristóbal.: 0.08 m/s Pulmonary Valve PV Peak Cristóbal.: 0.99 m/s PV Peak Gr.: 3.95 mmHg Left Ventricle The left ventricle is normal size. moderate apical hypokinesis noted Mild to moderate concentric left ventricular hypertrophy. Left ventricular systolic function is mildly decreased. LVEF is 45-50%. The left ventricular diastolic function is normal. Right Ventricle The right ventricle is normal size. The right ventricular systolic function is normal. Atria The left atrium size is normal. The right atrium size is normal. Aortic Valve The aortic valve is normal in structure. No aortic regurgitation is present. There is no aortic valvular stenosis. Mitral Valve The mitral valve is normal in structure. Mild mitral annular calcification. Mild to moderate mitral regurgitation. No evidence of mitral valve stenosis. Tricuspid Valve The tricuspid valve is normal in structure. There is no tricuspid valve regurgitation noted. Pulmonic Valve The pulmonary valve is normal in structure. There is no pulmonic valvular regurgitation. Great Vessels The aortic root is normal in size. IVC is normal in size and collapses >50% [place] [address] 2 D/M-MODE ECHOCARDIOGRAM Name: AZEB ALARCON Room: [address] IN .R.#: [id number] Admission: 06/14/18 Attend Phys: Shade Tang Discharge: Date of : 35 Date of Service: 06/14/18 1624 Report #: [id number] Pericardium There is no pericardial effusion. <Conclusion> Mild to moderate concentric left ventricular hypertrophy. LVEF is 45-50%. moderate apical hypokinesis noted Mild to moderate mitral regurgitation. <ELECTRONICALLY SIGNED> By: Damaso Renteria MD, FACC 06/14/18 1624 23 23 Damaso Renteria MD, FACC /INF
[2018-06-14 17:10] VITALS: BP 167/67
[2018-06-14 20:00] VITALS: BP 147/73
[2018-06-15] VITALS: BP 153/70
[2018-06-15 04:00] VITALS: BP 156/67
[2018-06-15 07:55] VITALS: BP 154/79
[2018-06-15 12:00] VITALS: BP 148/75
[2018-06-15 12:27] LABS: ALBUMIN 3.1 g/dL (3.4-5.0); CALCIUM 8.8 mg/dL (8.5-10.1); PHOSPHORUS* 4.1 mg/dL (2.5-4.9); POTASSIUM 4.1 mmol/L (3.5-5.1)
[2018-06-15 15:37] LABS: HEMATOCRIT 25.9 % (37.0-47.0); HEMOGLOBIN 8.3 gm/dL (12.0-15.0); MCH 28.9 pg (26.0-34.0); MCHC 32.1 g/dL (28.0-37.0); MCV 89.8 fL (80.0-100.0); MPV 9.2 fl. (7.2-11.1); NUCLEATED RBCS 0 /100WBC; PLATELET COUNT* 389 thou/uL (150-400); RBC 2.88 mil/uL (4.20-5.00); RDW-CV 16.2 % (10.5-14.5); WBC 12.1 thou/uL (4.0-11.0)
[2018-06-15 15:46] LABS: APTT 32.1 Seconds (25.0-31.3); INR 1.1; PROTIME 11.2 Seconds (9.20-11.50)
[2018-06-15 15:56] LABS: ABSOLUTE LYMPHOCYTES 0.5 thou/uL (0.8-5.3); ABSOLUTE MONOCYTES 0.1 thou/uL (0.0-1.2); ABSOLUTE NEUTROPHILS 11.5 thou/uL (1.6-8.1); PLATELET ESTIMATE ADEQUATE; TOXIC GRANULATION 1+
--- NOTE | 2018-06-15 16:24 | EKG ---
[place] [address] ELECTROCARDIOGRAM REPORT Name: AZEB ALARCON Room: [address] ADM IN M.R.#: [id number] Admission: 06/14/18 Attend Phys: Glenis Herring Discharge: Date of : 35 Report #: [id number] THIS REPORT FOR: //name// [facility] Test Date: 2018-06-15 Test Time: 16:04:25 Pat Name: AZEB ALARCON Department: Room: [address] Gender: F Disintegrator Operator: PORSCHE : 1935 Requested By: Ashvin Teague Order Number: [id number] Jian MD: Ashvin Teague Measurements Intervals [place] Rate: 93 P: 87 NE: 167 QRS: 86 QRSD: 145 T: 64 QT: 351 QTc: 437 Interpretive Statements Sinus rhythm Right bundle branch block Compared to ECG 04/27/2018 11:52:03 Atrial fibrillation no longer present Left anterior fascicular block no longer present Electronically Signed On 06-15-2018 16:23:54 INSTRUCTIONAL PARAPROFESSIONAL by Ashvin Teague [email or web address] <ELECTRONICALLY SIGNED> By: Ashvin Teague MD, FACC 06/15/18 1623 1604 1604 Ashvin Teague MD, FAC /EPI
[2018-06-15 19:50] VITALS: BP 146/59
[2018-06-16] VITALS: BP 142/57
[2018-06-16 04:00] VITALS: BP 142/64
[2018-06-16 06:32] LABS: HEMATOCRIT 25.2 % (37.0-47.0); HEMOGLOBIN 7.9 gm/dL (12.0-15.0); MCH 28.2 pg (26.0-34.0); MCHC 31.6 g/dL (28.0-37.0); MCV 89.4 fL (80.0-100.0); MPV 9.3 fl. (7.2-11.1); NUCLEATED RBCS 0 /100WBC; PLATELET COUNT* 385 thou/uL (150-400); RBC 2.82 mil/uL (4.20-5.00); RDW-CV 16.5 % (10.5-14.5); WBC 19.2 thou/uL (4.0-11.0)
[2018-06-16 06:56] LABS: URINE BILIRUBIN NEGATIVE (Negative); URINE BLOOD 3+ (Negative); URINE CLARITY CLEAR; URINE COLOR YELLOW; URINE GLUCOSE-RANDOM NEGATIVE (Negative); URINE KETONES NEGATIVE (Negative); URINE LEUKOCYTES TRACE (Negative); URINE NITRITE NEGATIVE (Negative); URINE PROTEIN 2+ (Negative); URINE UROBILINOGEN 0.2 E.U./dl (0.2-1.0)
[2018-06-16 06:58] LABS: ALBUMIN 3.2 g/dL (3.4-5.0); ALKALINE PHOSPHATASE 69 U/L (46-116); ANION GAP 10 mmol/L (7-16); BUN 66 mg/dL (7-18); CALCIUM 9.2 mg/dL (8.5-10.1); CHLORIDE 98 mmol/L (98-107); CO2 28 mmol/L (21-32); CREATININE 2.2 mg/dL (0.6-1.3); GLUCOSE 170 mg/dL (70-99); LIPASE 53 U/L (73-393); MAGNESIUM 1.8 mg/dL (1.8-2.4); NT-PRO BRAIN NAT PEPTIDE > 35000 pg/mL (<300); PHOSPHORUS* 4.3 mg/dL (2.5-4.9); POTASSIUM 4.1 mmol/L (3.5-5.1); SGOT 14 U/L (15-37); SGPT 15 U/L (30-65); SODIUM 136 mmol/L (136-145); TOTAL PROTEIN 6.8 g/dL (6.4-8.2)
[2018-06-16 07:10] LABS: ABSOLUTE LYMPHOCYTES 0.4 thou/uL (0.8-5.3); ABSOLUTE MONOCYTES 0.4 thou/uL (0.0-1.2); ABSOLUTE NEUTROPHILS 18.4 thou/uL (1.6-8.1); ANISOCYTOSIS 1+; HYPOCHROMASIA 1+; OVALOCYTES Occasional; PLATELET ESTIMATE ADEQUATE; POIKILOCYTOSIS 1+
[2018-06-16 07:12] LABS: BACTERIA 1-9 Few /HPF (None Seen); CASTS None Seen /LPF (None Seen); CRYSTALS None Seen /LPF (None Seen); MUCUS 4-6 Moderate strn/LPF (None Seen); SQUAMOUS 0-3 Few /LPF (0-3); URINE RBC >20 Many /HPF (0-2); URINE WBC 6-15 Few /HPF (0-5)
[2018-06-16 08:04] VITALS: BP 128/66
--- NOTE | 2018-06-16 08:22 | CON ---
[facility] [address] [place] [address] CONSULTATION Name: AZEB ALARCON Room: [address] IN .R.#: [id number] Admission: 06/14/18 Attend Phys: Glenis Herring Discharge: Date of : 35 Report #: [id number] THIS REPORT FOR: //name// CC: Shade Tang Chance Schereremeli DATE OF SERVICE: 06/15/2018 INDICATION: Acute shortness of breath and elevated troponin. HISTORY OF PRESENT ILLNESS: The patient is an 83-year-old white female with longstanding history of COPD and respiratory failure. She was admitted with increasing shortness of breath. Chest x-ray shows extensive atelectasis and possible right effusion with possible right lower lobe pneumonia. In this setting, she has a troponin of 0.3. Echocardiogram suggests mild LV systolic dysfunction and mild diastolic dysfunction. The patient has had orthopnea, paroxysmal nocturnal dyspnea, dyspnea on exertion, and shortness of breath at rest. I do not see a history of diagnosed coronary artery disease. She denies any myocardial infarction. She does report some chest discomfort, which is worse when she lies flat and describes it as a band across her chest. She has the pain at rest and it is associated with her shortness of breath. She is not having fevers or chills. PAST MEDICAL HISTORY: 1. Paroxysmal atrial flutter. 2. Carotid vascular disease. 3. Stroke 1-1/2 years ago. 4. Hypertension. 5. Dyslipidemia. 6. Type 2 diabetes mellitus. 7. Remote history of tobacco use. 8. Breast cancer 2 years ago, status post lumpectomy. FAMILY HISTORY: Positive for coronary artery disease in the patient's father. SOCIAL HISTORY: The patient is retired. She does not smoke currently. She does not drink alcohol. ALLERGIES: SULFA. CURRENT MEDICATIONS: Allopurinol 100 mg daily, amlodipine 10 mg daily, Eliquis 2.5 mg b.i.d., atorvastatin 20 mg at bedtime, Tessalon Perles 100 mg t.i.d., BiPAP as directed, Pulmicort 0.5 mg inhalation daily, calcium with D supplement daily, vitamin D supplement daily, Celexa 30 mg daily, clonidine 0.1 mg b.i.d., Colace 100 mg daily, fish oil 1200 mg daily, guaifenesin 1200 mg b.i.d., NovoLog as directed a.c. and at bedtime, Levemir 10 units at bedtime, [place] [address] CONSULTATION Name: AZEB ALARCON Room: [address]#: [id number] Admission: 06/14/18 Attend Phys: Glenis eHrring Discharge: Date of : 35 Report #: [id number] q.i.d. p.r.n., probiotic one capsule daily, Singulair 10 mg at bedtime, multivitamin 1 tablet daily, Macrodantin 100 mg b.i.d., Protonix 40 mg daily. REVIEW OF SYSTEMS: A 14-point review of systems is positive for generalized weakness, cough productive of green sputum, pneumonia 4 times this year, COPD, chest discomfort, shortness of breath, orthopnea, paroxysmal nocturnal dyspnea, edema, diabetes, anemia, breast cancer, ALLERGY TO SULFA, depression, anxiety, arthritis. She wears glasses, decreased hearing and dentures. Otherwise, 14-point review of systems is unremarkable. PHYSICAL EXAMINATION: VITAL SIGNS: Blood pressure 148/75, pulse 95 and regular. GENERAL: This is an elderly female who appears moderately short of breath at rest. HEENT: O2 nasal cannula in place. Extraocular muscles are intact. Mucous membranes are moist. NECK: Shows no obvious jugular venous distention. I do not appreciate bruit. CHEST: Reveals diminished breath sounds in the right base. I do not appreciate obvious rales. CARDIOVASCULAR: Reveals a regular rhythm without gallop or murmur. ABDOMEN: Reveals normal bowel sounds. EXTREMITIES: Reveals 2+ doughy edema of the lower extremities to the knees bilaterally. SKIN: Warm and dry. LABORATORY DATA: Reviewed. Sodium 138, potassium 4.1, chloride 99, bicarbonate 27, BUN 56, creatinine 2.0. Serum glucose 313. Troponin 0.3. NT-proBNP 11,173. White blood cell count 11.4, hemoglobin 10.7, platelet count 192,000. Chest x-ray shows bibasilar atelectasis and right pleural effusion with possible pneumonitis. EKG is pending. Echocardiogram is pending. IMPRESSION AND RECOMMENDATIONS: 1. Acute shortness of breath, multifactorial due to pneumonia and likely acute and diastolic heart failure. 2. Pneumonia per primary physician. 3. Acute on chronic diastolic heart failure. Recommend diuresis with IV Lasix at this time. We will follow clinically. 4. Elevated troponin secondary to type 2 myocardial infarction due to heart failure. Doubt acute coronary syndrome. We will follow clinically. Echocardiogram ordered and pending. 5. Hypertension. We will make adjustments in antihypertensives as needed. [address] [address] CONSULTATION Name: AZEB ALARCON Room: [address]#: [id number] Admission: 06/14/18 Attend Phys: Glenis Herring Discharge: Date of : 35 Report #: [id number] 6. Dyslipidemia. Continue atorvastatin at current dose. 7. History of paroxysmal atrial flutter. The patient presently in sinus rhythm. Eliquis, presently being held, presumably for possible further invasive treatment. We will follow clinically. <ELECTRONICALLY SIGNED> By: Ashvin Teague MD, FACC 06/16/18 0822 1405 [id number] Teague MD, FACC /nt
--- NOTE | 2018-06-16 11:14 | CON ---
[facility] [address] [place] [address] CONSULTATION Name: AZEB ALARCON Room: [address] IN M.R.#: [id number] Admission: 06/14/18 Attend Phys: Glenis Herring Discharge: Date of : 35 Report #: [id number] THIS REPORT FOR: //name// CC: Shade Tang Chance Gray DATE OF SERVICE: 06/15/2018 REQUESTING PHYSICIAN: Shade Tang MD. INDICATION FOR CONSULTATION: Shortness of breath. HISTORY OF PRESENT ILLNESS: This is an 83-year-old female. She is a resident of a long-term care facility. She is on long-term oxygen. She is not on long-term prednisone. She does carry a diagnosis of COPD. The patient, however, is now stating that she discontinued smoking long time ago, perhaps in the 1960s. The patient does, however, have a history of dementia and it is possible that she is not able to recall accurately. She also has a history of atrial fibrillation. She is on Eliquis long-term. Her echo is as described below. I am not aware of any ischemic workup that may have been performed in the past. The patient has had acute renal failure in the past; however, her baseline creatinine is 1.2. Therefore, as described below, she is in acute renal failure at this time. The patient says that she is here because she is having increase in shortness of breath. She has also had cough with thick white sputum production. There is no chest pain. She is not aware of any fever. There is no runny nose. She does describe increase in swelling of lower extremities. There is no calf pain. The patient currently is maintaining O2 saturation around 93% on 6 liters oxygen. As noted above, the patient at baseline uses 2-3 liters oxygen. Therefore, oxygen needs are higher than her baseline. The patient answers to the negative for 12 questions for review of systems except as mentioned above; however, the patient's ability to understand questions does appear to be limited. PAST MEDICAL HISTORY: COPD is mentioned on the records described above on long-term oxygen. I do not have previous PFTs available. Atrial fibrillation, on Eliquis long-term. Not known to me as to whether any ischemic workup has been performed in the past. The patient's left ventricular ejection fraction on a recent echo is 45-50%. There is mild to moderate mitral regurgitation. The pulmonary artery systolic is likely not elevated as tricuspid valve is described as being normal on this echo report. Also, diabetes, chronic pain syndrome, hypertension, kidney surgery, chronic back pain, tonsillectomy, osteoarthritis, possible history of obstructive sleep apnea, right elbow fracture requiring surgery, obesity. SOCIAL HISTORY: The patient has a previous history [place] [address] CONSULTATION Name: GORDOJEANIE MADISONALBINA Johnson Room: [address] IN [facility].#: [id number] Admission: 06/14/18 Attend Phys: Glenis Herring Discharge: Date of : 35 Report #: [id number] resident of a long-term care facility. The patient, however, states that she discontinued smoking back in the 1960s. No known history of heavy alcohol use or illegal drug use. CURRENT MEDICATIONS: The list is in [facility], reviewed. HOME MEDICATIONS: The list also in [facility], reviewed. FAMILY HISTORY: Heart disease and diabetes. ALLERGIES: THE PATIENT IS REPORTED TO BE ALLERGIC TO SULFONAMIDE ANTIBIOTICS. PHYSICAL EXAMINATION: GENERAL: She is alert, awake and oriented; however, able to provide only a limited history, is sitting comfortably in a chair. VITAL SIGNS: Has a pulse of 95, irregular with a blood pressure of 148/75. She is saturating 93% on 6 liters nasal cannula, respiratory rate is 17. She is afebrile with a temperature of 36.9. HEENT: Head is normocephalic and atraumatic. Pupils are equal and reactive. There is no throat erythema. NECK: Does not show raised JVP, asymmetry, mass or lymph nodes. CHEST: Does show decrease expansion on the right side compared to the left on inspection and palpation. On auscultation, I do not hear breath sounds at the right lung base. Expirations are prolonged. I do not hear any added sounds. HEART: Irregular. There is no murmur. ABDOMEN: Soft and nontender. EXTREMITIES: Lower extremities do show 2+ edema bilaterally. There is no calf tenderness. SKIN: Dry and intact. NEUROLOGICAL: Moves all extremities bilaterally equally and spontaneously. There is no focal deficit identified. LABORATORY DATA: The patient's chest x-ray is reviewed, shows a large infiltrate in the right middle lobe/lower lobe region. There is pleural effusion consistent with a parapneumonic pleural effusion also present. There is no increase in pulmonary vascular congestion. The patient's chemistries performed today are in [facility], reviewed. I do not have any other labs from this admission available. The patient does have significant hyperglycemia. ASSESSMENT AND PLAN: 1. Shortness of breath/hypoxia. The patient's chest x-ray is consistent with pneumonia with a parapneumonic pleural effusion. This is the likely etiology of the patient's shortness of breath. The patient does appear to be fluid overloaded as well and she does have acute renal failure based on her labs. It is possible that there is a component of bronchospasm as well. 2. Pneumonia with parapneumonic pleural effusion. Considering acute renal [facility] [address] [place] [address] CONSULTATION Name: AZEB ALARCON Room: [address] IN .R.#: [id number] Admission: 06/14/18 Attend Phys: Glenis Herring Discharge: Date of : 35 Report #: [id number] failure, I do not want to administer vancomycin at this time. She does come from a long-term care facility. I considered use of linezolid; however, the patient is on Celexa, which will need to be held if we order linezolid. Therefore, for now, I started with doxycycline as well as Zosyn in addition to doing cultures. If the patient's condition fails to improve, then I will recommend starting linezolid and in that case, we will hold Celexa, would favor holding off on vancomycin. 3. Chronic obstructive pulmonary disease exacerbation. There may be a component of bronchospasm as well. Therefore, I agree with continuing with nebulized bronchodilators as well as Solu-Medrol. Note that she is on long-term oxygen, although she says that she discontinued smoking back in the 1960s. I feel that we can still go ahead and cut back the dose of Solu-Medrol though. 4. Parapneumonic pleural effusion. I favor performing a thoracentesis. The patient has been on Eliquis. Therefore, we will hold Eliquis for 48 hours and then plan on thoracentesis. Note that since an option to hold medications is not available in the computer in this hospital, I have discontinued Eliquis, so recommend restarting once thoracentesis has been performed if appropriate. 5. Acute renal failure with fluid overload. She is fluid overloaded. Note also that her creatinine is 1.2 at baseline. Creatinine now is 2.0. Therefore, I discontinued her daily scheduled Lasix; however, I do recommend reevaluating every day and administering diuretics as appropriate. I recommend that we should also go ahead and rule out urinary tract obstruction by doing a renal ultrasound. 6. Atrial fibrillation. She is on long-term anticoagulation. See above for further discussion. 7. Diabetes. 8. Long-term proton pump inhibitor use. 9. Possible history of obstructive sleep apnea. This is mentioned on the records. We will try to find more details. If the patient is able to comfortably wear BiPAP while asleep, then this may be of benefit; however, at first glance, it appears to me that it may be difficult for her to wear a BiPAP while asleep. 10. Aspiration precautions. The same is also ordered. I will also recommend a swallow evaluation. Thanks for this consultation. <ELECTRONICALLY SIGNED> By: Christina Bowman MD 06/16/18 1114 [id number] [id number] Cabrales MD /kunal
[2018-06-16 12:00] VITALS: BP 133/57
[2018-06-16 12:40] LABS: SMEAR FOR EOSINOPHILS No Eosinophils Seen
[2018-06-16 16:00] VITALS: BP 143/55
[2018-06-16 20:00] VITALS: BP 142/68
[2018-06-17 00:22] VITALS: BP 133/97
[2018-06-17 04:09] VITALS: BP 142/77
[2018-06-17 05:22] LABS: ABSOLUTE LYMPHOCYTES 0.4 thou/uL (0.8-5.3); ABSOLUTE MONOCYTES 0.8 thou/uL (0.0-1.2); ABSOLUTE NEUTROPHILS 17.9 thou/uL (1.6-8.1); BASOPHILS 0.1 %; HEMATOCRIT 23.4 % (37.0-47.0); HEMOGLOBIN 7.6 gm/dL (12.0-15.0); MCH 28.9 pg (26.0-34.0); MCHC 32.4 g/dL (28.0-37.0); MCV 89.3 fL (80.0-100.0); MONOCYTES 4.1 %; MPV 9.2 fl. (7.2-11.1); NUCLEATED RBCS 0 /100WBC; PLATELET COUNT* 350 thou/uL (150-400); POLYS 93.8 %; RBC 2.62 mil/uL (4.20-5.00); RDW-CV 16.6 % (10.5-14.5); WBC 19.1 thou/uL (4.0-11.0)
[2018-06-17 05:39] LABS: CALCIUM 8.9 mg/dL (8.5-10.1); CREATININE 2.3 mg/dL (0.6-1.3); MAGNESIUM 1.9 mg/dL (1.8-2.4)
[2018-06-17 08:20] VITALS: BP 151/66
[2018-06-17 12:00] VITALS: BP 145/61
[2018-06-17 16:00] VITALS: BP 141/56
[2018-06-17 16:57] LABS: BF RBC <1000 /mm3
[2018-06-17 17:03] LABS: TOTAL CELL COUNT 135 /mm3
[2018-06-17 17:41] LABS: CLARITY CLEAR; COLOR YELLOW; TOTAL VOLUME 400 ml
[2018-06-17 18:20] LABS: BF LYMPHOCYTES 31 %; BF MONOCYTES 44 %; BF POLYS 25 %; BF TISSUE 5 /100 WBC; SOURCE PLEURAL
[2018-06-17 20:00] VITALS: BP 177/63
[2018-06-18] VITALS: BP 148/61
[2018-06-18 04:58] VITALS: BP 160/64
[2018-06-18 05:03] LABS: MCH 28.5 pg (26.0-34.0); MCHC 31.9 g/dL (28.0-37.0); MCV 89.3 fL (80.0-100.0); MPV 9.4 fl. (7.2-11.1); NUCLEATED RBCS 0 /100WBC; PLATELET COUNT* 380 thou/uL (150-400); RDW-CV 16.8 % (10.5-14.5); WBC 22.2 thou/uL (4.0-11.0)
[2018-06-18 05:28] LABS: ALBUMIN 3.3 g/dL (3.4-5.0); CALCIUM 8.9 mg/dL (8.5-10.1); CREATININE 2.5 mg/dL (0.6-1.3); MAGNESIUM 1.7 mg/dL (1.8-2.4); POTASSIUM 3.7 mmol/L (3.5-5.1); TOTAL PROTEIN 6.9 g/dL (6.4-8.2)
[2018-06-18 05:32] LABS: ALBUMIN 3.4 g/dL (3.4-5.0); CALCIUM 8.9 mg/dL (8.5-10.1); CREATININE 2.6 mg/dL (0.6-1.3); PHOSPHORUS* 4.7 mg/dL (2.5-4.9); POTASSIUM 3.9 mmol/L (3.5-5.1)
[2018-06-18 08:00] VITALS: BP 148/64
[2018-06-18 12:00] VITALS: BP 129/54
[2018-06-18 15:00] LABS: ABSOLUTE LYMPHOCYTES 0.4 thou/uL (0.8-5.3); ABSOLUTE MONOCYTES 1.4 thou/uL (0.0-1.2); ABSOLUTE NEUTROPHILS 20.3 thou/uL (1.6-8.1); LYMPHOCYTES 1.9 %; MONOCYTES 6.5 %; POLYS 91.6 %
[2018-06-18 16:46] VITALS: BP 140/96
[2018-06-18 20:32] VITALS: BP 140/42
[2018-06-19] VITALS: BP 112/56
[2018-06-19 04:00] VITALS: BP 131/69
[2018-06-19 06:08] LABS: HEMATOCRIT 23.3 % (37.0-47.0); HEMOGLOBIN 7.5 gm/dL (12.0-15.0); MCH 28.6 pg (26.0-34.0); MCHC 32.3 g/dL (28.0-37.0); MCV 88.4 fL (80.0-100.0); MPV 9.7 fl. (7.2-11.1); NUCLEATED RBCS 0 /100WBC; PLATELET COUNT* 312 thou/uL (150-400); RBC 2.64 mil/uL (4.20-5.00); RDW-CV 16.7 % (10.5-14.5); WBC 16.4 thou/uL (4.0-11.0)
[2018-06-19 06:29] LABS: CALCIUM 8.7 mg/dL (8.5-10.1); CREATININE 2.8 mg/dL (0.6-1.3); MAGNESIUM 2.1 mg/dL (1.8-2.4); PHOSPHORUS* 4.9 mg/dL (2.5-4.9); POTASSIUM 4.1 mmol/L (3.5-5.1); TOTAL PROTEIN 6.3 g/dL (6.4-8.2)
[2018-06-19 07:23] LABS: ABSOLUTE LYMPHOCYTES 0.7 thou/uL (0.8-5.3); ABSOLUTE MONOCYTES 0.5 thou/uL (0.0-1.2); ABSOLUTE NEUTROPHILS 15.3 thou/uL (1.6-8.1); HYPOCHROMASIA 3+; OVALOCYTES 1+; PLATELET ESTIMATE ADEQUATE; TARGET CELLS 2+
[2018-06-19 07:24] LABS: SCHISTOCYTES 1+
[2018-06-19 07:25] LABS: ANISOCYTOSIS 1+; POIKILOCYTOSIS 2+
[2018-06-19 08:30] VITALS: BP 150/60
[2018-06-19 11:37] LABS: URIC ACID* 7.3 mg/dL (2.6-7.2)
[2018-06-19 12:38] VITALS: BP 166/71
[2018-06-19 16:20] VITALS: BP 128/59
[2018-06-19 20:00] VITALS: BP 144/69
[2018-06-20] VITALS: BP 132/55
[2018-06-20 04:00] VITALS: BP 138/59
[2018-06-20 05:59] LABS: ALBUMIN 3.1 g/dL (3.4-5.0); CREATININE 2.9 mg/dL (0.6-1.3); POTASSIUM 3.7 mmol/L (3.5-5.1)
--- NOTE | 2018-06-20 07:46 | CON ---
[address] [address] CONSULTATION Name: AZEB ALARCON Room: [address] IN M.R.#: [id number] Admission: 06/14/18 Attend Phys: Glenis Herring Discharge: Date of : 35 Report #: [id number] THIS REPORT FOR: //name// CC: Shade Gray DATE OF SERVICE: 06/19/2018 ATTENDING PHYSICIAN: Dr. Tang. REASON FOR EVALUATION: Bilateral pneumonitis complicated by respiratory failure, encephalopathy. HISTORY OF PRESENT ILLNESS: Chart reviewed, patient examined. This is an 83-year-old admitted with complaints of progressive dyspnea, cough that is somewhat productive of thick white sputum. Also complained of chest related pain. It is not clear if she has had fevers. Denies any chills or shakes. Had poor appetite. Has been evaluated, was found to have bilateral infiltrates on chest x-ray, hypoxemia requiring supplemental O2 per nasal cannula. In spite of aggressive antimicrobial therapy with doxycycline and Zosyn, there has been little improvement. Did undergo thoracentesis, so far the laboratory analysis and culture have been unrevealing. She is tentatively scheduled to have a stress test, although this has been postponed due to her tenuous situation and is concerned about reaccumulation and discussion about possible additional thoracentesis. ALLERGIES: Listed to SULFA. CURRENT MEDICATIONS: Include methylprednisolone, ipratropium, albuterol inhaler, apixaban, Zosyn, hydrocodone, citalopram, allopurinol, amlodipine, cholecalciferol, budesonide, pantoprazole, atorvastatin, insulin, clonidine, montelukast, docusate, guaifenesin, benzonatate, doxycycline, acetylcysteine. PAST MEDICAL HISTORY: As described above. In addition, the patient has known chronic obstructive pulmonary disease; hypertension; diabetes mellitus type 2, insulin requiring; history of chronic back pain; arthritis; obstructive sleep apnea; atrial fibrillation; history of previous pneumonia; previous stroke; history of depression. SOCIAL HISTORY: Former smoker. No ethanol, no illicit drug use. FAMILY HISTORY: Noncontributory. REVIEW OF SYSTEMS: Somewhat limited due to her encephalopathy. She does admit to the chest-related discomfort. Denies any abdominal-related pain. No nausea, diarrhea, otherwise unremarkable 10-point review of [place] [address] CONSULTATION Name: AZEB ALARCON Alex Room: [address]#: [id number] Admission: 06/14/18 Attend Phys: Glenis Herring Discharge: Date of : 35 Report #: [id number] PHYSICAL EXAMINATION: GENERAL: She is lethargic to somnolent. She is dyspneic. She appears chronically ill, undernourished. HEENT: Nasal cannula oxygen in place. NECK: Appears to be supple. There is no notable oral lesions. Mucous membranes are somewhat dry. LUNGS: Rales in particular left greater than right noted. HEART: Somewhat irregular, rate is controlled. There is a soft systolic murmur. ABDOMEN: Soft. There are no peritoneal signs. I do not appreciate any organomegaly. Distal lower extremities have 1+ edema. GENITOURINARY: Deferred. RECTAL: Deferred. LABORATORY DATA: Chest x-ray, cardiomegaly, prominent vascularity, patchy bilateral pulmonary opacities. CBC most recently, white count of 16.4, H and H 7.5 and 23.3, platelets of 312. Differential otherwise unremarkable. Lymphocytopenia of 700 ____ some target cells. Electrolytes: Sodium 137, potassium 100, bicarbonate is 25, anion gap of 12, BUN and creatinine 95 and 2.8. LFTs unremarkable. Albumin of 3.0, total protein of 6.3, estimated GFR of 16. Thoracentesis fluid is yellow, clear 400 mL with a total cell count of 135, red cells less than 1,000, 25% polys, 44, mono, 31% lymphs. Blood cultures collected on the are sterile thus far. ASSESSMENT AND PLAN: Pneumonitis, complicated by respiratory failure and certainly has multiorgan dysfunction as well. Difficult to ascertain if it is an issue with antibiotics, seems less likely since she is not clinically deteriorating. She is not hemodynamically unstable. We will adjust antimicrobial therapy, certainly worry about adverse drug effects. At this point, it is unlikely to obtain a sputum sample. May benefit from thoracentesis to increase capacity. Noted plans for swallow studies, suspect at risk for aspiration. We will see how she does clinically. <ELECTRONICALLY SIGNED> By: Bossman Jaramillo MD 06/20/18 0746 [id number] Jaramillo MD /nt
[2018-06-20 08:00] VITALS: BP 123/89
[2018-06-20 11:55] VITALS: BP 144/58
[2018-06-20 15:53] VITALS: BP 124/53
[2018-06-20 17:12] LABS: BODY FLUID LDH 58 IU/L (()); BODY FLUID PH 7.8 (Not Estab.); BODY FLUID PROTEIN 1.5 g/dL (())
[2018-06-20 20:00] VITALS: BP 149/62
[2018-06-21 01:04] VITALS: BP 137/60
[2018-06-21 04:00] VITALS: BP 125/57
[2018-06-21 06:14] LABS: ALBUMIN 3.2 g/dL (3.4-5.0); CALCIUM 9.2 mg/dL (8.5-10.1); CREATININE 3.1 mg/dL (0.6-1.3); MAGNESIUM 2.3 mg/dL (1.8-2.4); PHOSPHORUS* 6.6 mg/dL (2.5-4.9); POTASSIUM 4.6 mmol/L (3.5-5.1)
[2018-06-21 08:59] LABS: BE -4.9 mmol/L (-2 to +3); HCO3 20.1 mmol/L (22.0-26.0); PCO2 36.6 mmHg (35.0-45.0); pH 7.358 (7.340-7.450)
[2018-06-21 09:04] LABS: PO2 58.9 mmHg (75.0-100.0)
[2018-06-21] MEDS ORDERED: DOXYCYCLINE 10100 MG PO (09:26)
[2018-06-21] MEDS ORDERED: PREDNISONE 10 M10 MG PO (09:26)
[2018-06-21] MEDS ORDERED: CEFUROXIME500 MG PO (09:26)
[2018-06-21 12:00] VITALS: BP 100/82
--- NOTE | 2018-06-21 14:09 | PATH ---
[address] [address] PATHOLOGY RPT PROCEDURE Name: AZEB ALARCON Alex Room: [address] IN [facility]#: [id number] Admission: 06/14/18 Date of : 35 Discharge: Report #: [id number] Path Case #: [id number] Note [facility] Accession Number: [id number] TESTS RESULT FLAG UNITS REF RANGE LAB Clinician Provided Cytology Information No. of containers..01 Body Fluid in a Sterile Container Source: 01 PLEURAL FLUID Clinician ICD10: 01 I50.31 J96.21 DIAGNOSIS: 02 PLEURAL FLUID NEGATIVE FOR MALIGNANT CELLS. SCANT CELLULARITY. MESOTHELIAL CELLS ARE PRESENT. THIS INTERPRETATION INCLUDES EVALUATION OF A CELL BLOCK. Signed out by: 02 Ashvin Christianson MD, Pathologist NPI- [id number] Performed by: Jacinto Larson, Operator ([facility]) Gross description: 01 60 ML, YELLOW, CLEAR /LCS FLAG LEGEND: L-Low Normal,H-High Normal,LL-Alert Low,HH-Alert High <-Panic Low,>-Panic High,A-Abnormal,AA-Critical Abnormal Performed at: [address] [place] [address] Varun Arnold MD, [address] [place] [id number] Farrukh Pate MD, [facility] Comment: A courtesy copy of this report has been sent to [employer] Comment: [phone]. Specimen Comment: Report sent to [facility] Comment: A duplicate report has been generated due to demographic updates. Performed at: [address], [place], [place] [id number] MD aVrun Arnold MD Phone: [phone]
[2018-06-26 15:08] LABS: SOURCE THORACENTESIS
== END 2018-06-21 15:27 | disposition hospice, home (50) | DRG 177 ==
LOC: M.2W 12:26
PROVIDERS: Internal Medicine; Internal Medicine Cardiovascular Disease; Internal Medicine Critical Care Medicine; Internal Medicine Nephrology; ADMIT Internal Medicine
PROC: 0W993ZZ Drainage of Right Pleural Cavity, Percutaneous Approach (ICD-10-PCS; principal; 2018-06-17)
PROC: 5A09357 Assistance with Respiratory Ventilation, Less than 24 Consecutive Hours, Continuous Positive Airway Pressure (ICD-10-PCS; 2018-06-19)
PROC: 5A09357 Assistance with Respiratory Ventilation, Less than 24 Consecutive Hours, Continuous Positive Airway Pressure (ICD-10-PCS; 2018-06-20)
DX: J69.0 Pneumonitis due to inhalation of food and vomit (principal); J96.21 Acute and chronic respiratory failure with hypoxia; R65.11 Systemic inflammatory response syndrome (SIRS) of non-infectious origin with acute organ dysfunction; I21.A1 Myocardial infarction type 2; N17.0 Acute kidney failure with tubular necrosis; I50.43 Acute on chronic combined systolic (congestive) and diastolic (congestive) heart failure; J96.22 Acute and chronic respiratory failure with hypercapnia; J44.1 Chronic obstructive pulmonary disease with (acute) exacerbation; I48.92 Unspecified atrial flutter; I13.0 Hypertensive heart and chronic kidney disease with heart failure and stage 1 through stage 4 chronic kidney disease, or unspecified chronic kidney disease; Z66 Do not resuscitate; I27.20 Pulmonary hypertension, unspecified; D64.9 Anemia, unspecified; K59.00 Constipation, unspecified; K80.20 Calculus of gallbladder without cholecystitis without obstruction; N26.1 Atrophy of kidney (terminal); M25.559 Pain in unspecified hip; F41.9 Anxiety disorder, unspecified; G47.33 Obstructive sleep apnea (adult) (pediatric); E66.9 Obesity, unspecified; E11.22 Type 2 diabetes mellitus with diabetic chronic kidney disease; N18.3 Chronic kidney disease, stage 3 (moderate); G89.4 Chronic pain syndrome; M19.90 Unspecified osteoarthritis, unspecified site; F03.90 Unspecified dementia, unspecified severity, without behavioral disturbance, psychotic disturbance, mood disturbance, and anxiety; I48.91 Unspecified atrial fibrillation; E78.5 Hyperlipidemia, unspecified; Z85.3 Personal history of malignant neoplasm of breast; Z86.73 Personal history of transient ischemic attack (TIA), and cerebral infarction without residual deficits; Z82.49 Family history of ischemic heart disease and other diseases of the circulatory system; Z88.2 Allergy status to sulfonamides; Z87.440 Personal history of urinary (tract) infections; Z83.3 Family history of diabetes mellitus; Z87.891 Personal history of nicotine dependence; Z79.01 Long term (current) use of anticoagulants; Z68.33 Body mass index [BMI] 33.0-33.9, adult